=== PATIENT | female | born 1940 | race Caucasian/White ===

== ENCOUNTER 2018-05-12 00:26 | Inpatient (IN) ==
[2018-05-12] MEDS ORDERED: Pantoprazole Inj 80 MG in Sodium Chlor 0.9% Inj 50 ML IV.SIG ONE (00:56)
[2018-05-12] MEDS ORDERED: Sod Chloride 0.9% Inj 1,000 ML IV.CONT SCH (01:00)
--- NOTE | 2018-05-12 01:27 | XR ---
EXAM DATE: 05/12/2018 1:19 AM EDT AGE/SEX: 77 years / Female INDICATIONS: G-I Bleed. CLINICAL DATA: This is the patient's initial encounter. Patient reports that signs and symptoms have been present for 1 day and indicates a pain score of 0/10. MEDICAL/SURGICAL HISTORY: Hypertension. None. COMPARISON: [place], CHEST SINGLE AP, 05/17/2013. . FINDINGS: Mild atelectasis of both bases. No large effusions seen. No pneumothorax. Heart size upper limits of normal. Thoracic aorta is tortuous. There is a hiatal hernia. CONCLUSION: Mild bibasilar atelectasis. Hiatal hernia. Electronically signed by: Gerard Patel MD 05/12/2018 1:25 AM EDT
[2018-05-12 01:35] LABS: Baso # (Auto) 0.1 th/mm3 (0.0-0.2); Baso % (Auto) 0.9 % (0.0-2.0); Eos # (Auto) 0.7 th/mm3 (0.0-0.4); Eos % (Auto) 8.8 % (0.0-4.0); Hematocrit 27.4 % (35.0-46.0); Hemoglobin 9.5 gm/dL (11.6-15.3); Lymph # (Auto) 2.2 th/mm3 (1.0-4.8); Mean Corpuscular HGB Conc 34.6 % (32.0-36.0); Mean Corpuscular Hemoglobin 30.9 pg (27.0-34.0); Mean Corpuscular Volume 89.1 fL (80.0-100.0); Mean Platelet Volume 8.8 fL (7.0-11.0); Mono # (Auto) 0.9 th/mm3 (0.0-0.9); Mono % (Auto) 12.1 % (0.0-8.0); Neut # (Auto) 3.7 th/mm3 (1.8-7.7); Neut % (Auto) 49.2 % (16.0-70.0); Platelet Count 250 th/mm3 (150-450); Red Blood Count 3.07 mil/mm3 (4.00-5.30); Red Cell Distribution Width 14.8 % (11.6-17.2); White Blood Count 7.5 th/mm3 (4.0-11.0)
[2018-05-12 01:47] LABS: Alanine Aminotransferase 16 U/L (10-53); Albumin 2.6 g/dL (3.4-5.0); Anion Gap 9 meq/L (5-15); Aspartate Aminotransferase 11 U/L (15-37); Blood Urea Nitrogen 19 mg/dL (7-18); Calcium 7.5 mg/dL (8.5-10.1); Carbon Dioxide 23.6 meq/L (21.0-32.0); Chloride 110 meq/L (98-107); Glomerular Filtration Rate 58 mL/min (>89); Glucose,Random 135 mg/dL (74-106); Lipase 244 U/L (73-393); Magnesium 2.1 mg/dL (1.5-2.5); Potassium 3.8 meq/L (3.5-5.1); Sodium 143 meq/L (136-145)
[2018-05-12 01:51] LABS: Alkaline Phosphatase 46 U/L (45-117)
[2018-05-12] MEDS: Pantoprazole Inj 80 MG in Sodium Chlor 0.9% Inj 100 ML IV.CONT SCH ×2 (01:53→12:41)
[2018-05-12 02:06] LABS: Activated Partial Thrombo Time 24.7 sec (24.3-30.1); INR 1.1 Ratio; Prothrombin Time 11.4 sec (9.8-11.6)
--- NOTE | 2018-05-12 02:51 | ED ---
HPI General Chief complaint: GI Bleed Stated complaint: Bleeding Time Seen by Provider: 05/12/18 00:36 Source: patient Limitations: no limitations History of Present Illness HPI narrative: The patient is a 77 year old female who presents to the [facility] emergency department with a history of developing bright red blood per rectum approximate 3 hours prior to arrival. She reports that she then began to have dyspnea on exertion and lightheaded sensation. The patient reports that she has had a GI bleed in the past requiring blood transfusion. She last had a GI bleed approximately 6 years ago that she believes was diverticular. The patient was noted by ambulance services upon their arrival to have a blood pressure of 75 systolic. The patient had IV access obtained and was given 1500 mL of normal saline in route to this facility. She denies having any chest pain. She denies having any abdominal pain. She reports that her stool is maroon in color. She reports that she has had several bloody stools since the onset. She denies having any vomiting, however she reports having some nausea. On review of systems otherwise, the patient denies having any known recent fevers, cough, congestion, neck pain, urinary symptoms, or neurologic symptoms. Related Data Home Medications Medication Instructions Recorded Confirmed alprazolam 0.5 mg PO BID PRN 05/12/18 05/12/18 amlodipine 10 mg PO DAILY 05/12/18 05/12/18 sertraline 25 mg PO DAILY 05/12/18 05/12/18 Allergies Allergy/AdvReac Type Severity Reaction Status Date / Time *MDRO Multi-Drug Resistant Allergy Unknown Uncoded 08/22/15 22:22 Organism Review of Systems ROS: all other systems reviewed are negative (Except for that which was mentioned in the HPI) [facility] Medical History Medical History Anxiety (Acute) Hypertension (Acute) Allergic rhinitis (Acute) Diverticulosis (Acute) GI bleed (Acute) Surgical History Surgical History History of partial hysterectomy (Acute) Social History Social History Second Hand Smoke Exposure: No Smoking Status: Never smoker How Often Do You Have a Drink Containing Alcohol: Never Immunization History Tetanus Immunization: Unsure Hx Influenza Vaccine This Season: No Exam Const General: cooperative, no acute distress and well developed Nutritional Appearance: well nourished Orientation: alert, awake and oriented x3 HENMT Head: normocephalic and atraumatic Nose: no nasal discharge and no epistaxis Mouth: moist mucous membranes Throat: posterior oropharynx normal and uvula midline Eyes Sclera: normal sclerae Pupils: PERRL Neck Neck: no meningeal signs, trachea midline and no JVD Resp Effort & Inspection: no use of accessory muscles Auscultation: clear to auscultation bilaterally Cardio Rate: regular rate Rhythm: regular rhythm Heart Sounds: no gallops, no murmurs and no rubs GI Inspection: non-distended Palpation: soft, no hepatosplenomegaly, no guarding, not rigid and nontender Auscultation: normal bowel sounds Rectal Exam: visual inspection normal, heme positive stool and other (Maroon stool. No masses palpable.) Back/Spine/Pelvis Back: no CVA tenderness Skin General: dry skin (warm) Neuro General: alert, awake and oriented x3 Cranial Nerves: other Speech: speech normal Motor: no movement abnormalities noted Extrem General: normal to inspection (No calf tenderness on palpation. 2+ pulses in all 4 extremities.), no clubbing, no cyanosis and edema (Trace pedal edema.) Laterality: bilaterally Psych Mood: congruent mood Affect: normal affect Judgment: judgment good Course Reevaluation(s) Reevaluation #1: The patient's blood pressure remained stable. The patient had no acute complaints. Consultations Consultation #1: The patient's case including history, pertinent physical examination findings, and laboratory studies were discussed with Dr. Hughes. It was agreed that the patient would be admitted to the hospitalist service. Initial Documented Vital Signs Temperature 97.8 F 05/12/18 00:30 Pulse Rate 81 05/12/18 00:30 Respiratory Rate 15 05/12/18 00:30 Blood Pressure 143/75 H 05/12/18 00:30 Pulse Oximetry 98 05/12/18 00:30 Last Documented Vital Signs Temperature 97.8 F 05/12/18 00:30 Pulse Rate 90 05/12/18 07:30 Respiratory Rate 20 05/12/18 07:30 Blood Pressure 129/60 05/12/18 07:30 Pulse Oximetry 99 05/12/18 07:30 Medical Decision Making MDM Narrative Medical decision making narrative: During the course of the patient's emergency department visit, the patient's history, examination, and differential diagnosis were reviewed with the patient. The patient was placed on a campus monitor with oximetry and frequent blood pressure monitoring. The patient had IV access obtained and blood work sent for analysis. A diagnostic evaluation was started regarding the patient's GI bleeding. The patient's electronic medical record was reviewed. The patient was initially provided Protonix 80 mg IV followed by a Protonix drip. The patient was continued on normal saline IV fluids. The patient's diagnostic evaluation is remarkable for a white count that is normal at 7.5, monocytosis of 12.1, hemoglobin 9.5 which will be monitored closely, platelets 250. PT 11.4, INR 1.1, PTT 24.7, chemistries are remarkable for a troponin I of less than 0.02, total protein 6, glucose 135, GFR 58, chloride 110, calcium 7.5, BUN 19, AST 11, ammonia level is elevated at 35, albumin 2.6. Magnesium within normal limits at 2.1, lipase within normal limits , chest x-ray shows mild basilar atelectasis, hiatal hernia, otherwise no acute abnormality. CT scan of the abdomen and pelvis reveals no obstruction or acute inflammatory change, considerable stool throughout the colon especially the rectum, mild diverticulosis of the colon without diverticulitis, questionable ill-defined mass at the pancreatic tail. There is also diffuse pancreatic duct dilatation of uncertain etiology, and multiphasic MRI of the abdomen with and without contrast is recommended, moderate to large hiatal hernia, Benign- appearing cysts of the liver are noted, bladder stones with suspected mild cystitis in the proper clinical setting are also noted, no other acute abnormality. The patient's results were discussed with the patient, including the plan of care. I explained that further testing and/ or monitoring is indicated based on the patient's history, examination, and/ or laboratory findings. Therefore, I recommended admission for additional evaluation. The patient expressed understanding and was agreeable with this plan. The patient was admitted to the hospital in guarded condition and sent to a bed under the care of the [facility] service. Medical Screen Exam Complete: Yes Emergency Medical Condition: Yes Differential Diagnosis Differential Diagnosis: Recurrent diverticular bleed, versus AVM malformation, versus hemorrhoidal bleeding, versus varices, versus peptic ulcer bleeding Medical Records Medical records reviewed: Yes I reviewed the patient's medical records. Lab Data Lab results reviewed: Yes I reviewed the patient's lab results. Result diagrams: 05/12/18 01:10 05/12/18 01:10 Lab Results 05/12/18 05/12/18 05/12/18 Range/Units 01:10 01:10 01:10 WBC 7.5 (4.0-11.0) th/mm3 RBC 3.07 L (4.00-5.30) mil/mm3 Hgb 9.5 L (11.6-15.3) gm/dL Hct 27.4 L (35.0-46.0) % MCV 89.1 (80.0-100.0) fL MCH 30.9 (27.0-34.0) pg MCHC 34.6 (32.0-36.0) % RDW 14.8 (11.6-17.2) % Plt Count 250 (150-450) th/mm3 MPV 8.8 (7.0-11.0) fL Neut % (Auto) 49.2 (16.0-70.0) % Lymph % (Auto) 29.0 (9.0-44.0) % Bates % (Auto) 12.1 H (0.0-8.0) % Eos % (Auto) 8.8 H (0.0-4.0) % Baso % (Auto) 0.9 (0.0-2.0) % Neut # (Auto) 3.7 (1.8-7.7) th/mm3 Lymph # (Auto) 2.2 (1.0-4.8) th/mm3 Bates # (Auto) 0.9 (0.0-0.9) th/mm3 Eos # (Auto) 0.7 H (0.0-0.4) th/mm3 Baso # (Auto) 0.1 (0.0-0.2) th/mm3 WBC Differential . Differential Comment Auto diff final PT (9.8-11.6) sec INR Ratio APTT (24.3-30.1) sec Sodium 143 (136-145) meq/L Potassium 3.8 (3.5-5.1) meq/L Chloride 110 H (98-107) meq/L Carbon Dioxide 23.6 (21.0-32.0) meq/L Anion Gap 9 (5-15) meq/L BUN 19 H (7-18) mg/dL Creatinine 0.93 (0.50-1.00) mg/dL Estimated GFR 58 L (>89) mL/min Random Glucose 135 H (74-106) mg/dL Calcium 7.5 L (8.5-10.1) mg/dL Magnesium 2.1 (1.5-2.5) mg/dL Total Bilirubin 0.3 (0.2-1.0) mg/dL AST 11 L (15-37) U/L ALT 16 (10-53) U/L Alkaline Phosphatase 46 (45-117) U/L Ammonia 35 H (11-32) mcmol/L Troponin I Less than 0.02 L (0.02-0.05) ng/mL Total Protein 6.0 L (6.4-8.2) g/dL Albumin 2.6 L (3.4-5.0) g/dL Lipase 244 (73-393) U/L Blood Type Blood Type Recheck Antibody Screen 05/12/18 05/12/18 Range/Units 01:10 01:10 WBC (4.0-11.0) th/mm3 RBC (4.00-5.30) mil/mm3 Hgb (11.6-15.3) gm/dL Hct (35.0-46.0) % MCV (80.0-100.0) fL MCH (27.0-34.0) pg MCHC (32.0-36.0) % RDW (11.6-17.2) % Plt Count (150-450) th/mm3 MPV (7.0-11.0) fL Neut % (Auto) (16.0-70.0) % Lymph % (Auto) (9.0-44.0) % Bates % (Auto) (0.0-8.0) % Eos % (Auto) (0.0-4.0) % Baso % (Auto) (0.0-2.0) % Neut # (Auto) (1.8-7.7) th/mm3 Lymph # (Auto) (1.0-4.8) th/mm3 Bates # (Auto) (0.0-0.9) th/mm3 Eos # (Auto) (0.0-0.4) th/mm3 Baso # (Auto) (0.0-0.2) th/mm3 WBC Differential Differential Comment PT 11.4 (9.8-11.6) sec INR 1.1 Ratio APTT 24.7 (24.3-30.1) sec Sodium (136-145) meq/L Potassium (3.5-5.1) meq/L Chloride (98-107) meq/L Carbon Dioxide (21.0-32.0) meq/L Anion Gap (5-15) meq/L BUN (7-18) mg/dL Creatinine (0.50-1.00) mg/dL Estimated GFR (>89) mL/min Random Glucose (74-106) mg/dL Calcium (8.5-10.1) mg/dL Magnesium (1.5-2.5) mg/dL Total Bilirubin (0.2-1.0) mg/dL AST (15-37) U/L ALT (10-53) U/L Alkaline Phosphatase (45-117) U/L Ammonia (11-32) mcmol/L Troponin I (0.02-0.05) ng/mL Total Protein (6.4-8.2) g/dL Albumin (3.4-5.0) g/dL Lipase (73-393) U/L Blood Type A Positive Blood Type Recheck Not needed Antibody Screen Negative Imaging Data Radiologist's impression: Abdomen/Pelvis CT 05/12/18 00:56 CONCLUSION: 1. No obstruction or acute inflammatory changes are seen of the gastrointestinal tract. Considerable stool throughout the colon, especially the rectum. There is mild diverticulosis of the colon without perceptible diverticulitis. 2. Questionable ill-defined mass of the pancreatic tail. There is also diffuse pancreatic duct dilatation of uncertain etiology. Multiphasic MRI of the abdomen with and without contrast recommended. 3. A few scattered small, benign-appearing cysts of the liver. Relatively large but benign-appearing cysts of each kidney. 4. Bladder stones and suspected mild cystitis in the proper clinical setting. Please correlate clinically and with urinalysis. 5. Moderate to large hiatal hernia. Chest X-Ray 05/12/18 00:56 CONCLUSION: Mild bibasilar atelectasis. Hiatal hernia. ECG Data Attestation: I personally reviewed and interpreted this ECG as follows: Interpretation: The patient had an EKG done on arrival. The patient's EKG reveals sinus rhythm heart rate of 76, QRS duration 94 ms, QTC [address] segment elevation. Discharge Plan Discharge Disposition Patient Disposition: 30 Still Patient Discharge Details Diagnosis: Acute GI bleeding Physicians Team ED Provider: Allyn Wagner Primary Care Provider: Jaswinder Roberson Attending Provider: Jaswinder Moeller Other Providers: Karla Oliver Status ED Status: Admitted Observation Patient
--- NOTE | 2018-05-12 03:56 | CT ---
EXAM DATE: 05/12/2018 3:42 AM EDT AGE/SEX: 77 years / Female INDICATIONS: Rectal bleeding CLINICAL DATA: This is the patient's initial encounter. Patient reports that signs and symptoms have been present for 1 day and indicates a pain score of 0/10. MEDICAL/SURGICAL HISTORY: Hypertension. Hysterectomy. ORAL CONTRAST: No oral contrast ingested. RADIATION DOSE: 6.64 CTDI (mGy) COMPARISON: No prior exams available for comparison. TECHNIQUE: Multiple contiguous axial images were obtained through the abdomen and pelvis following b olus infusion of 96 ml Omnipaque 350 (iohexol) nonionic water-soluble contrast as a single exam dos e. No oral contrast ingested. Using automated exposure control and adjustment of the mA and/or kV ac cording to patient size, radiation dose was kept as low as reasonably achievable to obtain optimal di agnostic quality images. DICOM format image data is available electronically for review and comparis on. FINDINGS: A few scattered cysts are seen of the liver. Spleen is within normal limits. There is dilatation of the pancreatic duct all the way to the ampulla, etiology uncertain. No bile du ct dilatation. There is a questionable ill-defined low-density mass of the pancreatic tail measuring 2.2 cm, series 2 image 17. Adrenal glands within normal limits. There are bilateral renal cysts measure 4.9 cm on the right and 4.8 cm on the left. No obstruction or acute inflammatory changes are seen of the gastrointestinal tract. Considerable sto ol throughout the colon, especially the rectum. There are a few scattered diverticula of the entire c olon but without evidence of diverticulitis. There are bladder stones, one measuring 2.5 cm and another measuring 0.9 cm. Mild mucosal enhancement and posterior wall thickening of the urinary bladder. Abdominal aorta is atherosclerotic and tortuous. No aneurysm. There is a moderate to large hiatal hernia. CONCLUSION: 1. No obstruction or acute inflammatory changes are seen of the gastrointestinal tract. Considerable stool throughout the colon, especially the rectum. There is mild diverticulosis of the colon without perceptible diverticulitis. 2. Questionable ill-defined mass of the pancreatic tail. There is also diffuse pancreatic duct dilat ation of uncertain etiology. Multiphasic MRI of the abdomen with and without contrast recommended. 3. A few scattered small, benign-appearing cysts of the liver. Relatively large but benign-appearing cysts of each kidney. 4. Bladder stones and suspected mild cystitis in the proper clinical setting. Please correlate clini tahir and with urinalysis. 5. Moderate to large hiatal hernia. Electronically signed by: Gerard Patel MD 05/12/2018 3:54 AM EDT
[2018-05-12] MEDS ORDERED: Acetaminophen 325 MG Tablet PO PRN (04:36)
[2018-05-12] MEDS ORDERED: Bisacodyl 10 MG Supp RECTAL PRN (04:36)
--- NOTE | 2018-05-12 04:57 | P.HPIM ---
History of Present Illness Primary Care Physician: Jaswinder Roberson DO History of Present Illness: This is a 77-year-old female with a PMH of Anxiety, Diverticulosis, h/o GI Bleed and HTN who was brought to the ER by EMS for acute onset of rectal bleeding starting earlier this evening. Notes associated lightheadedness/ dizziness. Upon EMS arrival, noted to be hypotensive w/ BP 70's, good response to IVF, BP 140's while in ER. Denies nausea, vomiting or diarrhea. On arrival , BP 143/75, HR 81, O2 sat 98% on RA, Afebrile. Hemoglobin 9.5, no previous labs for comparison. INR 1.1. Chemistry unremarkable except for GFR 58. Troponin negative. CT Abdomen/Pelvis considerable stool throughout the colon especially the rectum, possible ill-defined mass pancreatic tail with recommendation for MRI of the abdomen renal cysts, bladder stone, possible mild cystitis. Hemoccult + on exam. Of note, pt relays that she wishes to be a DNR , is agreeable to transfusion in needed, but does not want resuscitation or intubation. - Diagnosis (1) GI bleed (2) Anemia (3) Pancreatic mass (4) DNR (do not resuscitate) Review of Systems PAST FAMILY HISTORY: Reviewed. 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 - Medical History Medical History: Medical History (Last Updated 05/12/18 @ 02:46 by Allyn Wagner MD) Anxiety Hypertension Allergic rhinitis Diverticulosis GI bleed - Surgical History Surgical History: Surgical History (Last Reviewed 05/12/18 @ 02:45 by Allyn Wagner MD) History of partial hysterectomy - Tobacco History Second Hand Smoke Exposure: No Smoking Status: Never smoker - Alcohol History How Often Do You Have a Drink Containing Alcohol: Never - Immunization History Tetanus Immunization: Unsure Hx Influenza Vaccine This Season: No Medications and Allergies Active Medications: Active Medications Acetaminophen (Tylenol) 650 mg PO Q4H PRN PRN Reason: Temp > 100.4 Al Hydroxide/Mg Hydroxide (Milk Of Magnjessa Liq) 30 ml PO Q12H PRN PRN Reason: Mild Constipation Bisacodyl (Dulcolax Supp) 10 mg RECTAL DAILY PRN PRN Reason: SEVERE CONSITIPATION Pantoprazole Sodium 80 mg/ (Sodium Chloride) 100 mls @ 10 mls/hr IV.CONT CONT SATURNINO Last Admin: 05/12/18 01:53 Dose: 10 mls/hr Sodium Chloride (Ns Inj) 1,000 mls @ 100 mls/hr IV.CONT .Q10H SATURNINO Lactulose (Lactulose Liq) 30 ml PO DAILY PRN PRN Reason: SEVERE CONSITIPATION Ondansetron HCl (Zofran Inj) 4 mg IV.PUSH Q6H PRN PRN Reason: NAUSEA OR VOMITING Senna/Docusate Sodium (Melida-Colace) 1 tab PO BID SATURNINO Sennosides (Senokot) 17.2 mg PO Q12H PRN PRN Reason: Moderate Constipation Sodium Chloride (Ns Flush) 2 ml IV.FLUSH PRN PRN PRN Reason: FLUSH AFTER USING IV ACCESS Allergies Allergy/AdvReac Type Severity Reaction Status Date / Time *MDRO Multi-Drug Resistant Allergy Unknown Uncoded 08/22/15 22:22 Organism Home Medications Medication Instructions Recorded Confirmed Type alprazolam 0.5 mg PO BID PRN 05/12/18 05/12/18 History amlodipine 10 mg PO DAILY 05/12/18 05/12/18 History sertraline 25 mg PO DAILY 05/12/18 05/12/18 History Exam Vital signs: Vital Signs 05/12/18 00:30 Temperature 97.8 F Pulse Rate 81 Respiratory Rate 15 Blood Pressure 143/75 H Pulse Oximetry 98 Intake & Output 05/11/18 05/11/18 05/12/18 06:59 18:59 06:59 Weight 65 kg Narrative: PE: GENERAL: Very pleasant elderly white female in no acute distress, ambulating to and from bathroom without difficulty. HEENT: PERRLA, EOMI. No scleral icterus or conjunctival pallor. No lid lag or facial droop. CARDIOVASCULAR: Regular rate and rhythm. No obvious murmurs to auscultation. No chest tenderness to palpation. RESPIRATORY: No obvious rhonchi or wheezing. Clear to auscultation. Breath sounds equal bilaterally. GASTROINTESTINAL: Abdomen soft, non-tender, nondistended. BS normal. MUSCULOSKELETAL: Extremities without clubbing, cyanosis, or edema. No obvious deformities. NEUROLOGICAL: Awake, alert and oriented x4. No focal neurologic deficits. Moving both upper and lower extremities spontaneously. Results - Labs CBC & Chem 7: 05/12/18 01:10 05/12/18 01:10 Labs: Short CBC 05/12/18 Range/Units 01:10 WBC 7.5 (4.0-11.0) th/mm3 Hgb 9.5 L (11.6-15.3) gm/dL Hct 27.4 L (35.0-46.0) % Plt Count 250 (150-450) th/mm3 BMP 05/12/18 01:10 Sodium 143 Potassium 3.8 Chloride 110 H Carbon Dioxide 23.6 BUN 19 H Creatinine 0.93 Calcium 7.5 L Cardiac Enzymes 05/12/18 Range/Units 01:10 Troponin I Less than 0.02 L (0.02-0.05) ng/mL Liver Function 05/12/18 Range/Units 01:10 Total Bilirubin 0.3 (0.2-1.0) mg/dL AST 11 L (15-37) U/L ALT 16 (10-53) U/L Alkaline Phosphatase 46 (45-117) U/L Albumin 2.6 L (3.4-5.0) g/dL - Imaging Impressions Abdomen/Pelvis CT 05/12/18 00:56 CONCLUSION: 1. No obstruction or acute inflammatory changes are seen of the gastrointestinal tract. Considerable stool throughout the colon, especially the rectum. There is mild diverticulosis of the colon without perceptible diverticulitis. 2. Questionable ill-defined mass of the pancreatic tail. There is also diffuse pancreatic duct dilatation of uncertain etiology. Multiphasic MRI of the abdomen with and without contrast recommended. 3. A few scattered small, benign-appearing cysts of the liver. Relatively large but benign-appearing cysts of each kidney. 4. Bladder stones and suspected mild cystitis in the proper clinical setting. Please correlate clinically and with urinalysis. 5. Moderate to large hiatal hernia. Chest X-Ray 05/12/18 00:56 CONCLUSION: Mild bibasilar atelectasis. Hiatal hernia. Caprini VTE Risk Assessment Caprini VTE Risk Assessment: No/Low Risk (score <= 1) VTE Pharmacological Exception Reason: Active bleeding Caprini Risk Assessment Model: Point Value = 1 Point Value = 2 Point Value = 3 Point Value = 5 Age 41-60 Minor surgery BMI > 25 kg/m2 Swollen legs Varicose veins or History of unexplained or recurrent spontaneous Oral contraceptives or hormone replacement Sepsis (< 1 month) Serious lung disease, including pneumonia (< 1 month) Abnormal pulmonary function Acute myocardial infarction Congestive heart failure (< 1 month) History of inflammatory bowel disease Medical patient at bed rest Age 61-74 Arthroscopic surgery Major open surgery (> 45 min) Laparoscopic surgery (> 45 min) Malignancy Confined to bed (> 72 hours) Immobilizing plaster cast Central venous access Age >= 75 History of VTE Family history of VTE Factor V Leiden Prothrombin [id number] Lupus anticoagulant Anticardiolipin antibodies Elevated serum homocysteine Heparin-induced thrombocytopenia Other congenital or acquired thrombophilia Stroke (< 1 month) Elective arthroplasty Hip, pelvis, or leg fracture Acute spinal cord injury (< 1 month) Prophylaxis Regimen: Total Risk Factor Score Risk Level Prophylaxis Regimen 0-1 Low Early ambulation 2 Moderate Order ONE of the following: *Sequential Compression Device (SCD) *Heparin 5000 units SQ BID 3-4 Higher Order ONE of the following medications: *Heparin 5000 units SQ TID *Enoxaparin/Lovenox 40 mg SQ daily (WT < 150 kg, CrCl > 30 mL/min) *Enoxaparin/Lovenox 30 mg SQ daily (WT < 150 kg, CrCl > 10-29 mL/min) *Enoxaparin/Lovenox 30 mg SQ BID (WT < 150 kg, CrCl > 30 mL/min) AND/OR *Sequential Compression Device (SCD) 5 or more Highest Order ONE of the following medications: *Heparin 5000 units SQ TID (Preferred with Epidurals) *Enoxaparin/Lovenox 40 mg SQ daily (WT < 150 kg, CrCl > 30 mL/min) *Enoxaparin/Lovenox 30 mg SQ daily (WT < 150 kg, CrCl > 10-29 mL/min) *Enoxaparin/Lovenox 30 mg SQ BID (WT < 150 kg, CrCl > 30 mL/min) AND *Sequential Compression Device (SCD) Assessment and Plan - Assessment (1) GI bleed Code(s): K92.2 - Gastrointestinal hemorrhage, unspecified Status: Acute (2) Anemia Code(s): D64.9 - Anemia, unspecified Status: Acute (3) Pancreatic mass Code(s): K86.9 - Disease of pancreas, unspecified Status: Acute (4) DNR (do not resuscitate) Code(s): Z66 - Do not resuscitate Status: Acute - Plan A/P: 1. GI Bleed: acute onset rectal bleeding, h/o GI Bleed from Diverticulosis, Hemoccult + on exam, currently on Protonix gtt, NPO, IVF, GI Consult for further eval/intervention. 2. Anemia: Hgb 9.3, no previous labs for comparison, recheck Hgb/Hct, transfuse as needed. 3. Pancreatic Mass: CT Abd/Pelvis w/ questionable pancreatic mass, recommendation for MRI, will obtain MRI Abd for further evaluation. 4. DNR: Code Status confirmed with patient, agreeable to transfusion if needed , however does not want intubation/resuscitation. 5. DVT Prophylaxis: Pharmacologic contraindication in light of GI Bleed 6. Social work for DC planning as needed. 7. Case discussed at length with the ER physician, lab/record/imaging reviewed by me.
[2018-05-12] MEDS: Sod Chloride 0.9% Inj 1,000 ML IV.CONT SCH ×2 (05:01→15:50)
--- NOTE | 2018-05-12 10:32 | P.PNIM ---
Subjective Interval history: This is a 77-year-old female with a PMH of Anxiety, Diverticulosis, h/o GI Bleed and HTN who was brought to the ER by EMS for acute onset of rectal bleeding starting earlier this evening. Notes associated lightheadedness/ dizziness. Upon EMS arrival, noted to be hypotensive w/ BP 70's, good response to IVF, BP 140's while in ER. Denies nausea, vomiting or diarrhea. On arrival , BP 143/75, HR 81, O2 sat 98% on RA, Afebrile. Hemoglobin 9.5, no previous labs for comparison. INR 1.1. Chemistry unremarkable except for GFR 58. Troponin negative. CT Abdomen/Pelvis considerable stool throughout the colon especially the rectum, possible ill-defined mass pancreatic tail with recommendation for MRI of the abdomen renal cysts, bladder stone, possible mild cystitis. Hemoccult + on exam. Of note, pt relays that she wishes to be a DNR , is agreeable to transfusion in needed, but does not want resuscitation or intubation. 8 to go for MRI OF ABDOMEN TODAY GI HAS BEEN CONSULTED IS A DNR ?PANCREATIC MASS TO HAVE MRI--HAD MRI ANXIETY- NEEDS ATIVAN FOR MRI TO HAVE COLONOSCOPY TOMORROW Physical Exam Vital signs: Vital Signs 05/12/18 00:30 05/12/18 00:57 05/12/18 06:00 Temperature 97.8 F Pulse Rate 81 70 75 Respiratory Rate 15 15 Blood Pressure 143/75 H 118/59 L Pulse Oximetry 98 95 05/12/18 07:30 05/12/18 08:00 Temperature 98.4 F Pulse Rate 90 85 Respiratory Rate 20 12 Blood Pressure 129/60 129/64 Pulse Oximetry 99 97 Intake & Output 05/11/18 05/12/18 05/12/18 18:59 06:59 18:59 Weight 65 kg Narrative: GENERAL: Very pleasant elderly white female in no acute distress, ambulating to and from bathroom without difficulty. HEENT: PERRLA, EOMI. No scleral icterus or conjunctival pallor. No lid lag or facial droop. CARDIOVASCULAR: Regular rate and rhythm. No obvious murmurs to auscultation. No chest tenderness to palpation. RESPIRATORY: No obvious rhonchi or wheezing. Clear to auscultation. Breath sounds equal bilaterally. GASTROINTESTINAL: Abdomen soft, non-tender, nondistended. BS normal. MUSCULOSKELETAL: Extremities without clubbing, cyanosis, or edema. No obvious deformities. NEUROLOGICAL: Awake, alert and oriented x4. No focal neurologic deficits. Moving both upper and lower extremities spontaneously. Results - Labs CBC & Chem 7: 05/12/18 01:10 05/12/18 01:10 Laboratory Results - last 24 hr 05/12/18 05/12/18 05/12/18 01:10 01:10 01:10 WBC 7.5 RBC 3.07 L Hgb 9.5 L Hct 27.4 L MCV 89.1 MCH 30.9 MCHC 34.6 RDW 14.8 Plt Count 250 MPV 8.8 Neut % (Auto) 49.2 Lymph % (Auto) 29.0 Tucker % (Auto) 12.1 H Eos % (Auto) 8.8 H Baso % (Auto) 0.9 Neut # (Auto) 3.7 Lymph # (Auto) 2.2 Tucker # (Auto) 0.9 Eos # (Auto) 0.7 H Baso # (Auto) 0.1 WBC Differential . Differential Comment Auto diff final PT INR APTT Sodium 143 Potassium 3.8 Chloride 110 H Carbon Dioxide 23.6 Anion Gap 9 BUN 19 H Creatinine 0.93 Estimated GFR 58 L Random Glucose 135 H Calcium 7.5 L Magnesium 2.1 Total Bilirubin 0.3 AST 11 L ALT 16 Alkaline Phosphatase 46 Ammonia 35 H Troponin I Less than 0.02 L Total Protein 6.0 L Albumin 2.6 L Lipase 244 Blood Type Blood Type Recheck Antibody Screen 05/12/18 05/12/18 01:10 01:10 WBC RBC Hgb Hct MCV MCH MCHC RDW Plt Count MPV Neut % (Auto) Lymph % (Auto) Tucker % (Auto) Eos % (Auto) Baso % (Auto) Neut # (Auto) Lymph # (Auto) Tucker # (Auto) Eos # (Auto) Baso # (Auto) WBC Differential Differential Comment PT 11.4 INR 1.1 APTT 24.7 Sodium Potassium Chloride Carbon Dioxide Anion Gap BUN Creatinine Estimated GFR Random Glucose Calcium Magnesium Total Bilirubin AST ALT Alkaline Phosphatase Ammonia Troponin I Total Protein Albumin Lipase Blood Type A Positive Blood Type Recheck Not needed Antibody Screen Negative - Imaging Impressions Abdomen/Pelvis CT 05/12/18 00:56 CONCLUSION: 1. No obstruction or acute inflammatory changes are seen of the gastrointestinal tract. Considerable stool throughout the colon, especially the rectum. There is mild diverticulosis of the colon without perceptible diverticulitis. 2. Questionable ill-defined mass of the pancreatic tail. There is also diffuse pancreatic duct dilatation of uncertain etiology. Multiphasic MRI of the abdomen with and without contrast recommended. 3. A few scattered small, benign-appearing cysts of the liver. Relatively large but benign-appearing cysts of each kidney. 4. Bladder stones and suspected mild cystitis in the proper clinical setting. Please correlate clinically and with urinalysis. 5. Moderate to large hiatal hernia. Chest X-Ray 05/12/18 00:56 CONCLUSION: Mild bibasilar atelectasis. Hiatal hernia. Assessment and Plan - Assessment (1) GI bleed Code(s): K92.2 - Gastrointestinal hemorrhage, unspecified Status: Acute (2) Anemia Code(s): D64.9 - Anemia, unspecified Status: Acute (3) Pancreatic mass Code(s): K86.9 - Disease of pancreas, unspecified Status: Acute (4) DNR (do not resuscitate) Code(s): Z66 - Do not resuscitate Status: Acute - Plan 1. GI Bleed: acute onset rectal bleeding, h/o GI Bleed from Diverticulosis, Hemoccult + on exam, currently on Protonix gtt, NPO, IVF, GI Consult for further eval/intervention. 2. Anemia: Hgb 9.3, no previous labs for comparison, recheck Hgb/Hct, transfuse as needed. 3. Pancreatic Mass: CT Abd/Pelvis w/ questionable pancreatic mass, recommendation for MRI, will obtain MRI Abd for further evaluation. --MRI SHOWS ABNORMAL PANCREAS 4. DNR: Code Status confirmed with patient, agreeable to transfusion if needed , however does not want intubation/resuscitation. 5. DVT Prophylaxis: Pharmacologic contraindication in light of GI Bleed 6. Social work for DC planning as needed. ANXIETY WILL GIVE ATIVAN PRIOR TO MRI -CONTINUE ALPRAZOLAM AND SERTRALINE HYPERTENSION CONTINUE AMLODIPINE Code Status: DNR Discussed Condition With: RN AND PT AND CASE MANAGEMENT Discharge Planning: GI CLEARANCE
--- NOTE | 2018-05-12 10:43 | P.CONGI ---
History of Present Illness Consult date: 05/12/18 Chief complaint: GI Bleed History of Present Illness: This is a 77-year-old female with a PMH of Anxiety, HTN, history of diverticular GI Bleed about 7 yrs ago who presented with acute onset of rectal bleeding started last night. This is described as bloody clots, significant amount, she had few episodes, but none since admission. Denies nausea, vomiting, abd pain, melena, constipation or diarrhea. On arrival, Hemoglobin 9.5, Hemoccult + on exam. CT Abdomen/Pelvis considerable stool throughout the colon especially the rectum, possible ill-defined mass pancreatic tail with recommendation for MRI of the abdomen renal cysts, bladder stone, possible mild cystitis. Last colonoscopy was 7 yrs ago by report. Pt denies previous hx of pancreatic issues, denies alcohol intake. States has been on Cipro for UTI. PT not on blood thinner. 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 - Medical History Medical History: Medical History (Last Reviewed 05/12/18 @ 11:08 by Cheryl Onofre) Anxiety Hypertension Allergic rhinitis Diverticulosis GI bleed - Surgical History Surgical History: Surgical History (Last Reviewed 05/12/18 @ 11:08 by Cheryl Onofre) History of partial hysterectomy - Tobacco History Second Hand Smoke Exposure: No Smoking Status: Never smoker - Alcohol History How Often Do You Have a Drink Containing Alcohol: Never - Immunization History Tetanus Immunization: Unsure Hx Influenza Vaccine This Season: No <Deon Bustos - Last Filed: 05/12/18 21:27> Medications and Allergies Active Medications: Active Medications Acetaminophen (Tylenol) 650 mg PO Q4H PRN PRN Reason: Temp > 100.4 Al Hydroxide/Mg Hydroxide (Milk Of Magnesia Liq) 30 ml PO Q12H PRN PRN Reason: Mild Constipation Alprazolam (Xanax) 0.5 mg PO BID PRN PRN Reason: Anxiety Amlodipine Besylate (Norvasc) 10 mg PO DAILY [facility] Last Admin: 05/12/18 11:17 Dose: 10 mg Bisacodyl (Dulcolax Supp) 10 mg RECTAL DAILY PRN PRN Reason: SEVERE CONSITIPATION Pantoprazole Sodium 80 mg/ (Sodium Chloride) 100 mls @ 10 mls/hr IV.CONT CONT [facility] Last Admin: 05/12/18 12:41 Dose: 10 mls/hr Sodium Chloride (Ns Inj) 1,000 mls @ 100 mls/hr IV.CONT .Q10H [facility] Last Infusion: 05/12/18 15:46 Dose: Infused Lactulose (Lactulose Liq) 30 ml PO DAILY PRN PRN Reason: SEVERE CONSITIPATION Miscellaneous (Pill Splitter) 1 each OTHER UNSCH PRN PRN Reason: SEE LABEL COMMENTS Ondansetron HCl (Zofran Inj) 4 mg IV.PUSH Q6H PRN PRN Reason: NAUSEA OR VOMITING Polyethylene Glycol/Electrolytes (Colyte Liq) 4,000 ml PO ONCE ONE Stop: 05/12/18 16:01 Senna/Docusate Sodium (Melida-Colace) 1 tab PO BID [facility] Last Admin: 05/12/18 11:18 Dose: Not Given Sennosides (Senokot) 17.2 mg PO Q12H PRN PRN Reason: Moderate Constipation Sertraline HCl (Zoloft) 25 mg PO DAILY [facility] Last Admin: 05/12/18 11:15 Dose: 25 mg Sodium Chloride (Ns Flush) 2 ml IV.FLUSH PRN PRN PRN Reason: FLUSH AFTER USING IV ACCESS <Karla Oliver - Last Filed: 05/12/18 15:48> Active Medications: Active Medications Acetaminophen (Tylenol) 650 mg PO Q4H PRN PRN Reason: Temp > 100.4 Al Hydroxide/Mg Hydroxide (Milk Of Magnesia Liq) 30 ml PO Q12H PRN PRN Reason: Mild Constipation Alprazolam (Xanax) 0.5 mg PO BID PRN PRN Reason: Anxiety Amlodipine Besylate (Norvasc) 10 mg PO DAILY [facility] Bisacodyl (Dulcolax Supp) 10 mg RECTAL DAILY PRN PRN Reason: SEVERE CONSITIPATION Pantoprazole Sodium 80 mg/ (Sodium Chloride) 100 mls @ 10 mls/hr IV.CONT CONT [facility] Last Admin: 05/12/18 01:53 Dose: 10 mls/hr Sodium Chloride (Ns Inj) 1,000 mls @ 100 mls/hr IV.CONT .Q10H [facility] Last Admin: 05/12/18 05:01 Dose: 100 mls/hr Lactulose (Lactulose Liq) 30 ml PO DAILY PRN PRN Reason: SEVERE CONSITIPATION Lorazepam (Ativan Inj) 1 mg IV.PUSH ONCE ONE Stop: 05/12/18 10:31 Ondansetron HCl (Zofran Inj) 4 mg IV.PUSH Q6H PRN PRN Reason: NAUSEA OR VOMITING Senna/Docusate Sodium (Melida-Colace) 1 tab PO BID [facility] Sennosides (Senokot) 17.2 mg PO Q12H PRN PRN Reason: Moderate Constipation Sertraline HCl (Zoloft) 25 mg PO DAILY [facility] Sodium Chloride (Ns Flush) 2 ml IV.FLUSH PRN PRN PRN Reason: FLUSH AFTER USING IV ACCESS <Deon Bustos - Last Filed: 05/12/18 21:27> Allergies Allergy/AdvReac Type Severity Reaction Status Date / Time *MDRO Multi-Drug Resistant Allergy Unknown Uncoded 08/22/15 22:22 Organism Home Medications Medication Instructions Recorded Confirmed Type alprazolam 0.5 mg PO BID PRN 05/12/18 05/12/18 History amlodipine 10 mg PO DAILY 05/12/18 05/12/18 History sertraline 25 mg PO DAILY 05/12/18 05/12/18 History Exam Vital signs: Vital Signs 05/12/18 00:30 05/12/18 00:57 05/12/18 06:00 Temperature 97.8 F Pulse Rate 81 70 75 Respiratory Rate 15 15 Blood Pressure 143/75 H 118/59 L Pulse Oximetry 98 95 05/12/18 07:30 05/12/18 08:00 05/12/18 12:00 Temperature 98.4 F 98.7 F Pulse Rate 90 85 82 Respiratory Rate 20 12 12 Blood Pressure 129/60 129/64 144/67 H Pulse Oximetry 99 97 97 Intake & Output 05/11/18 05/12/18 05/12/18 18:59 06:59 18:59 Intake Total 2149 Balance 2149 Weight 65 kg Intake: IV 2149 Protonix Inj 80 MG In NS Inj 100 / 100 100 ML @ 10 mls/hr IV.CONT CONT [facility] Rx#:[id number] NS Inj 1,000 ML @ 100 mls/hr IV 1999 .CONT .Q10H [facility] Rx#:[id number] <Karla Oliver - Last Filed: 05/12/18 15:48> Vital signs: Vital Signs 05/12/18 00:30 05/12/18 00:57 05/12/18 06:00 Temperature 97.8 F Pulse Rate 81 70 75 Respiratory Rate 15 15 Blood Pressure 143/75 H 118/59 L Pulse Oximetry 98 95 05/12/18 07:30 05/12/18 08:00 Temperature 98.4 F Pulse Rate 90 85 Respiratory Rate 20 12 Blood Pressure 129/60 129/64 Pulse Oximetry 99 97 Intake & Output 05/11/18 05/12/18 05/12/18 18:59 06:59 18:59 Weight 65 kg - Constitutional no acute distress - Routine HEENT Exam Head: Present: normocephalic - Routine Respiratory Exam Present: CTA bilaterally - Routine Cardiovascular Exam Present: RRR - Routine Abdominal Exam Present: soft, normoactive bowel sounds. Absent: tenderness - Routine Extremities Exam Absent: edema - Routine Skin Exam Present: intact, dry - Routine Neurological Exam Present: alert, oriented X3 <Deon Bustos - Last Filed: 05/12/18 21:27> Results - Labs CBC & Chem 7: 05/12/18 01:10 05/12/18 01:10 Labs: Laboratory Results - last 24 hr 05/12/18 05/12/18 05/12/18 01:10 01:10 01:10 WBC 7.5 RBC 3.07 L Hgb 9.5 L Hct 27.4 L MCV 89.1 MCH 30.9 MCHC 34.6 RDW 14.8 Plt Count 250 MPV 8.8 Neut % (Auto) 49.2 Lymph % (Auto) 29.0 Griggs % (Auto) 12.1 H Eos % (Auto) 8.8 H Baso % (Auto) 0.9 Neut # (Auto) 3.7 Lymph # (Auto) 2.2 Griggs # (Auto) 0.9 Eos # (Auto) 0.7 H Baso # (Auto) 0.1 WBC Differential . Differential Comment Auto diff final PT INR APTT Sodium 143 Potassium 3.8 Chloride 110 H Carbon Dioxide 23.6 Anion Gap 9 BUN 19 H Creatinine 0.93 Estimated GFR 58 L Random Glucose 135 H Calcium 7.5 L Magnesium 2.1 Total Bilirubin 0.3 AST 11 L ALT 16 Alkaline Phosphatase 46 Ammonia 35 H Troponin I Less than 0.02 L Total Protein 6.0 L Albumin 2.6 L Lipase 244 Carcinoembryonic Ag CA 19-9 Antigen TSH Free T4 Blood Type Blood Type Recheck Antibody Screen 05/12/18 05/12/18 05/12/18 01:10 01:10 01:10 WBC RBC Hgb Hct MCV MCH MCHC RDW Plt Count MPV Neut % (Auto) Lymph % (Auto) [place]iggs % (Auto) Eos % (Auto) Baso % (Auto) Neut # (Auto) Lymph # (Auto) Griggs # (Auto) Eos # (Auto) Baso # (Auto) WBC Differential Differential Comment PT 11.4 INR 1.1 APTT 24.7 Sodium Potassium Chloride Carbon Dioxide Anion Gap BUN Creatinine Estimated GFR Random Glucose Calcium Magnesium Total Bilirubin AST ALT Alkaline Phosphatase Ammonia Troponin I Total Protein Albumin Lipase Carcinoembryonic Ag CA 19-9 Antigen TSH Free T4 1.22 Blood Type A Positive Blood Type Recheck Not needed Antibody Screen Negative 05/12/18 05/12/18 05/12/18 01:10 11:40 11:40 WBC RBC Hgb Hct MCV MCH MCHC RDW Plt Count MPV Neut % (Auto) Lymph % (Auto) Griggs % (Auto) Eos % (Auto) Baso % (Auto) Neut # (Auto) Lymph # (Auto) Griggs # (Auto) Eos # (Auto) Baso # (Auto) WBC Differential Differential Comment PT INR APTT Sodium Potassium Chloride Carbon Dioxide Anion Gap BUN Creatinine Estimated GFR Random Glucose Calcium Magnesium Total Bilirubin AST ALT Alkaline Phosphatase Ammonia Troponin I Total Protein Albumin Lipase Carcinoembryonic Ag 3.8 CA 19-9 Antigen 36.3 H TSH 2.020 Free T4 Blood Type Blood Type Recheck Antibody Screen - Imaging Impressions Abdomen MRI 05/12/18 00:00 CONCLUSION: 1. Dilatation of the pancreatic duct from tail to ampulla with mild prominence uncinate process without focal mass. 2. Bilateral renal cyst 3. No adenopathy 4. No hepatic mass. 5. Endoscopic ultrasound could be used to further evaluate the pancreas. Abdomen/Pelvis CT 05/12/18 00:56 CONCLUSION: 1. No obstruction or acute inflammatory changes are seen of the gastrointestinal tract. Considerable stool throughout the colon, especially the rectum. There is mild diverticulosis of the colon without perceptible diverticulitis. 2. Questionable ill-defined mass of the pancreatic tail. There is also diffuse pancreatic duct dilatation of uncertain etiology. Multiphasic MRI of the abdomen with and without contrast recommended. 3. A few scattered small, benign-appearing cysts of the liver. Relatively large but benign-appearing cysts of each kidney. 4. Bladder stones and suspected mild cystitis in the proper clinical setting. Please correlate clinically and with urinalysis. 5. Moderate to large hiatal hernia. Chest X-Ray 05/12/18 00:56 CONCLUSION: Mild bibasilar atelectasis. Hiatal hernia. <Karla Oliver - Last Filed: 05/12/18 15:48> - Labs CBC & Chem 7: 05/12/18 01:10 05/12/18 01:10 Labs: Laboratory Results - last 24 hr 05/12/18 05/12/18 05/12/18 01:10 01:10 01:10 WBC 7.5 RBC 3.07 L Hgb 9.5 L Hct 27.4 L MCV 89.1 MCH 30.9 MCHC 34.6 RDW 14.8 Plt Count 250 MPV 8.8 Neut % (Auto) 49.2 Lymph % (Auto) 29.0 Griggs % (Auto) 12.1 H Eos % (Auto) 8.8 H Baso % (Auto) 0.9 Neut # (Auto) 3.7 Lymph # (Auto) 2.2 Griggs # (Auto) 0.9 Eos # (Auto) 0.7 H Baso # (Auto) 0.1 WBC Differential . Differential Comment Auto diff final PT INR APTT Sodium 143 Potassium 3.8 Chloride 110 H Carbon Dioxide 23.6 Anion Gap 9 BUN 19 H Creatinine 0.93 Estimated GFR 58 L Random Glucose 135 H Calcium 7.5 L Magnesium 2.1 Total Bilirubin 0.3 AST 11 L ALT 16 Alkaline Phosphatase 46 Ammonia 35 H Troponin I Less than 0.02 L Total Protein 6.0 L Albumin 2.6 L Lipase 244 Blood Type Blood Type Recheck Antibody Screen 05/12/18 05/12/18 01:10 01:10 WBC RBC Hgb Hct MCV MCH MCHC RDW Plt Count MPV Neut % (Auto) Lymph % (Auto) Griggs % (Auto) Eos % (Auto) Baso % (Auto) Neut # (Auto) Lymph # (Auto) Griggs # (Auto) Eos # (Auto) Baso # (Auto) WBC Differential Differential Comment PT 11.4 INR 1.1 APTT 24.7 Sodium Potassium Chloride Carbon Dioxide Anion Gap BUN Creatinine Estimated GFR Random Glucose Calcium Magnesium Total Bilirubin AST ALT Alkaline Phosphatase Ammonia Troponin I Total Protein Albumin Lipase Blood Type A Positive Blood Type Recheck Not needed Antibody Screen Negative - Imaging Impressions Abdomen/Pelvis CT 05/12/18 00:56 CONCLUSION: 1. No obstruction or acute inflammatory changes are seen of the gastrointestinal tract. Considerable stool throughout the colon, especially the rectum. There is mild diverticulosis of the colon without perceptible diverticulitis. 2. Questionable ill-defined mass of the pancreatic tail. There is also diffuse pancreatic duct dilatation of uncertain etiology. Multiphasic MRI of the abdomen with and without contrast recommended. 3. A few scattered small, benign-appearing cysts of the liver. Relatively large but benign-appearing cysts of each kidney. 4. Bladder stones and suspected mild cystitis in the proper clinical setting. Please correlate clinically and with urinalysis. 5. Moderate to large hiatal hernia. Chest X-Ray 05/12/18 00:56 CONCLUSION: Mild bibasilar atelectasis. Hiatal hernia. <Deon Bustos - Last Filed: 05/12/18 21:27> Assessment and Plan - Plan Seen and examined with BACKEND PYTHON DEVELOPER, CT reviewed with pt. MRCP and colonoscopy recommended. Will follow, thank you The exam, history, and the medical decision-making described in the above note were completed with the assistance of the mid-level provider. I reviewed and agree with the findings presented. I attest that I had a [id number] encounter with the patient on the same day, and personally performed and documented my assessment and findings in the medical record. <Karla Oliver - Last Filed: 05/12/18 15:48> - Plan - Acute GI bleed- presented with acute onset of rectal bleeding started last night. This is described as bloody clots, significant amount, she had few episodes, but none since admission. Denies nausea, vomiting, abd pain, melena, constipation or diarrhea. On arrival, Hemoglobin 9.5, Hemoccult + on exam. CT Abdomen/Pelvis considerable stool throughout the colon especially the rectum, possible ill-defined mass pancreatic tail with recommendation for MRI of the abdomen renal cysts, bladder stone, possible mild cystitis. Last colonoscopy was 7 yrs ago by report. Pt denies previous hx of pancreatic issues, denies alcohol intake. States has been on Cipro for UTI. PT not on blood thinner. - possible ill-defined mass pancreatic tail on CT- MRI ordered by attending, LFTs wnl, lipase wnl - PMH of Anxiety, HTN, per attending Plan: - Clears - Colonoscopy in the am - Consents - Golytely today - NPO mn - Await MRI - Consider EUS, could be done OP basis - Will order tumor markers - Monitor hh - Transfuse as needed - Notify Gi for active bleed - Supportive care - Pt seen and examined by Dr. Oliver and myself and this note is written on his behalf. <Deon Bustos - Last Filed: 05/12/18 21:27>
[2018-05-12] MEDS: Sertraline 50 MG Tablet PO SCH (11:15)
[2018-05-12] MEDS: amLODIPine 5 MG Tablet PO SCH (11:17)
[2018-05-12] MEDS: Senna/Docusate Sodium 8.6/50 MG Tablet PO SCH ×2 (11:18→20:36)
--- NOTE | 2018-05-12 11:59 | ECG ---
Date Performed: 05/12/2018 Time Performed: 00:32:05 PTAGE: 77 years EKG: Sinus rhythm NORMAL ECG Since the PREVIOUS TRACING , no significant change noted DOCTOR: Lina Gonzalez Interpretating Date/Time 05/12/2018 11:58:59
[2018-05-12] MEDS ORDERED: Gadobutrol PF 7.5 MMOL/7.5 ML Vial (for RAD) IV.SIG ONE (14:52)
--- NOTE | 2018-05-12 15:19 | MR ---
EXAM DATE: 05/12/2018 2:51 PM EDT AGE/SEX: 77 years / Female INDICATIONS: Abdominal pain. Abnormal CT scan of the pancreas. CLINICAL DATA: This is the patient's subsequent encounter. Patient reports that signs and symptoms h ave been present for 2 days and indicates a pain score of 4/10. MEDICAL/SURGICAL HISTORY: Hypertension. Hysterectomy. COMPARISON: No prior exams available for comparison. TECHNIQUE: Multiplanar, multisequence images of the abdomen were obtained prior to and following adm inistration of 6.5 ml Gadavist (gadobutrol) contrast as a single exam dose with dynamic multiphase te [place]. Minimal motion artifact was evident. FINDINGS: Liver: The liver is free of focal defects. Small cyst is present on the cortex. There is no ductal di latation. Gallbladder: Single polyp seen in fundus of the gallbladder. Spleen: The spleen is unremarkable. Pancreas: There is prominence to the pancreatic duct from tail to ampulla. There is mild prominence u ncinate process. I do not see a focal mass. Adrenals: The adrenal glands appear normal. Kidneys: Symmetrical function with 4.5 cm cyst right kidney and large 5 similar parapelvic cyst left kidney. There is no ascites or adenopathy. Retroperitoneum: There is no retroperitoneal adenopathy. CONCLUSION: 1. Dilatation of the pancreatic duct from tail to ampulla with mild prominence uncinate process with out focal mass. 2. Bilateral renal cyst 3. No adenopathy 4. No hepatic mass. 5. Endoscopic ultrasound could be used to further evaluate the pancreas. Electronically signed by: Jaswinder Moreno MD 05/12/2018 3:18 PM EDT
[2018-05-12] MEDS ORDERED: PEG 3350/E-Lyte Soln 4000 ML Bottle PO ONE (16:00)
[2018-05-12 17:12] LABS: Hemoglobin A1c 5.9 % (4.3-6.0)
[2018-05-12] MEDS: ALPRAZolam 0.5 MG Tablet PO PRN (20:43)
[2018-05-13] MEDS: Sod Chloride 0.9% Inj 1,000 ML IV.CONT SCH ×3 (02:37→23:15)
[2018-05-13] MEDS: Pantoprazole Inj 80 MG in Sodium Chlor 0.9% Inj 100 ML IV.CONT SCH (04:17)
[2018-05-13] MEDS ORDERED: Phenylephrine/NS 1000 MCG/10ML Syringe IV.PUSH ONE (12:00)
[2018-05-13] MEDS ORDERED: Lidocaine PF 1% Inj 5 ML Syringe INFILTRATN ONE (12:00)
[2018-05-13 13:08] LABS: Baso # (Auto) 0.1 th/mm3 (0.0-0.2); Baso % (Auto) 0.9 % (0.0-2.0); Eos # (Auto) 0.4 th/mm3 (0.0-0.4); Eos % (Auto) 6.8 % (0.0-4.0); Hematocrit 23.5 % (35.0-46.0); Hemoglobin 7.8 gm/dL (11.6-15.3); Lymph # (Auto) 2.3 th/mm3 (1.0-4.8); Lymph % (Auto) 36.7 % (9.0-44.0); Mean Corpuscular Hemoglobin 29.3 pg (27.0-34.0); Mean Corpuscular Volume 88.8 fL (80.0-100.0); Mono # (Auto) 0.7 th/mm3 (0.0-0.9); Neut # (Auto) 2.8 th/mm3 (1.8-7.7); Neut % (Auto) 44.6 % (16.0-70.0); Platelet Count 255 th/mm3 (150-450); Red Blood Count 2.65 mil/mm3 (4.00-5.30); Red Cell Distribution Width 15.2 % (11.6-17.2); White Blood Count 6.2 th/mm3 (4.0-11.0)
[2018-05-13 13:25] LABS: Alanine Aminotransferase 14 U/L (10-53); Albumin 2.6 g/dL (3.4-5.0); Amylase 26 U/L (25-115); Anion Gap 10 meq/L (5-15); Aspartate Aminotransferase 11 U/L (15-37); Blood Urea Nitrogen 10 mg/dL (7-18); Calcium 7.3 mg/dL (8.5-10.1); Carbon Dioxide 23.8 meq/L (21.0-32.0); Chloride 112 meq/L (98-107); Glomerular Filtration Rate Greater Than 89 mL/min (>89); Glucose,Random 91 mg/dL (74-106); Magnesium 2.1 mg/dL (1.5-2.5); Phosphorus 2.5 mg/dL (2.5-4.9); Potassium 3.4 meq/L (3.5-5.1); Sodium 146 meq/L (136-145)
[2018-05-13 13:27] LABS: Alkaline Phosphatase 46 U/L (45-117); Total Protein 5.8 g/dL (6.4-8.2)
[2018-05-13] MEDS ORDERED: Acetaminophen 325 MG Tablet PO PRN (14:10)
--- NOTE | 2018-05-13 14:28 | P.PNIM ---
Subjective Interval history: This is a 77-year-old female with a PMH of Anxiety, Diverticulosis, h/o GI Bleed and HTN who was brought to the ER by EMS for acute onset of rectal bleeding starting earlier this evening. Notes associated lightheadedness/ dizziness. Upon EMS arrival, noted to be hypotensive w/ BP 70's, good response to IVF, BP 140's while in ER. Denies nausea, vomiting or diarrhea. On arrival , BP 143/75, HR 81, O2 sat 98% on RA, Afebrile. Hemoglobin 9.5, no previous labs for comparison. INR 1.1. Chemistry unremarkable except for GFR 58. Troponin negative. CT Abdomen/Pelvis considerable stool throughout the colon especially the rectum, possible ill-defined mass pancreatic tail with recommendation for MRI of the abdomen renal cysts, bladder stone, possible mild cystitis. Hemoccult + on exam. Of note, pt relays that she wishes to be a DNR , is agreeable to transfusion in needed, but does not want resuscitation or intubation. 8 to go for MRI OF ABDOMEN TODAY GI HAS BEEN CONSULTED IS A DNR ?PANCREATIC MASS TO HAVE MRI--HAD MRI ANXIETY- NEEDS ATIVAN FOR MRI TO HAVE COLONOSCOPY TOMORROW 8 HAD COLONOSCOPY--POOR PREP HEMOGLOBIN DROPPED WILL TRANSFUSE 2 UNITS PRBC AM LABS REFUSING TO PREP FOR COLONOSCOPY TOMORROW MAKE FULL ADMISSION Physical Exam Vital signs: Vital Signs 05/12/18 16:00 05/12/18 19:50 05/12/18 22:44 Temperature 98.1 F Pulse Rate 86 82 Respiratory Rate 12 15 Blood Pressure 122/69 117/67 Pulse Oximetry 96 98 94 L 05/13/18 04:32 05/13/18 07:41 05/13/18 12:00 Temperature 98.3 F 98.2 F 98.0 F Pulse Rate 86 105 H 83 Respiratory Rate 16 20 20 Blood Pressure 125/60 115/70 136/74 Pulse Oximetry 94 L 97 99 Intake & Output 05/12/18 05/13/18 05/13/18 18:59 06:59 18:59 Intake Total 2149 / 0 1100 / 1100 Balance 215 / 0 1100 / 1100 Intake: IV 2149 / 2149 1100 / 1100 Protonix Inj 80 MG In NS Inj 100 / 100 100 / 100 100 ML @ 10 mls/hr IV.CONT CONT SATURNINO Rx#:[id number] NS Inj 1,000 ML @ 100 mls/hr IV 1999 / 1999 1000 / 1000 .CONT .Q10H SATURNINO Rx#:[id number] Other: # Voids 6 5 1 # Urine Diapers 3 3 Date of Last Bowel Movement 05/12/18 Narrative: GENERAL: Very pleasant elderly white female in no acute distress, ambulating to and from bathroom without difficulty. HEENT: PERRLA, EOMI. No scleral icterus or conjunctival pallor. No lid lag or facial droop. CARDIOVASCULAR: Regular rate and rhythm. No obvious murmurs to auscultation. No chest tenderness to palpation. RESPIRATORY: No obvious rhonchi or wheezing. Clear to auscultation. Breath sounds equal bilaterally. GASTROINTESTINAL: Abdomen soft, non-tender, nondistended. BS normal. MUSCULOSKELETAL: Extremities without clubbing, cyanosis, or edema. No obvious deformities. NEUROLOGICAL: Awake, alert and oriented x4. No focal neurologic deficits. Moving both upper and lower extremities spontaneously. Results - Labs CBC & Chem 7: 05/13/18 12:53 05/13/18 12:53 Laboratory Results - last 24 hr 05/12/18 05/13/18 05/13/18 01:10 12:53 12:53 WBC 6.2 RBC 2.65 L Hgb 7.8 L Hct 23.5 L MCV 88.8 MCH 29.3 MCHC 33.0 RDW 15.2 Plt Count 255 MPV 8.0 Neut % (Auto) 44.6 Lymph % (Auto) 36.7 [place] % (Auto) 11.0 H Eos % (Auto) 6.8 H Baso % (Auto) 0.9 Neut # (Auto) 2.8 Lymph # (Auto) 2.3 [place] # (Auto) 0.7 Eos # (Auto) 0.4 Baso # (Auto) 0.1 WBC Differential . Differential Comment Auto diff final Sodium 146 H Potassium 3.4 L Chloride 112 H Carbon Dioxide 23.8 Anion Gap 10 BUN 10 Creatinine 0.59 Estimated GFR Greater than 89 Random Glucose 91 Hemoglobin A1c 5.9 Calcium 7.3 L* Prot Corrected Calcium 8.0 L Phosphorus 2.5 Magnesium 2.1 Total Bilirubin 0.3 AST 11 L ALT 14 Alkaline Phosphatase 46 Ammonia Total Protein 5.8 L Albumin 2.6 L Amylase 26 CA 19-9 Antigen MTS Gel Crossmatch 08/28/18 08/28/18 08/28/18 12:53 12:53 14:20 WBC RBC Hgb Hct MCV MCH MCHC RDW Plt Count MPV Neut % (Auto) Lymph % (Auto) [place] % (Auto) Eos % (Auto) Baso % (Auto) Neut # (Auto) Lymph # (Auto) [place] # (Auto) Eos # (Auto) Baso # (Auto) WBC Differential Differential Comment Sodium Potassium Chloride Carbon Dioxide Anion Gap BUN Creatinine Estimated GFR Random Glucose Hemoglobin A1c Calcium Prot Corrected Calcium Phosphorus Magnesium Total Bilirubin AST ALT Alkaline Phosphatase Ammonia 19 Total Protein Albumin Amylase CA 19-9 Antigen 31.0 MTS Gel Crossmatch See Detail - Imaging Impressions Abdomen MRI 05/12/18 00:00 CONCLUSION: 1. Dilatation of the pancreatic duct from tail to ampulla with mild prominence uncinate process without focal mass. 2. Bilateral renal cyst 3. No adenopathy 4. No hepatic mass. 5. Endoscopic ultrasound could be used to further evaluate the pancreas. Assessment and Plan - Assessment (1) GI bleed Code(s): K92.2 - Gastrointestinal hemorrhage, unspecified Status: Acute (2) Anemia Code(s): D64.9 - Anemia, unspecified Status: Acute (3) Pancreatic mass Code(s): K86.9 - Disease of pancreas, unspecified Status: Acute (4) DNR (do not resuscitate) Code(s): Z66 - Do not resuscitate Status: Acute - Plan 1. GI Bleed: acute onset rectal bleeding, h/o GI Bleed from Diverticulosis, Hemoccult + on exam, currently on Protonix gtt, NPO, IVF, GI Consult for further eval/intervention. 2. Anemia: Hgb 9.3, no previous labs for comparison, recheck Hgb/Hct, transfuse as needed. - DROPPED AGAIN WILL TRANSFUSE 2UNITS PRBC 3. Pancreatic Mass: CT Abd/Pelvis w/ questionable pancreatic mass, recommendation for MRI, will obtain MRI Abd for further evaluation. --MRI SHOWS ABNORMAL PANCREAS 4. DNR: Code Status confirmed with patient, agreeable to transfusion if needed , however does not want intubation/resuscitation. 5. DVT Prophylaxis: Pharmacologic contraindication in light of GI Bleed 6. Social work for DC planning as needed. ANXIETY WILL GIVE ATIVAN PRIOR TO MRI -CONTINUE ALPRAZOLAM AND SERTRALINE HYPERTENSION CONTINUE AMLODIPINE ANEMIA WILL TRANSFUSE 2 UNITS PRBC AM LABS DW RN AND PT AND CM Code Status: DNR Discussed Condition With: RN AND PT AND CM Discharge Planning: GI CLEARANCE
[2018-05-13] MEDS ORDERED: Sodium Chlor 0.9% Inj 250 ML IV.SIG SCH (15:00)
[2018-05-13] MEDS: Senna/Docusate Sodium 8.6/50 MG Tablet PO SCH ×2 (15:05→20:20)
[2018-05-13] MEDS: amLODIPine 5 MG Tablet PO SCH (15:06)
[2018-05-13] MEDS: Sertraline 50 MG Tablet PO SCH (15:07)
--- NOTE | 2018-05-13 15:10 | GIPROC ---
[facility] [address] [facility]. [facility] [place], [address] COLONOSCOPY PROCEDURE REPORT EXAM DATE: 05/13/2018 PATIENT NAME: Nadine Byrnes MR #: [id number] BIRTHDATE: 1940 ENDOSCOPIST: Karla Oliver MD ORDER #: [id number] FRONT WORKER: Nati Whaley and Liz Lu STATUS: inpatient INDICATIONS: The patient is a 77 yr old female here for a colonoscopy due to hematochezia and iron deficiency anemia PROCEDURE PERFORMED: Colonoscopy, diagnostic MEDICATIONS: None and Per Anesthesia. PREP QUALITY: The [place] Bowel Prep Score was Right colon 1, Mid colon 1, and Left colon 1. Total = 3. PREP TYPE:GoLytely ESTIMATED BLOOD LOSS: None CONSENT: The patient understands the risks and benefits of the procedure and understands that these risks include, but are not limited to: sedation, allergic reaction, infection, perforation and/or bleeding. Alternative means of evaluation and treatment include, among others: physical exam, x-rays, and/or surgical intervention. The patient elects to proceed with this endoscopic procedure. medical equipment was checked for proper function. Hand hygiene and appropriate measures for infection prevention was taken. After the risks, benefits and alternatives of the procedure were thoroughly explained, Informed consent was verified, confirmed and timeout was successfully executed by the treatment team. A digital exam revealed external hemorrhoids The Pentax [id number] endoscope was introduced through the anus and advanced to the cecum, which was identified by both the appendix and ileocecal valve. The instrument was then slowly withdrawn as the colon was fully examined. COLON FINDINGS: Severe diverticulosis was noted throughout the entire examined colon. No bleeding was noted from the diverticulosis. Very poor prep with blood mixed with stool throughout the colon. No active bleeding seen. Retroflexed views revealed internal hemorrhoids and Retroflexed views revealed medium internal hemorrhoids The scope was then completely withdrawn from the patient and the procedure terminated. PROCEDURE WITHDRAWAL TIME:8minutes ADVERSE EVENTS: There were no complications. IMPRESSIONS: 1. Severe diverticulosis was noted throughout the entire examined colon 2. Very poor prep with blood mixed with stool throughout the colon. No active bleeding seen 3. Retroflexed views revealed internal hemorrhoids 4. Retroflexed views revealed medium internal hemorrhoids 5. Revealed external hemorrhoids RECOMMENDATIONS: 1. Continue surveillance 2. Bleeding scan if further bleeding. RECALL: Return 1 day Colonoscopy Karla Oliver MD eSigned: Karla Oliver MD 05/13/2018 11:22 AM cc: PATIENT NAME: Nadine Byrnes MR#: [id number]
[2018-05-13] MEDS ORDERED: Magnesium Citrate Liq 300 ML Bottle PO ONE (16:00)
[2018-05-13] MEDS: ALPRAZolam 0.5 MG Tablet PO PRN (16:30)
[2018-05-14 00:09] LABS: Hematocrit 30.2 % (35.0-46.0); Hemoglobin 10.4 gm/dL (11.6-15.3)
[2018-05-14] MEDS ORDERED: Sod Phosphate/Sod Biphosphate (Adult) Enema 133 ML Bottle RECTAL ONE (08:30)
[2018-05-14] MEDS: amLODIPine 5 MG Tablet PO SCH (08:33)
[2018-05-14] MEDS: Sertraline 50 MG Tablet PO SCH (08:33)
[2018-05-14] MEDS: ALPRAZolam 0.5 MG Tablet PO PRN ×2 (08:34→20:19)
[2018-05-14] MEDS: Senna/Docusate Sodium 8.6/50 MG Tablet PO SCH ×2 (08:35→20:19)
[2018-05-14 08:56] LABS: Baso # (Auto) 0.1 th/mm3 (0.0-0.2); Baso % (Auto) 0.9 % (0.0-2.0); Eos # (Auto) 0.6 th/mm3 (0.0-0.4); Eos % (Auto) 8.8 % (0.0-4.0); Hematocrit 27.4 % (35.0-46.0); Hemoglobin 9.5 gm/dL (11.6-15.3); Lymph # (Auto) 2.4 th/mm3 (1.0-4.8); Lymph % (Auto) 35.3 % (9.0-44.0); Mean Corpuscular HGB Conc 34.7 % (32.0-36.0); Mean Corpuscular Volume 86.4 fL (80.0-100.0); Mean Platelet Volume 8.6 fL (7.0-11.0); Mono # (Auto) 0.9 th/mm3 (0.0-0.9); Mono % (Auto) 12.7 % (0.0-8.0); Neut # (Auto) 2.9 th/mm3 (1.8-7.7); Neut % (Auto) 42.3 % (16.0-70.0); Platelet Count 240 th/mm3 (150-450); Red Blood Count 3.17 mil/mm3 (4.00-5.30); Red Cell Distribution Width 14.8 % (11.6-17.2); White Blood Count 6.8 th/mm3 (4.0-11.0)
[2018-05-14 09:21] LABS: Albumin 2.6 g/dL (3.4-5.0); Anion Gap 10 meq/L (5-15); Aspartate Aminotransferase 14 U/L (15-37); Blood Urea Nitrogen 7 mg/dL (7-18); Calcium 7.6 mg/dL (8.5-10.1); Carbon Dioxide 25.9 meq/L (21.0-32.0); Chloride 109 meq/L (98-107); Glomerular Filtration Rate 79 mL/min (>89); Glucose,Random 94 mg/dL (74-106); Sodium 145 meq/L (136-145)
[2018-05-14 09:23] LABS: Alanine Aminotransferase 12 U/L (10-53); Phosphorus 2.6 mg/dL (2.5-4.9)
[2018-05-14 09:26] LABS: Alkaline Phosphatase 45 U/L (45-117); Total Protein 5.6 g/dL (6.4-8.2)
--- NOTE | 2018-05-14 10:10 | P.PNIM ---
Subjective Interval history: This is a 77-year-old female with a PMH of Anxiety, Diverticulosis, h/o GI Bleed and HTN who was brought to the ER by EMS for acute onset of rectal bleeding starting earlier this evening. Notes associated lightheadedness/ dizziness. Upon EMS arrival, noted to be hypotensive w/ BP 70's, good response to IVF, BP 140's while in ER. Denies nausea, vomiting or diarrhea. On arrival , BP 143/75, HR 81, O2 sat 98% on RA, Afebrile. Hemoglobin 9.5, no previous labs for comparison. INR 1.1. Chemistry unremarkable except for GFR 58. Troponin negative. CT Abdomen/Pelvis considerable stool throughout the colon especially the rectum, possible ill-defined mass pancreatic tail with recommendation for MRI of the abdomen renal cysts, bladder stone, possible mild cystitis. Hemoccult + on exam. Of note, pt relays that she wishes to be a DNR , is agreeable to transfusion in needed, but does not want resuscitation or intubation. 8 to go for MRI OF ABDOMEN TODAY GI HAS BEEN CONSULTED IS A DNR ?PANCREATIC MASS TO HAVE MRI--HAD MRI ANXIETY- NEEDS ATIVAN FOR MRI TO HAVE COLONOSCOPY TOMORROW 8 HAD COLONOSCOPY--POOR PREP HEMOGLOBIN DROPPED WILL TRANSFUSE 2 UNITS PRBC AM LABS REFUSING TO PREP FOR COLONOSCOPY TOMORROW MAKE FULL ADMISSION 05-14 HAD TRANSFUSION LAST NIGHT HGB WAS 10.4 NOW 9.5 WILL RECHECK AT NOON HYPOKALEMIA WILL REPLACE WITH PO POTASSIUM AM LABS PT AND OT WILL NEED HHC AT HOME LIVES ALONE REPEAT COLONOSCOPY TOMORROW Physical Exam Vital signs: Vital Signs 05/13/18 12:00 05/13/18 15:14 05/13/18 15:48 Temperature 98.0 F 98.7 F 98.2 F Pulse Rate 83 89 86 Respiratory Rate 20 20 16 Blood Pressure 136/74 111/45 L 98/59 L Pulse Oximetry 99 97 97 05/13/18 16:08 05/13/18 16:26 05/13/18 19:25 Temperature 98.3 F 98.3 F 98.2 F Pulse Rate 83 81 86 Respiratory Rate 18 18 17 Blood Pressure 98/56 L 93/62 L 128/69 Pulse Oximetry 97 99 05/13/18 19:46 05/13/18 20:00 05/13/18 22:14 Temperature 97.1 F L 98.4 F 98.3 F Pulse Rate 80 80 79 Respiratory Rate 17 17 18 Blood Pressure 108/66 96/55 L 123/66 Pulse Oximetry 97 96 98 05/13/18 23:42 05/13/18 23:51 05/14/18 04:00 Temperature 98.2 F 98.5 F Pulse Rate 85 76 89 Respiratory Rate 16 17 Blood Pressure 117/73 123/78 Pulse Oximetry 98 94 L 05/14/18 07:50 05/14/18 09:00 Temperature 98.5 F Pulse Rate 81 89 Respiratory Rate 16 Blood Pressure 122/66 Pulse Oximetry 95 Intake & Output 05/13/18 05/14/18 05/14/18 18:59 06:59 18:59 Intake Total 650 / 650 1050 / 1050 240 / 240 Balance 650 / 650 1050 / 1050 240 / 240 Intake: IV 650 / 650 250 / 250 Protonix Inj 80 MG In NS Inj 50 / 50 100 ML @ 10 mls/hr IV.CONT CONT SATURNINO Rx#:[id number] NS Inj 1,000 ML @ 100 mls/hr IV 600 / 600 .CONT .Q10H SATURNINO Rx#:[id number] NS Inj 250 ML @ 15 mls/hr IV. 250 / 250 SIG ONCE SATURNINO Rx#:[id number] Oral 240 / 240 Intake (Blood Product) Amt 0 / 0 800 / 800 Rbc As-3 Leukoreduced Unit 400 / 400 [id number] Rbc As-3 Leukoreduced Unit 0 / 0 400 / 400 [id number] Other: # Voids 1 3 Date of Last Bowel Movement 05/13/18 05/13/18 05/13/18 Narrative: GENERAL: Very pleasant elderly white female in no acute distress, ambulating to and from bathroom without difficulty. HEENT: PERRLA, EOMI. No scleral icterus or conjunctival pallor. No lid lag or facial droop. CARDIOVASCULAR: Regular rate and rhythm. No obvious murmurs to auscultation. No chest tenderness to palpation. RESPIRATORY: No obvious rhonchi or wheezing. Clear to auscultation. Breath sounds equal bilaterally. GASTROINTESTINAL: Abdomen soft, non-tender, nondistended. BS normal. MUSCULOSKELETAL: Extremities without clubbing, cyanosis, or edema. No obvious deformities. NEUROLOGICAL: Awake, alert and oriented x4. No focal neurologic deficits. Moving both upper and lower extremities spontaneously. Results - Labs CBC & Chem 7: 05/14/18 12:34 05/14/18 07:10 Laboratory Results - last 24 hr 05/13/18 05/13/18 05/13/18 12:53 12:53 12:53 WBC 6.2 RBC 2.65 L Hgb 7.8 L Hct 23.5 L MCV 88.8 MCH 29.3 MCHC 33.0 RDW 15.2 Plt Count 255 MPV 8.0 Neut % (Auto) 44.6 Lymph % (Auto) 36.7 [place] % (Auto) 11.0 H Eos % (Auto) 6.8 H Baso % (Auto) 0.9 Neut # (Auto) 2.8 Lymph # (Auto) 2.3 [place] # (Auto) 0.7 Eos # (Auto) 0.4 Baso # (Auto) 0.1 WBC Differential . Differential Comment Auto diff final Sodium 146 H Potassium 3.4 L Chloride 112 H Carbon Dioxide 23.8 Anion Gap 10 BUN 10 Creatinine 0.59 Estimated GFR Greater than 89 Random Glucose 91 Calcium 7.3 L* Prot Corrected Calcium 8.0 L Phosphorus 2.5 Magnesium 2.1 Total Bilirubin 0.3 AST 11 L ALT 14 Alkaline Phosphatase 46 Ammonia 19 Total Protein 5.8 L Albumin 2.6 L Amylase 26 CA 19-9 Antigen MTS Gel Crossmatch 05/13/18 05/13/18 05/13/18 12:53 14:20 23:52 WBC RBC Hgb 10.4 L D Hct 30.2 L MCV MCH MCHC RDW Plt Count MPV Neut % (Auto) Lymph % (Auto) [place] % (Auto) Eos % (Auto) Baso % (Auto) Neut # (Auto) Lymph # (Auto) [place] # (Auto) Eos # (Auto) Baso # (Auto) WBC Differential Differential Comment Sodium Potassium Chloride Carbon Dioxide Anion Gap BUN Creatinine Estimated GFR Random Glucose Calcium Prot Corrected Calcium Phosphorus Magnesium Total Bilirubin AST ALT Alkaline Phosphatase Ammonia Total Protein Albumin Amylase CA 19-9 Antigen 31.0 MTS Gel Crossmatch See Detail 05/14/18 05/14/18 07:10 07:10 WBC 6.8 RBC 3.17 L Hgb 9.5 L Hct 27.4 L MCV 86.4 MCH 30.0 MCHC 34.7 RDW 14.8 Plt Count 240 MPV 8.6 Neut % (Auto) 42.3 Lymph % (Auto) 35.3 [place] % (Auto) 12.7 H Eos % (Auto) 8.8 H Baso % (Auto) 0.9 Neut # (Auto) 2.9 Lymph # (Auto) 2.4 [place] # (Auto) 0.9 Eos # (Auto) 0.6 H Baso # (Auto) 0.1 WBC Differential . Differential Comment Auto diff final Sodium 145 Potassium 3.0 L Chloride 109 H Carbon Dioxide 25.9 Anion Gap 10 BUN 7 Creatinine 0.71 Estimated GFR 79 L Random Glucose 94 Calcium 7.6 L Prot Corrected Calcium Phosphorus 2.6 Magnesium 2.0 Total Bilirubin 0.6 AST 14 L ALT 12 Alkaline Phosphatase 45 Ammonia Total Protein 5.6 L Albumin 2.6 L Amylase CA 19-9 Antigen MTS Gel Crossmatch - Procedures COLONOSCOPY 8 SUSPECTED DIVERTICULAR BLEEDING-POOR BOWEL PREP INTERNAL AND EXTERNAL HEMORRHOIDS Assessment and Plan - Assessment (1) GI bleed Code(s): K92.2 - Gastrointestinal hemorrhage, unspecified Status: Acute (2) Anemia Code(s): D64.9 - Anemia, unspecified Status: Acute (3) Pancreatic mass Code(s): K86.9 - Disease of pancreas, unspecified Status: Acute (4) DNR (do not resuscitate) Code(s): Z66 - Do not resuscitate Status: Acute - Plan 1. GI Bleed: acute onset rectal bleeding, h/o GI Bleed from Diverticulosis, Hemoccult + on exam, currently on Protonix gtt, NPO, IVF, GI Consult for further eval/intervention. --SUSPECTED DIVERTICULAR BLEEDING- 2. Anemia: Hgb 9.3, no previous labs for comparison, recheck Hgb/Hct, transfuse as needed. - DROPPED AGAIN WILL TRANSFUSE 2UNITS PRBC- HGB DROPPED AGAIN WILL RECHECK LATER TODAY 3. Pancreatic Mass: CT Abd/Pelvis w/ questionable pancreatic mass, recommendation for MRI, will obtain MRI Abd for further evaluation. --MRI SHOWS ABNORMAL PANCREAS 4. DNR: Code Status confirmed with patient, agreeable to transfusion if needed , however does not want intubation/resuscitation. 5. DVT Prophylaxis: Pharmacologic contraindication in light of GI Bleed 6. Social work for DC planning as needed. ANXIETY WILL GIVE ATIVAN PRIOR TO MRI -CONTINUE ALPRAZOLAM AND SERTRALINE HYPERTENSION CONTINUE AMLODIPINE ANEMIA WILL TRANSFUSE 2 UNITS PRBC AM LABS DW RN AND PT AND CM HYPOKALEMIA WILL REPLACE WILL RECHECK HEMOGLOBIN AT NOON WILL NEED HHC AT DC AM LABS DW RN AND PT AND GI FOR COLONOSCOPY TOMORROW Code Status: DNR Discussed Condition With: RN AND PT AND CM Discharge Planning: AFTER BLEEDING STABILIZES
--- NOTE | 2018-05-14 10:11 | P.DCO ---
- Physical Therapy Order: Evaluate and treat, Improve ambulation, Strength and gait training - Occupational Therapy Order: Evaluate and treat, Improve ADL, Gross motor coordination, Fine motor coordination - Home Health Nursing Order: Signs/symptoms of disease process, Nursing assessment with vital signs, Telehealth - Home Health Aide Order: To assist in: Bathing and personal care, contract administration specialist and meal prep - Certification I have seen patient Nadine Byrnes on 05/14/18. My clinical findings support the need for the requested home health care services because: Limited mobility due to disease progression, Deconditioned with increased weakness, Limited ability to care for self, High risk of falls I certify that my clinical findings support that this patient is homebound because: Unsteady gait/balance, Unsafe to leave home unassisted
[2018-05-14] MEDS ORDERED: Potassium Bicarbonate 25 MEQ Effervescent Tablet PO ONE (12:30)
[2018-05-14 12:46] LABS: Baso # (Auto) 0.1 th/mm3 (0.0-0.2); Eos # (Auto) 0.5 th/mm3 (0.0-0.4); Hematocrit 30.1 % (35.0-46.0); Hemoglobin 10.2 gm/dL (11.6-15.3); Mean Corpuscular HGB Conc 33.9 % (32.0-36.0); Mean Corpuscular Hemoglobin 29.9 pg (27.0-34.0); Mean Corpuscular Volume 88.1 fL (80.0-100.0); Mean Platelet Volume 8.3 fL (7.0-11.0); Mono # (Auto) 1.1 th/mm3 (0.0-0.9); Mono % (Auto) 14.2 % (0.0-8.0); Neut % (Auto) 38.8 % (16.0-70.0); Platelet Count 277 th/mm3 (150-450); Red Blood Count 3.42 mil/mm3 (4.00-5.30); White Blood Count 7.7 th/mm3 (4.0-11.0)
--- NOTE | 2018-05-14 15:18 | P.PNGI ---
Subjective Interval history: Pt resting in bed. Pt had some stool after colonoscopy but none since. Denies nausea, vomiting, abdominal pain. <Ashley Coffman - Last Filed: 05/14/18 15:39> Physical Exam Vital signs: Vital Signs 05/13/18 15:14 05/13/18 15:48 05/13/18 16:08 Temperature 98.7 F 98.2 F 98.3 F Pulse Rate 89 86 83 Respiratory Rate 20 16 18 Blood Pressure 111/45 L 98/59 L 98/56 L Pulse Oximetry 97 97 05/13/18 16:26 05/13/18 19:25 05/13/18 19:46 Temperature 98.3 F 98.2 F 97.1 F L Pulse Rate 81 86 80 Respiratory Rate 18 17 17 Blood Pressure 93/62 L 128/69 108/66 Pulse Oximetry 97 99 97 05/13/18 20:00 05/13/18 22:14 05/13/18 23:42 Temperature 98.4 F 98.3 F 98.2 F Pulse Rate 80 79 85 Respiratory Rate 17 18 16 Blood Pressure 96/55 L 123/66 117/73 Pulse Oximetry 96 98 98 05/13/18 23:51 05/14/18 04:00 05/14/18 07:50 Temperature 98.5 F 98.5 F Pulse Rate 76 89 81 Respiratory Rate 17 16 Blood Pressure 123/78 122/66 Pulse Oximetry 94 L 95 05/14/18 09:00 05/14/18 12:00 Temperature 98.5 F Pulse Rate 89 84 Respiratory Rate 16 Blood Pressure 120/60 Pulse Oximetry 95 Intake & Output 05/13/18 05/14/18 05/14/18 18:59 06:59 18:59 Intake Total 650 / 650 1050 / 1050 240 / 240 Balance 650 / 650 1050 / 1050 240 / 240 Weight 59.6 kg Intake: IV 650 / 650 250 / 250 Protonix Inj 80 MG In NS Inj 50 / 50 100 ML @ 10 mls/hr IV.CONT CONT [facility] Rx#:[id number] NS Inj 1,000 ML @ 100 mls/hr IV 600 / 600 .CONT .Q10H [facility] Rx#:[id number] NS Inj 250 ML @ 15 mls/hr IV. 250 / 250 SIG ONCE [facility] Rx#:[id number] Oral 240 / 240 Intake (Blood Product) Amt 0 / 0 800 / 800 Rbc As-3 Leukoreduced Unit 400 / 400 [id number] Rbc As-3 Leukoreduced Unit 0 / 0 400 / 400 [id number] Other: # Voids 1 3 Date of Last Bowel Movement 05/13/18 05/13/18 05/13/18 Weight On Admission 59.6 kg - Constitutional no acute distress - Routine HEENT Exam Head: Present: normocephalic, atraumatic - Routine Respiratory Exam Absent: accessory muscle use - Routine Abdominal Exam Present: soft, normoactive bowel sounds. Absent: tenderness, distended - Routine Skin Exam Present: dry, warm - Routine Neurological Exam Present: alert, oriented X3 <Ashley Coffman - Last Filed: 05/14/18 15:39> Vital signs: Vital Signs 05/13/18 19:25 05/13/18 19:46 05/13/18 20:00 Temperature 98.2 F 97.1 F L 98.4 F Pulse Rate 86 80 80 Respiratory Rate 17 17 17 Blood Pressure 128/69 108/66 96/55 L Pulse Oximetry 99 97 96 05/13/18 22:14 05/13/18 23:42 05/13/18 23:51 Temperature 98.3 F 98.2 F Pulse Rate 79 85 76 Respiratory Rate 18 16 Blood Pressure 123/66 117/73 Pulse Oximetry 98 98 05/14/18 04:00 05/14/18 07:50 05/14/18 09:00 Temperature 98.5 F 98.5 F Pulse Rate 89 81 89 Respiratory Rate 17 16 Blood Pressure 123/78 122/66 Pulse Oximetry 94 L 95 05/14/18 12:00 05/14/18 16:00 Temperature 98.5 F 97.8 F Pulse Rate 84 84 Respiratory Rate 16 16 Blood Pressure 120/60 130/77 Pulse Oximetry 95 97 Intake & Output 05/13/18 05/14/18 05/14/18 18:59 06:59 18:59 Intake Total 650 / 650 1050 / 1050 240 / 240 Balance 650 / 650 1050 / 1050 240 / 240 Weight 59.6 kg Intake: IV 650 / 650 250 / 250 Protonix Inj 80 MG In NS Inj 50 / 50 100 ML @ 10 mls/hr IV.CONT CONT [facility] Rx#:[id number] NS Inj 1,000 ML @ 100 mls/hr IV 600 / 600 .CONT .Q10H [facility] Rx#:[id number] NS Inj 250 ML @ 15 mls/hr IV. 250 / 250 SIG ONCE [facility] Rx#:[id number] Oral 240 / 240 Intake (Blood Product) Amt 0 / 0 800 / 800 Rbc As-3 Leukoreduced Unit 400 / 400 [id number] Rbc As-3 Leukoreduced Unit 0 / 0 400 / 400 [id number] Other: # Voids 1 3 Date of Last Bowel Movement 05/13/18 05/13/18 05/13/18 Weight On Admission 59.6 kg <Karla Oliver - Last Filed: 05/14/18 17:25> Results - Labs CBC & Chem 7: 05/14/18 12:34 05/14/18 07:10 Laboratory Results - last 24 hr 05/13/18 05/13/18 05/14/18 14:20 23:52 07:10 WBC 6.8 RBC 3.17 L Hgb 10.4 L D 9.5 L Hct 30.2 L 27.4 L MCV 86.4 MCH 30.0 MCHC 34.7 RDW 14.8 Plt Count 240 MPV 8.6 Neut % (Auto) 42.3 Lymph % (Auto) 35.3 [place] % (Auto) 12.7 H Eos % (Auto) 8.8 H Baso % (Auto) 0.9 Neut # (Auto) 2.9 Lymph # (Auto) 2.4 [place] # (Auto) 0.9 Eos # (Auto) 0.6 H Baso # (Auto) 0.1 WBC Differential . Differential Comment Auto diff final Sodium Potassium Chloride Carbon Dioxide Anion Gap BUN Creatinine Estimated GFR Random Glucose Calcium Phosphorus Magnesium Total Bilirubin AST ALT Alkaline Phosphatase Total Protein Albumin MTS Gel Crossmatch See Detail 05/14/18 05/14/18 07:10 12:34 WBC 7.7 RBC 3.42 L Hgb 10.2 L Hct 30.1 L MCV 88.1 MCH 29.9 MCHC 33.9 RDW 15.0 Plt Count 277 MPV 8.3 Neut % (Auto) 38.8 Lymph % (Auto) 39.0 [place] % (Auto) 14.2 H Eos % (Auto) 7.0 H Baso % (Auto) 1.0 Neut # (Auto) 3.0 Lymph # (Auto) 3.0 [place] # (Auto) 1.1 H Eos # (Auto) 0.5 H Baso # (Auto) 0.1 WBC Differential . Differential Comment Auto diff final Sodium 145 Potassium 3.0 L Chloride 109 H Carbon Dioxide 25.9 Anion Gap 10 BUN 7 Creatinine 0.71 Estimated GFR 79 L Random Glucose 94 Calcium 7.6 L Phosphorus 2.6 Magnesium 2.0 Total Bilirubin 0.6 AST 14 L ALT 12 Alkaline Phosphatase 45 Total Protein 5.6 L Albumin 2.6 L MTS Gel Crossmatch - Procedures COLONOSCOPY 8- SUSPECTED DIVERTICULAR BLEEDING-POOR BOWEL PREP INTERNAL AND EXTERNAL HEMORRHOIDS <Ashley Coffman - Last Filed: 05/14/18 15:39> - Labs CBC & Chem 7: 05/14/18 12:34 05/14/18 07:10 Laboratory Results - last 24 hr 05/13/18 05/13/18 05/14/18 14:20 23:52 07:10 WBC 6.8 RBC 3.17 L Hgb 10.4 L D 9.5 L Hct 30.2 L 27.4 L MCV 86.4 MCH 30.0 MCHC 34.7 RDW 14.8 Plt Count 240 MPV 8.6 Neut % (Auto) 42.3 Lymph % (Auto) 35.3 [place] % (Auto) 12.7 H Eos % (Auto) 8.8 H Baso % (Auto) 0.9 Neut # (Auto) 2.9 Lymph # (Auto) 2.4 [place] # (Auto) 0.9 Eos # (Auto) 0.6 H Baso # (Auto) 0.1 WBC Differential . Differential Comment Auto diff final Sodium Potassium Chloride Carbon Dioxide Anion Gap BUN Creatinine Estimated GFR Random Glucose Calcium Phosphorus Magnesium Total Bilirubin AST ALT Alkaline Phosphatase Total Protein Albumin MTS Gel Crossmatch See Detail 05/14/18 05/14/18 07:10 12:34 WBC 7.7 RBC 3.42 L Hgb 10.2 L Hct 30.1 L MCV 88.1 MCH 29.9 MCHC 33.9 RDW 15.0 Plt Count 277 MPV 8.3 Neut % (Auto) 38.8 Lymph % (Auto) 39.0 [place] % (Auto) 14.2 H Eos % (Auto) 7.0 H Baso % (Auto) 1.0 Neut # (Auto) 3.0 Lymph # (Auto) 3.0 [place] # (Auto) 1.1 H Eos # (Auto) 0.5 H Baso # (Auto) 0.1 WBC Differential . Differential Comment Auto diff final Sodium 145 Potassium 3.0 L Chloride 109 H Carbon Dioxide 25.9 Anion Gap 10 BUN 7 Creatinine 0.71 Estimated GFR 79 L Random Glucose 94 Calcium 7.6 L Phosphorus 2.6 Magnesium 2.0 Total Bilirubin 0.6 AST 14 L ALT 12 Alkaline Phosphatase 45 Total Protein 5.6 L Albumin 2.6 L MTS Gel Crossmatch <Karla Oliver - Last Filed: 05/14/18 17:25> Assessment and Plan - Plan - Acute GI bleed- presented with acute onset of rectal bleeding started last night. This is described as bloody clots, significant amount, she had few episodes, but none since admission. Denies nausea, vomiting, abd pain, melena, constipation or diarrhea. On arrival, Hemoglobin 9.5, Hemoccult + on exam. CT Abdomen/Pelvis considerable stool throughout the colon especially the rectum, possible ill-defined mass pancreatic tail with recommendation for MRI of the abdomen renal cysts, bladder stone, possible mild cystitis. Last colonoscopy was 7 yrs ago by report. Pt denies previous hx of pancreatic issues, denies alcohol intake. States has been on Cipro for UTI. PT not on blood thinner. - possible ill-defined mass pancreatic tail on CT- MRI ordered by attending, LFTs wnl, lipase wnl - PMH of Anxiety, HTN, per attending (05/14) S/P colonoscopy yesterday, H/H stable since 2 units of PRBCs, pt had BM after colonoscopy but has not had another BM since. Pt denies nausea, vomiting, abdominal pain. Colonoscopy --> Severe diverticulosis was noted throughout the entire examined colon. Very poor prep with blood mixed with stool throughout the colon. No active bleeding seen. Retroflexed views revealed internal hemorrhoids. Retroflexed views revealed medium internal hemorrhoids. Revealed external hemorrhoids. 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 Bilateral renal cyst. No adenopathy. No hepatic mass. CA 19-9 31 Plan: Repeat colonoscopy tomorrow Obtain consent Clear liquids now Mag Citrate prep NPO after MN SSE x 2 in AM Monitor H/H EUS with biopsy can be done on outpatient basis Further recommendations to follow Pt has been seen and examined by myself and Dr. Oliver and this note is written on his behalf <Ashley Coffman - Last Filed: 05/14/18 15:39> - Plan Seen and examined with SENIOR ADULTS DIRECTOR, now agreeable to repeat colonoscopy. Prep ordered. Colonoscopy tomorrow. Monitor labs. Outpatient EUS withDr Adams. The exam, history, and the medical decision-making described in the above note were completed with the assistance of the mid-level provider. I reviewed and agree with the findings presented. I attest that I had a [id number] encounter with the patient on the same day, and personally performed and documented my assessment and findings in the medical record. <Karla Oliver - Last Filed: 05/14/18 17:25>
[2018-05-14] MEDS: Potassium Bicarbonate 25 MEQ Effervescent Tablet PO SCH (15:20)
[2018-05-14] MEDS ORDERED: Magnesium Citrate Liq 300 ML Bottle PO ONE ×2 (16:00→18:00)
[2018-05-15 00:48] LABS: Hematocrit 29.8 % (35.0-46.0); Hemoglobin 10.2 gm/dL (11.6-15.3)
[2018-05-15 06:19] LABS: Baso # (Auto) 0.1 th/mm3 (0.0-0.2); Baso % (Auto) 1.1 % (0.0-2.0); Eos # (Auto) 0.6 th/mm3 (0.0-0.4); Eos % (Auto) 11.2 % (0.0-4.0); Hematocrit 28.1 % (35.0-46.0); Hemoglobin 9.7 gm/dL (11.6-15.3); Mean Corpuscular HGB Conc 34.7 % (32.0-36.0); Mean Corpuscular Hemoglobin 30.2 pg (27.0-34.0); Mean Corpuscular Volume 87.1 fL (80.0-100.0); Mean Platelet Volume 8.2 fL (7.0-11.0); Mono # (Auto) 0.9 th/mm3 (0.0-0.9); Mono % (Auto) 15.2 % (0.0-8.0); Neut # (Auto) 2.1 th/mm3 (1.8-7.7); Neut % (Auto) 37.5 % (16.0-70.0); Platelet Count 241 th/mm3 (150-450); Red Blood Count 3.22 mil/mm3 (4.00-5.30); Red Cell Distribution Width 14.8 % (11.6-17.2); White Blood Count 5.7 th/mm3 (4.0-11.0)
[2018-05-15 06:20] LABS: Prothrombin Time 10.1 sec (9.8-11.6)
[2018-05-15 07:14] LABS: Alanine Aminotransferase 14 U/L (10-53); Albumin 2.6 g/dL (3.4-5.0); Anion Gap 6 meq/L (5-15); Blood Urea Nitrogen 7 mg/dL (7-18); Carbon Dioxide 27.8 meq/L (21.0-32.0); Chloride 110 meq/L (98-107); Glomerular Filtration Rate Greater Than 89 mL/min (>89); Glucose,Random 96 mg/dL (74-106); Magnesium 2.5 mg/dL (1.5-2.5); Phosphorus 2.3 mg/dL (2.5-4.9); Potassium 3.9 meq/L (3.5-5.1); Sodium 144 meq/L (136-145)
[2018-05-15 08:04] LABS: Alkaline Phosphatase 48 U/L (45-117); Aspartate Aminotransferase 14 U/L (15-37); Total Protein 5.9 g/dL (6.4-8.2)
[2018-05-15] MEDS: Potassium Bicarbonate 25 MEQ Effervescent Tablet PO SCH (09:24)
[2018-05-15] MEDS: amLODIPine 5 MG Tablet PO SCH (09:24)
[2018-05-15] MEDS: Sertraline 50 MG Tablet PO SCH (09:25)
[2018-05-15] MEDS: Senna/Docusate Sodium 8.6/50 MG Tablet PO SCH ×2 (09:25→20:32)
[2018-05-15] MEDS: ALPRAZolam 0.5 MG Tablet PO PRN ×2 (09:25→20:31)
[2018-05-15] MEDS ORDERED: Succinylcholine Inj 100 MG/5 ML Syringe IV.PUSH ONE (12:00)
[2018-05-15] MEDS ORDERED: Phenylephrine/NS 1000 MCG/10ML Syringe IV.PUSH ONE (12:00)
[2018-05-15] MEDS ORDERED: Lidocaine PF 1% Inj 5 ML Syringe INFILTRATN ONE (12:00)
--- NOTE | 2018-05-15 12:25 | P.PNIM ---
Subjective Interval history: This is a 77-year-old female with a PMH of Anxiety, Diverticulosis, h/o GI Bleed and HTN who was brought to the ER by EMS for acute onset of rectal bleeding starting earlier this evening. Notes associated lightheadedness/ dizziness. Upon EMS arrival, noted to be hypotensive w/ BP 70's, good response to IVF, BP 140's while in ER. Denies nausea, vomiting or diarrhea. On arrival , BP 143/75, HR 81, O2 sat 98% on RA, Afebrile. Hemoglobin 9.5, no previous labs for comparison. INR 1.1. Chemistry unremarkable except for GFR 58. Troponin negative. CT Abdomen/Pelvis considerable stool throughout the colon especially the rectum, possible ill-defined mass pancreatic tail with recommendation for MRI of the abdomen renal cysts, bladder stone, possible mild cystitis. Hemoccult + on exam. Of note, pt relays that she wishes to be a DNR , is agreeable to transfusion in needed, but does not want resuscitation or intubation. 8- to go for MRI OF ABDOMEN TODAY GI HAS BEEN CONSULTED IS A DNR ?PANCREATIC MASS TO HAVE MRI--HAD MRI ANXIETY- NEEDS ATIVAN FOR MRI TO HAVE COLONOSCOPY TOMORROW 8 HAD COLONOSCOPY--POOR PREP HEMOGLOBIN DROPPED WILL TRANSFUSE 2 UNITS PRBC AM LABS REFUSING TO PREP FOR COLONOSCOPY TOMORROW MAKE FULL ADMISSION 8 HAD TRANSFUSION LAST NIGHT HGB WAS 10.4 NOW 9.5 WILL RECHECK AT NOON HYPOKALEMIA WILL REPLACE WITH PO POTASSIUM AM LABS PT AND OT WILL NEED HHC AT HOME LIVES ALONE REPEAT COLONOSCOPY TOMORROW 8-30 REPEAT COLONOSCOPY TODAY DW RN AND PT AND CM HGB SORT OF STABLE Physical Exam Vital signs: Vital Signs 05/14/18 16:00 05/14/18 20:00 05/15/18 00:00 Temperature 97.8 F 98.1 F 98.3 F Pulse Rate 84 72 83 Respiratory Rate 16 19 19 Blood Pressure 130/77 113/68 135/74 Pulse Oximetry 97 98 95 05/15/18 04:00 05/15/18 07:49 05/15/18 11:50 Temperature 97.5 F L 98.6 F Pulse Rate 69 90 83 Respiratory Rate 19 16 Blood Pressure 127/58 L 128/70 Pulse Oximetry 94 L 96 Intake & Output 05/14/18 05/15/18 05/15/18 18:59 06:59 18:59 Intake Total 240 / 240 Balance 240 / 240 Weight 59.6 kg Intake: Oral 240 / 240 Other: # Voids 6 2 3 Date of Last Bowel Movement 05/13/18 05/14/18 05/15/18 # Bowel Movements 3 # Incontinent Bowel Movements 1 Weight On Admission 59.6 kg Narrative: GENERAL: Very pleasant elderly white female in no acute distress, ambulating to and from bathroom without difficulty. HEENT: PERRLA, EOMI. No scleral icterus or conjunctival pallor. No lid lag or facial droop. CARDIOVASCULAR: Regular rate and rhythm. No obvious murmurs to auscultation. No chest tenderness to palpation. RESPIRATORY: No obvious rhonchi or wheezing. Clear to auscultation. Breath sounds equal bilaterally. GASTROINTESTINAL: Abdomen soft, non-tender, nondistended. BS normal. MUSCULOSKELETAL: Extremities without clubbing, cyanosis, or edema. No obvious deformities. NEUROLOGICAL: Awake, alert and oriented x4. No focal neurologic deficits. Moving both upper and lower extremities spontaneously. Results - Labs CBC & Chem 7: 05/15/18 05:35 05/15/18 05:35 Laboratory Results - last 24 hr 05/14/18 05/15/18 05/15/18 12:34 00:23 05:35 WBC 7.7 5.7 RBC 3.42 L 3.22 L Hgb 10.2 L 10.2 L 9.7 L Hct 30.1 L 29.8 L 28.1 L MCV 88.1 87.1 MCH 29.9 30.2 MCHC 33.9 34.7 RDW 15.0 14.8 Plt Count 277 241 MPV 8.3 8.2 Neut % (Auto) 38.8 37.5 Lymph % (Auto) 39.0 35.0 [place] % (Auto) 14.2 H 15.2 H Eos % (Auto) 7.0 H 11.2 H Baso % (Auto) 1.0 1.1 Neut # (Auto) 3.0 2.1 Lymph # (Auto) 3.0 2.0 [place] # (Auto) 1.1 H 0.9 Eos # (Auto) 0.5 H 0.6 H Baso # (Auto) 0.1 0.1 WBC Differential . . Differential Comment Auto diff final Auto diff final PT INR Sodium Potassium Chloride Carbon Dioxide Anion Gap BUN Creatinine Estimated GFR Random Glucose Calcium Phosphorus Magnesium Total Bilirubin AST ALT Alkaline Phosphatase Total Protein Albumin 05/15/18 05/15/18 05:35 05:35 WBC RBC Hgb Hct MCV MCH MCHC RDW Plt Count MPV Neut % (Auto) Lymph % (Auto) [place] % (Auto) Eos % (Auto) Baso % (Auto) Neut # (Auto) Lymph # (Auto) [place] # (Auto) Eos # (Auto) Baso # (Auto) WBC Differential Differential Comment PT 10.1 INR 1.0 Sodium 144 Potassium 3.9 D Chloride 110 H Carbon Dioxide 27.8 Anion Gap 6 BUN 7 Creatinine 0.60 Estimated GFR Greater than 89 Random Glucose 96 Calcium 8.0 L Phosphorus 2.3 L Magnesium 2.5 Total Bilirubin 0.4 AST 14 L ALT 14 Alkaline Phosphatase 48 Total Protein 5.9 L Albumin 2.6 L - Procedures COLONOSCOPY 8- SUSPECTED DIVERTICULAR BLEEDING-POOR BOWEL PREP INTERNAL AND EXTERNAL HEMORRHOIDS Assessment and Plan - Assessment (1) GI bleed Code(s): K92.2 - Gastrointestinal hemorrhage, unspecified Status: Acute (2) Anemia Code(s): D64.9 - Anemia, unspecified Status: Acute (3) Pancreatic mass Code(s): K86.9 - Disease of pancreas, unspecified Status: Acute (4) DNR (do not resuscitate) Code(s): Z66 - Do not resuscitate Status: Acute - Plan 1. GI Bleed: acute onset rectal bleeding, h/o GI Bleed from Diverticulosis, Hemoccult + on exam, currently on Protonix gtt, NPO, IVF, GI Consult for further eval/intervention. --SUSPECTED DIVERTICULAR BLEEDING- 2. Anemia: Hgb 9.3, no previous labs for comparison, recheck Hgb/Hct, transfuse as needed. - DROPPED AGAIN WILL TRANSFUSE 2UNITS PRBC- HGB DROPPED AGAIN WILL RECHECK LATER TODAY 3. Pancreatic Mass: CT Abd/Pelvis w/ questionable pancreatic mass, recommendation for MRI, will obtain MRI Abd for further evaluation. --MRI SHOWS ABNORMAL PANCREAS 4. DNR: Code Status confirmed with patient, agreeable to transfusion if needed , however does not want intubation/resuscitation. 5. DVT Prophylaxis: Pharmacologic contraindication in light of GI Bleed 6. Social work for DC planning as needed. ANXIETY WILL GIVE ATIVAN PRIOR TO MRI -CONTINUE ALPRAZOLAM AND SERTRALINE HYPERTENSION CONTINUE AMLODIPINE ANEMIA WILL TRANSFUSE 2 UNITS PRBC AM LABS DW RN AND PT AND CM HYPOKALEMIA WILL REPLACE WILL RECHECK HEMOGLOBIN AT NOON WILL NEED HHC AT DC AM LABS ASCENCION RN AND PT AND GI FOR COLONOSCOPY TOMORROW DC WHEN CLEARED BY GI FOR DC Code Status: DNR Discussed Condition With: RN AND PT AND CM Discharge Planning: AFTER BLEEDING STABILIZES
--- NOTE | 2018-05-15 14:37 | GIPROC ---
[facility] [address] [facility]. [facility], [address] COLONOSCOPY PROCEDURE REPORT EXAM DATE: 05/15/2018 PATIENT NAME: Nadine Byrnes MR #: [id number] BIRTHDATE: 1940 ENDOSCOPIST: Karla Oliver MD ORDER #: [id number] RELATIONS MGR: Patricia Cavanaugh Powers, Victoria, and Andreina Whaley STATUS: inpatient INDICATIONS: The patient is a 77 yr old female here for a colonoscopy due to hematochezia PROCEDURE PERFORMED: Colonoscopy, diagnostic MEDICATIONS: None and Per Anesthesia. PREP QUALITY: The [place] Bowel Prep Score was Right colon 2, Mid colon 2, and Left colon 2. Total = 6. PREP TYPE:GoLytely ESTIMATED BLOOD LOSS: None CONSENT: The patient understands the risks and benefits of the procedure and understands that these risks include, but are not limited to: sedation, allergic reaction, infection, perforation and/or bleeding. Alternative means of evaluation and treatment include, among others: physical exam, x-rays, and/or surgical intervention. The patient elects to proceed with this endoscopic procedure. medical equipment was checked for proper function. Hand hygiene and appropriate measures for infection prevention was taken. After the risks, benefits and alternatives of the procedure were thoroughly explained, Informed consent was verified, confirmed and timeout was successfully executed by the treatment team. A digital exam revealed external hemorrhoids The Pentax [id number] endoscope was introduced through the anus and advanced to the cecum, which was identified by both the appendix and ileocecal valve. The instrument was then slowly withdrawn as the colon was fully examined. COLON FINDINGS: Severe diverticulosis was noted throughout the entire examined colon. No bleeding was noted from the diverticulosis. 100 cc of fresh blood in left colon. No active site seen. Retroflexed views revealed internal hemorrhoids and Retroflexed views revealed medium internal hemorrhoids The scope was then completely withdrawn from the patient and the procedure terminated. PROCEDURE WITHDRAWAL TIME:8minutes ADVERSE EVENTS: There were no complications. IMPRESSIONS: 1. Severe diverticulosis was noted throughout the entire examined colon 2. 100 cc of fresh blood in left colon. No active site seen 3. Retroflexed views revealed internal hemorrhoids 4. Retroflexed views revealed medium internal hemorrhoids 5. Revealed external hemorrhoids RECOMMENDATIONS: 1. Continue surveillance 2. Yearly hemoccult 3. High fiber diet 4. No seeds, nuts and popcorn in diet 5. Bleeding scan RECALL: Return 1 year Colonoscopy Karla Oliver MD eSigned: Karla Oliver MD 05/15/2018 2:37 PM cc: PATIENT NAME: Nadine Brynes MR#: [id number]
--- NOTE | 2018-05-15 18:52 | NM ---
EXAM DATE: 05/15/2018 6:48 PM EDT AGE/SEX: 77 years / Female INDICATIONS: Rectal bleed. CLINICAL DATA: This is the patient's initial encounter. Patient reports that signs and symptoms have been present for 1 day and indicates a pain score of 0/10. MEDICAL/SURGICAL HISTORY: Diverticulitis. Hysterectomy. COMPARISON: [facility] [place]BDOMEN & PELVIS W CONTRAST, 05/12/2018. . TECHNIQUE: Following the modified in vitro labeling of autologous red cells, dynamic continuous image s were acquired for two hours. ?? DOSE: 20.8 mCi Tc 99m Ultratag Labeled Red Blood Cells IV IMAGING TIME: 2 hr , 30 min FINDINGS: Biodistribution: There is a very good labeling of red cells without significant uptake in the gastri c wall. There is good delineation of the blood pool of the spleen and abdominal vessels. Bleeding: There is an area of hemorrhage seen at the left upper quadrant. This extend inferiorly in to the left pelvis. It is thought this likely corresponds to an area of hemorrhage at the splenic fle xure region of the colon. CONCLUSION: GI bleed beginning in the left upper quadrant thought to be in the splenic flexure region of the colo n. Electronically signed by: Gerard Rubio MD 05/15/2018 6:51 PM EDT
[2018-05-16 05:51] LABS: Baso # (Auto) 0.1 th/mm3 (0.0-0.2); Baso % (Auto) 1.1 % (0.0-2.0); Eos # (Auto) 0.4 th/mm3 (0.0-0.4); Hematocrit 27.6 % (35.0-46.0); Hemoglobin 9.2 gm/dL (11.6-15.3); Lymph # (Auto) 2.3 th/mm3 (1.0-4.8); Lymph % (Auto) 40.6 % (9.0-44.0); Mean Corpuscular HGB Conc 33.4 % (32.0-36.0); Mean Corpuscular Hemoglobin 29.7 pg (27.0-34.0); Mean Corpuscular Volume 88.9 fL (80.0-100.0); Mean Platelet Volume 8.3 fL (7.0-11.0); Mono # (Auto) 0.8 th/mm3 (0.0-0.9); Mono % (Auto) 13.5 % (0.0-8.0); Neut # (Auto) 2.1 th/mm3 (1.8-7.7); Neut % (Auto) 36.8 % (16.0-70.0); Platelet Count 276 th/mm3 (150-450); Red Cell Distribution Width 15.1 % (11.6-17.2); White Blood Count 5.6 th/mm3 (4.0-11.0)
[2018-05-16 06:15] LABS: Albumin 2.6 g/dL (3.4-5.0); Anion Gap 9 meq/L (5-15); Aspartate Aminotransferase 12 U/L (15-37); Blood Urea Nitrogen 8 mg/dL (7-18); Calcium 8.1 mg/dL (8.5-10.1); Chloride 109 meq/L (98-107); Glomerular Filtration Rate 85 mL/min (>89); Glucose,Random 81 mg/dL (74-106); Magnesium 2.6 mg/dL (1.5-2.5); Potassium 3.9 meq/L (3.5-5.1); Sodium 144 meq/L (136-145)
[2018-05-16 06:20] LABS: Alanine Aminotransferase 13 U/L (10-53); Alkaline Phosphatase 47 U/L (45-117); Phosphorus 3.1 mg/dL (2.5-4.9); Total Protein 5.9 g/dL (6.4-8.2)
[2018-05-16] MEDS: Senna/Docusate Sodium 8.6/50 MG Tablet PO SCH ×2 (07:46→08:30)
[2018-05-16] MEDS: ALPRAZolam 0.5 MG Tablet PO PRN ×2 (07:46→21:48)
[2018-05-16] MEDS: Sertraline 50 MG Tablet PO SCH ×2 (07:47→08:30)
[2018-05-16] MEDS: amLODIPine 5 MG Tablet PO SCH ×2 (07:47→08:30)
[2018-05-16] MEDS: Potassium Bicarbonate 25 MEQ Effervescent Tablet PO SCH (11:59)
--- NOTE | 2018-05-16 12:32 | P.PN ---
Subjective Interval history: This is a 77-year-old female with a PMH of Anxiety, Diverticulosis, h/o GI Bleed and HTN who was brought to the ER by EMS for acute onset of rectal bleeding starting earlier this evening. Notes associated lightheadedness/ dizziness. Upon EMS arrival, noted to be hypotensive w/ BP 70's, good response to IVF, BP 140's while in ER. Denies nausea, vomiting or diarrhea. On arrival , BP 143/75, HR 81, O2 sat 98% on RA, Afebrile. Hemoglobin 9.5, no previous labs for comparison. INR 1.1. Chemistry unremarkable except for GFR 58. Troponin negative. CT Abdomen/Pelvis considerable stool throughout the colon especially the rectum, possible ill-defined mass pancreatic tail with recommendation for MRI of the abdomen renal cysts, bladder stone, possible mild cystitis. Hemoccult + on exam. Of note, pt relays that she wishes to be a DNR , is agreeable to transfusion in needed, but does not want resuscitation or intubation. 8 to go for MRI OF ABDOMEN TODAY GI HAS BEEN CONSULTED IS A DNR ?PANCREATIC MASS TO HAVE MRI--HAD MRI ANXIETY- NEEDS [facility] FOR MRI TO HAVE COLONOSCOPY TOMORROW 8 HAD COLONOSCOPY--POOR PREP HEMOGLOBIN DROPPED WILL TRANSFUSE 2 UNITS PRBC AM LABS REFUSING TO PREP FOR COLONOSCOPY TOMORROW MAKE FULL ADMISSION 8 HAD TRANSFUSION LAST NIGHT HGB WAS 10.4 NOW 9.5 WILL RECHECK AT NOON HYPOKALEMIA WILL REPLACE WITH PO POTASSIUM AM LABS PT AND OT WILL NEED HHC AT HOME LIVES ALONE REPEAT COLONOSCOPY TOMORROW 830 REPEAT COLONOSCOPY TODAY DW RN AND PT AND CM HGB SORT OF STABLE 05-16 In bed appears in nad. No BM today. Diffuse abd pain, imprpved. No fever ro chills. No n/v/d. Physical Exam Vital signs: Vital Signs 05/15/18 14:42 05/15/18 14:57 05/15/18 20:00 Temperature 98.3 F 98.3 F 97.8 F Pulse Rate 90 88 90 Respiratory Rate 18 16 18 Blood Pressure 122/79 125/72 111/67 Pulse Oximetry 97 98 94 L 05/16/18 00:00 05/16/18 04:00 Temperature 97.9 F 97.9 F Pulse Rate 86 86 Respiratory Rate 18 18 Blood Pressure 131/70 118/67 Pulse Oximetry 95 96 Intake & Output 05/15/18 05/16/18 05/16/18 18:59 06:59 18:59 Intake Total 300 / 300 Balance 300 / 300 Weight 61.2 kg Intake: Anesthesia Amount 300 / 300 Other: # Voids 3 2 Date of Last Bowel Movement 05/15/18 # Bowel Movements 1 Narrative: GENERAL: Very pleasant elderly white female in no acute distress, ambulating to and from bathroom without difficulty. HEENT: PERRLA, EOMI. No scleral icterus or conjunctival pallor. No lid lag or facial droop. CARDIOVASCULAR: Regular rate and rhythm. No obvious murmurs to auscultation. No chest tenderness to palpation. RESPIRATORY: No obvious rhonchi or wheezing. Clear to auscultation. Breath sounds equal bilaterally. GASTROINTESTINAL: Abdomen soft, non-tender, nondistended. BS normal. MUSCULOSKELETAL: Extremities without clubbing, cyanosis, or edema. No obvious deformities. NEUROLOGICAL: Awake, alert and oriented x4. No focal neurologic deficits. Moving both upper and lower extremities spontaneously. Results - Labs CBC & Chem 7: 05/16/18 03:42 05/16/18 03:42 Laboratory Results - last 24 hr 05/16/18 05/16/18 03:42 03:42 WBC 5.6 RBC 3.10 L Hgb 9.2 L Hct 27.6 L MCV 88.9 MCH 29.7 MCHC 33.4 RDW 15.1 Plt Count 276 MPV 8.3 Neut % (Auto) 36.8 Lymph % (Auto) 40.6 [place] % (Auto) 13.5 H Eos % (Auto) 8.0 H Baso % (Auto) 1.1 Neut # (Auto) 2.1 Lymph # (Auto) 2.3 [place] # (Auto) 0.8 Eos # (Auto) 0.4 Baso # (Auto) 0.1 WBC Differential . Differential Comment Auto diff final Sodium 144 Potassium 3.9 Chloride 109 H Carbon Dioxide 26.0 Anion Gap 9 BUN 8 Creatinine 0.67 Estimated GFR 85 L Random Glucose 81 Calcium 8.1 L Phosphorus 3.1 Magnesium 2.6 H Total Bilirubin 0.4 AST 12 L ALT 13 Alkaline Phosphatase 47 Total Protein 5.9 L Albumin 2.6 L - Imaging Impressions GI Bleed Scan Nuclear Medicine 05/15/18 00:00 CONCLUSION: GI bleed beginning in the left upper quadrant thought to be in the splenic flexure region of the colon. - Procedures COLONOSCOPY 8 SUSPECTED DIVERTICULAR BLEEDING-POOR BOWEL PREP INTERNAL AND EXTERNAL HEMORRHOIDS Assessment and Plan - Assessment (1) GI bleed Code(s): K92.2 - Gastrointestinal hemorrhage, unspecified Status: Acute (2) Anemia Code(s): D64.9 - Anemia, unspecified Status: Acute (3) Pancreatic mass Code(s): K86.9 - Disease of pancreas, unspecified Status: Acute (4) DNR (do not resuscitate) Code(s): Z66 - Do not resuscitate Status: Acute - Plan 1. GI Bleed: acute onset rectal bleeding, h/o GI Bleed from Diverticulosis, Hemoccult + on exam, currently on Protonix gtt, NPO, IVF, GI Consult for further eval/intervention. --SUSPECTED DIVERTICULAR BLEEDING- 2. Anemia: Hgb 9.3, no previous labs for comparison, recheck Hgb/Hct, transfuse as needed. - DROPPED AGAIN WILL TRANSFUSE 2UNITS PRBC- HGB DROPPED AGAIN WILL RECHECK LATER TODAY 3. Pancreatic Mass: CT Abd/Pelvis w/ questionable pancreatic mass, recommendation for MRI, will obtain MRI Abd for further evaluation. --MRI SHOWS ABNORMAL PANCREAS 4. DNR: Code Status confirmed with patient, agreeable to transfusion if needed , however does not want intubation/resuscitation. 5. DVT Prophylaxis: Pharmacologic contraindication in light of GI Bleed 6. Social work for DC planning as needed. [facility] PRIOR TO MRI -CONTINUE ALPRAZOLAM AND SERTRALINE HYPERTENSION CONTINUE AMLODIPINE ANEMIA WILL TRANSFUSED 2 UNITS PRBC Monitor H.H HYPOKALEMIA WILL REPLACE WILL RECHECK HEMOGLOBIN AT NOON WILL NEED HHC AT DC AM LABS DW RN AND PT AND GI FOR COLONOSCOPY TOMORROW DC WHEN CLEARED BY GI FOR DC Code Status: DNR Discussed Condition With: Patient, nurse, case management Discharge Planning: WHEN IMPROVES, CLEARED BY GI AND AFTER BLEEDING STABILIZES
--- NOTE | 2018-05-16 14:01 | P.PNGI ---
Subjective Interval history: Pt in bedside chair, states she has been tolerating moderate amount of food. Has not had BM since colonoscopy yesterday. Denies nausea, vomiting, abdominal pain. Physical Exam Vital signs: Vital Signs 05/15/18 14:42 05/15/18 14:57 05/15/18 20:00 Temperature 98.3 F 98.3 F 97.8 F Pulse Rate 90 88 90 Respiratory Rate 18 16 18 Blood Pressure 122/79 125/72 111/67 Pulse Oximetry 97 98 94 L 05/16/18 00:00 05/16/18 04:00 05/16/18 12:00 Temperature 97.9 F 97.9 F 98.9 F Pulse Rate 86 86 96 H Respiratory Rate 18 18 18 Blood Pressure 131/70 118/67 135/75 Pulse Oximetry 95 96 95 Intake & Output 05/15/18 05/16/18 05/16/18 18:59 06:59 18:59 Intake Total 300 / 300 Balance 300 / 300 Weight 61.2 kg Intake: Anesthesia Amount 300 / 300 Other: # Voids 3 2 Date of Last Bowel Movement 05/15/18 # Bowel Movements 1 - Constitutional no acute distress - Routine HEENT Exam Head: Present: normocephalic, atraumatic - Routine Respiratory Exam Absent: accessory muscle use - Routine Abdominal Exam Present: soft, normoactive bowel sounds. Absent: tenderness, distended - Routine Skin Exam Present: dry, warm - Routine Neurological Exam Present: alert, oriented X3 Results - Labs CBC & Chem 7: 05/16/18 03:42 05/16/18 03:42 Laboratory Results - last 24 hr 05/16/18 05/16/18 03:42 03:42 WBC 5.6 RBC 3.10 L Hgb 9.2 L Hct 27.6 L MCV 88.9 MCH 29.7 MCHC 33.4 RDW 15.1 Plt Count 276 MPV 8.3 Neut % (Auto) 36.8 Lymph % (Auto) 40.6 [place] % (Auto) 13.5 H Eos % (Auto) 8.0 H Baso % (Auto) 1.1 Neut # (Auto) 2.1 Lymph # (Auto) 2.3 Will # (Auto) 0.8 Eos # (Auto) 0.4 Baso # (Auto) 0.1 WBC Differential . Differential Comment Auto diff final Sodium 144 Potassium 3.9 Chloride 109 H Carbon Dioxide 26.0 Anion Gap 9 BUN 8 Creatinine 0.67 Estimated GFR 85 L Random Glucose 81 Calcium 8.1 L Phosphorus 3.1 Magnesium 2.6 H Total Bilirubin 0.4 AST 12 L ALT 13 Alkaline Phosphatase 47 Total Protein 5.9 L Albumin 2.6 L - Imaging Impressions GI Bleed Scan Nuclear Medicine 05/15/18 00:00 CONCLUSION: GI bleed beginning in the left upper quadrant thought to be in the splenic flexure region of the colon. - Procedures COLONOSCOPY 05-13 SUSPECTED DIVERTICULAR BLEEDING-POOR BOWEL PREP INTERNAL AND EXTERNAL HEMORRHOIDS Assessment and Plan - Plan - Acute GI bleed- presented with acute onset of rectal bleeding started last night. This is described as bloody clots, significant amount, she had few episodes, but none since admission. Denies nausea, vomiting, abd pain, melena, constipation or diarrhea. On arrival, Hemoglobin 9.5, Hemoccult + on exam. CT Abdomen/Pelvis considerable stool throughout the colon especially the rectum, possible ill-defined mass pancreatic tail with recommendation for MRI of the abdomen renal cysts, bladder stone, possible mild cystitis. Last colonoscopy was 7 yrs ago by report. Pt denies previous hx of pancreatic issues, denies alcohol intake. States has been on Cipro for UTI. PT not on blood thinner. - possible ill-defined mass pancreatic tail on CT- MRI ordered by attending, LFTs wnl, lipase wnl - PMH of Anxiety, HTN, per attending (05/14) S/P colonoscopy yesterday, H/H stable since 2 units of PRBCs, pt had BM after colonoscopy but has not had another BM since. Pt denies nausea, vomiting, abdominal pain. Colonoscopy --> Severe diverticulosis was noted throughout the entire examined colon. Very poor prep with blood mixed with stool throughout the colon. No active bleeding seen. Retroflexed views revealed internal hemorrhoids. Retroflexed views revealed medium internal hemorrhoids. Revealed external hemorrhoids. 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 Bilateral renal cyst. No adenopathy. No hepatic mass. CA 19-9 31 (05/16) S/P repeat colonoscopy yesterday, no BM since procedure. Denies nausea, vomiting, abdominal pain. H/H trending down some. Colonoscopy --> Severe diverticulosis was noted throughout the entire examined colon. 100 cc of fresh blood in left colon. No active site seen. Internal and external hemorrhoids NM Bleeding scan (+) --> GI bleed beginning in the left upper quadrant thought to be in the splenic flexure region of the colon. Plan: IR consult for CT angiogram with embolization Monitor H/H Transfuse as indicated EUS to be done outpatient Further recommendations to follow Pt has been seen and examined by myself and Dr. Oliver and this note is written on his behalf
[2018-05-16] MEDS ORDERED: fentaNYL Citrate Inj 250 MCG/5 ML Ampul ONE (19:02)
--- NOTE | 2018-05-16 20:05 | P.RAD ---
Post Procedure Progress Note - Procedure Information Procedure Date: 05/16/18 Supervising Radiologist: Azam Multani MD Estimated blood loss (mL): 0 Anesthesia: Conscious Sedation - Plan of Activity Patient to Unit: PACU Patient Condition: Good Additional Comments: Mesenteric angio does not semonstrate active bleeding. Very small caliber DALE but was able to canulate. No bleeding in DALE territory at this time. See PACS Report for procedural detail/treatment.
[2018-05-17] MEDS: Senna/Docusate Sodium 8.6/50 MG Tablet PO SCH ×3 (03:20→20:48)
[2018-05-17 07:12] LABS: Baso # (Auto) 0.1 th/mm3 (0.0-0.2); Eos # (Auto) 0.5 th/mm3 (0.0-0.4); Eos % (Auto) 8.9 % (0.0-4.0); Hematocrit 28.3 % (35.0-46.0); Hemoglobin 9.3 gm/dL (11.6-15.3); Lymph # (Auto) 2.5 th/mm3 (1.0-4.8); Lymph % (Auto) 40.8 % (9.0-44.0); Mean Corpuscular Hemoglobin 29.4 pg (27.0-34.0); Mean Corpuscular Volume 89.2 fL (80.0-100.0); Mono # (Auto) 0.7 th/mm3 (0.0-0.9); Mono % (Auto) 11.8 % (0.0-8.0); Neut # (Auto) 2.3 th/mm3 (1.8-7.7); Neut % (Auto) 37.5 % (16.0-70.0); Platelet Count 290 th/mm3 (150-450); Red Blood Count 3.18 mil/mm3 (4.00-5.30); Red Cell Distribution Width 15.5 % (11.6-17.2); White Blood Count 6.2 th/mm3 (4.0-11.0)
[2018-05-17 07:35] LABS: Anion Gap 12 meq/L (5-15); Blood Urea Nitrogen 10 mg/dL (7-18); Calcium 7.9 mg/dL (8.5-10.1); Carbon Dioxide 25.5 meq/L (21.0-32.0); Chloride 108 meq/L (98-107); Glomerular Filtration Rate Greater Than 89 mL/min (>89); Glucose,Random 86 mg/dL (74-106); Potassium 3.7 meq/L (3.5-5.1); Sodium 145 meq/L (136-145)
[2018-05-17] MEDS: Potassium Bicarbonate 25 MEQ Effervescent Tablet PO SCH (08:26)
[2018-05-17] MEDS: ALPRAZolam 0.5 MG Tablet PO PRN ×2 (08:26→20:48)
[2018-05-17] MEDS: amLODIPine 5 MG Tablet PO SCH (08:26)
[2018-05-17] MEDS: Sertraline 50 MG Tablet PO SCH (08:26)
--- NOTE | 2018-05-17 09:58 | P.PN ---
Subjective Interval history: She is admitted says she feels weak and cannot go home. She will rather go to a rehab place. Physical therapy will evaluate the patient. She is on clear liquid diet. Discussed with Dr. Diego REYNOLDS. Will advance diet to cardiac diet today. Patient denies having any bowel movement today. Thinks she is not bleeding anymore. Had a CT angiogram without embolization was no signs of bleeding. Hemoglobin is stable so far. Case management also is following for discharge plan. Physical Exam Vital signs: Vital Signs 05/16/18 12:00 05/16/18 16:00 05/16/18 20:35 Temperature 98.9 F 97.9 F 98.3 F Pulse Rate 96 H 95 H 73 Respiratory Rate 18 18 16 Blood Pressure 135/75 111/65 120/65 Pulse Oximetry 95 96 100 05/16/18 20:45 05/16/18 21:00 05/16/18 21:15 Temperature Pulse Rate 75 74 72 Respiratory Rate 18 18 18 Blood Pressure 107/59 L 110/61 110/64 Pulse Oximetry 96 96 96 05/16/18 21:30 05/16/18 21:45 05/16/18 22:00 Temperature Pulse Rate 82 88 79 Respiratory Rate 18 19 19 Blood Pressure 131/72 110/67 108/57 L Pulse Oximetry 96 97 98 05/16/18 22:45 05/16/18 22:55 05/17/18 00:00 Temperature 98.2 F 97 F L Pulse Rate 75 75 81 Respiratory Rate 19 19 20 Blood Pressure 99/57 L 104/61 Pulse Oximetry 97 96 05/17/18 04:00 05/17/18 08:00 Temperature 97.8 F 97.9 F Pulse Rate 75 86 Respiratory Rate 20 17 Blood Pressure 107/60 119/63 Pulse Oximetry 94 L 95 Intake & Output 05/16/18 05/17/18 05/17/18 18:59 06:59 18:59 Intake Total 720 / 720 290 / 290 Output Total 200 / 200 Balance 720 / 720 90 / 90 Intake: Oral 720 / 720 290 / 290 Output: Urine 200 / 200 Other: # Voids 4 1 Narrative: GENERAL: Very pleasant elderly white female in no acute distress. HEENT: PERRLA, EOMI. No scleral icterus or conjunctival pallor. No lid lag or facial droop. CARDIOVASCULAR: Regular rate and rhythm. No obvious murmurs to auscultation. No chest tenderness to palpation. RESPIRATORY: No obvious rhonchi or wheezing. Clear to auscultation. Breath sounds equal bilaterally. GASTROINTESTINAL: Abdomen soft, non-tender, nondistended. BS normal. MUSCULOSKELETAL: Extremities without clubbing, cyanosis, or edema. No obvious deformities. NEUROLOGICAL: Awake, alert and oriented x4. No focal neurologic deficits. Moving both upper and lower extremities spontaneously. Results - Labs CBC & Chem 7: 05/17/18 06:35 05/17/18 06:35 Laboratory Results - last 24 hr 05/12/18 05/17/18 05/17/18 11:40 06:35 06:35 WBC 6.2 RBC 3.18 L Hgb 9.3 L Hct 28.3 L MCV 89.2 MCH 29.4 MCHC 33.0 RDW 15.5 Plt Count 290 MPV 8.0 Neut % (Auto) 37.5 Lymph % (Auto) 40.8 [place] % (Auto) 11.8 H Eos % (Auto) 8.9 H Baso % (Auto) 1.0 Neut # (Auto) 2.3 Lymph # (Auto) 2.5 [place] # (Auto) 0.7 Eos # (Auto) 0.5 H Baso # (Auto) 0.1 WBC Differential . Differential Comment Auto diff final Sodium 145 Potassium 3.7 Chloride 108 H Carbon Dioxide 25.5 Anion Gap 12 BUN 10 Creatinine 0.61 Estimated GFR Greater than 89 Random Glucose 86 Calcium 7.9 L Gestational Age Unavailable AFP MoM AFP Interpretation ND Down's Maternal Age Risk Unavailable Down Syndrome Risk Unavailable Trisomy 18 Risk Unavailable NTD Risk Assessment Unavailable - Procedures COLONOSCOPY 05-13 SUSPECTED DIVERTICULAR BLEEDING-POOR BOWEL PREP INTERNAL AND EXTERNAL HEMORRHOIDS S/p CT angio by IR 05/16 Mesenteric angio does not demonstrate active bleeding. Very small caliber DALE but was able to canulate. No bleeding in DALE territory at this time. Assessment and Plan - Assessment (1) GI bleed Code(s): K92.2 - Gastrointestinal hemorrhage, unspecified Status: Acute (2) Anemia Code(s): D64.9 - Anemia, unspecified Status: Acute (3) Pancreatic mass Code(s): K86.9 - Disease of pancreas, unspecified Status: Acute (4) DNR (do not resuscitate) Code(s): Z66 - Do not resuscitate Status: Acute - Plan 1. GI Bleed: acute onset rectal bleeding, h/o GI Bleed from Diverticulosis, Hemoccult + on exam, currently on Protonix gtt, NPO, IVF, GI Consult for further eval/intervention. --SUSPECTED DIVERTICULAR BLEEDING- 2. Anemia: Hgb 9.3, no previous labs for comparison, recheck Hgb/Hct, transfuse as needed. - TRANSFUSED 2UNITS PRBCs NM Bleeding scan (+) --> GI bleed beginning in the left upper quadrant thought to be in the splenic flexure region of the colon. IR consulted for CT angiogram with embolization S/p CT angio by IR 05/16 Mesenteric angio does not demonstrate active bleeding. Very small caliber DALE but was able to canulate. No bleeding in DALE territory at this time. EUS to be done outpatient per GI 3. Pancreatic Mass: CT Abd/Pelvis w/ questionable pancreatic mass, recommendation for MRI, will obtain MRI Abd for further evaluation. --MRI SHOWS ABNORMAL PANCREAS 4. DNR: Code Status confirmed with patient, agreeable to transfusion if needed , however does not want intubation/resuscitation. 5. DVT Prophylaxis: Pharmacologic contraindication in light of GI Bleed 6. Social work for DC planning as needed. [facility] PRIOR TO MRI -CONTINUE ALPRAZOLAM AND SERTRALINE HYPERTENSION CONTINUE AMLODIPINE ANEMIA WILL TRANSFUSED 2 UNITS PRBC Monitor H.H HYPOKALEMIA WILL REPLACE WILL RECHECK HEMOGLOBIN AT NOON WILL NEED HHC AT DC AM LABS DW RN AND PT AND GI FOR COLONOSCOPY TOMORROW DC WHEN CLEARED BY GI FOR DC Code Status: DNR Discussed Condition With: Patient, nurse, case management Discharge Planning: WHEN IMPROVES, CLEARED BY GI AND AFTER BLEEDING STABILIZES Patient wants to go to SNF as she lives alone and can;t take care of herself. PT is ff. CM is also ff.
--- NOTE | 2018-05-17 10:44 | P.PNGI ---
Subjective Interval history: No bowel movement over the last 24 hours and asymptomatic, finding of the colonoscopy and IR discussed with the patient. Physical Exam Vital signs: Vital Signs 05/16/18 12:00 05/16/18 16:00 05/16/18 20:35 Temperature 98.9 F 97.9 F 98.3 F Pulse Rate 96 H 95 H 73 Respiratory Rate 18 18 16 Blood Pressure 135/75 111/65 120/65 Pulse Oximetry 95 96 100 05/16/18 20:45 05/16/18 21:00 05/16/18 21:15 Temperature Pulse Rate 75 74 72 Respiratory Rate 18 18 18 Blood Pressure 107/59 L 110/61 110/64 Pulse Oximetry 96 96 96 05/16/18 21:30 05/16/18 21:45 05/16/18 22:00 Temperature Pulse Rate 82 88 79 Respiratory Rate 18 19 19 Blood Pressure 131/72 110/67 108/57 L Pulse Oximetry 96 97 98 05/16/18 22:45 05/16/18 22:55 05/17/18 00:00 Temperature 98.2 F 97 F L Pulse Rate 75 75 81 Respiratory Rate 19 19 20 Blood Pressure 99/57 L 104/61 Pulse Oximetry 97 96 05/17/18 04:00 05/17/18 08:00 Temperature 97.8 F 97.9 F Pulse Rate 75 86 Respiratory Rate 20 17 Blood Pressure 107/60 119/63 Pulse Oximetry 94 L 95 Intake & Output 05/16/18 05/17/18 05/17/18 18:59 06:59 18:59 Intake Total 720 / 720 290 / 290 Output Total 200 / 200 Balance 720 / 720 90 / 90 Intake: Oral 720 / 720 290 / 290 Output: Urine 200 / 200 Other: # Voids 4 1 Narrative: GENERAL: Very pleasant elderly white female in no acute distress, ambulating to and from bathroom without difficulty. HEENT: PERRLA, EOMI. No scleral icterus or conjunctival pallor. No lid lag or facial droop. CARDIOVASCULAR: Regular rate and rhythm. No obvious murmurs to auscultation. No chest tenderness to palpation. RESPIRATORY: No obvious rhonchi or wheezing. Clear to auscultation. Breath sounds equal bilaterally. GASTROINTESTINAL: Abdomen soft, non-tender, nondistended. BS normal. MUSCULOSKELETAL: Extremities without clubbing, cyanosis, or edema. No obvious deformities. NEUROLOGICAL: Awake, alert and oriented x4. No focal neurologic deficits. Moving both upper and lower extremities spontaneously. Results - Labs CBC & Chem 7: 05/17/18 06:35 05/17/18 06:35 Laboratory Results - last 24 hr 05/12/18 05/17/18 05/17/18 11:40 06:35 06:35 WBC 6.2 RBC 3.18 L Hgb 9.3 L Hct 28.3 L MCV 89.2 MCH 29.4 MCHC 33.0 RDW 15.5 Plt Count 290 MPV 8.0 Neut % (Auto) 37.5 Lymph % (Auto) 40.8 [place] % (Auto) 11.8 H Eos % (Auto) 8.9 H Baso % (Auto) 1.0 Neut # (Auto) 2.3 Lymph # (Auto) 2.5 [place] # (Auto) 0.7 Eos # (Auto) 0.5 H Baso # (Auto) 0.1 WBC Differential . Differential Comment Auto diff final Sodium 145 Potassium 3.7 Chloride 108 H Carbon Dioxide 25.5 Anion Gap 12 BUN 10 Creatinine 0.61 Estimated GFR Greater than 89 Random Glucose 86 Calcium 7.9 L Gestational Age Unavailable AFP MoM AFP Interpretation ND Down's Maternal Age Risk Unavailable Down Syndrome Risk Unavailable Trisomy 18 Risk Unavailable NTD Risk Assessment Unavailable - Procedures COLONOSCOPY 05-13 SUSPECTED DIVERTICULAR BLEEDING-POOR BOWEL PREP INTERNAL AND EXTERNAL HEMORRHOIDS S/p CT angio by IR 05/16 Mesenteric angio does not demonstrate active bleeding. Very small caliber DALE but was able to canulate. No bleeding in DALE territory at this time. Assessment and Plan - Plan - Acute GI bleed- presented with acute onset of rectal bleeding started last night. This is described as bloody clots, significant amount, she had few episodes, but none since admission. Denies nausea, vomiting, abd pain, melena, constipation or diarrhea. On arrival, Hemoglobin 9.5, Hemoccult + on exam. CT Abdomen/Pelvis considerable stool throughout the colon especially the rectum, possible ill-defined mass pancreatic tail with recommendation for MRI of the abdomen renal cysts, bladder stone, possible mild cystitis. Last colonoscopy was 7 yrs ago by report. Pt denies previous hx of pancreatic issues, denies alcohol intake. States has been on Cipro for UTI. PT not on blood thinner. - possible ill-defined mass pancreatic tail on CT- MRI ordered by attending, LFTs wnl, lipase wnl - PMH of Anxiety, HTN, per attending (05/14) S/P colonoscopy yesterday, H/H stable since 2 units of PRBCs, pt had BM after colonoscopy but has not had another BM since. Pt denies nausea, vomiting, abdominal pain. Colonoscopy --> Severe diverticulosis was noted throughout the entire examined colon. Very poor prep with blood mixed with stool throughout the colon. No active bleeding seen. Retroflexed views revealed internal hemorrhoids. Retroflexed views revealed medium internal hemorrhoids. Revealed external hemorrhoids. 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 Bilateral renal cyst. No adenopathy. No hepatic mass. CA 19-9 31 (05/16) S/P repeat colonoscopy yesterday, no BM since procedure. Denies nausea, vomiting, abdominal pain. H/H trending down some. Colonoscopy --> Severe diverticulosis was noted throughout the entire examined colon. 100 cc of fresh blood in left colon. No active site seen. Internal and external hemorrhoids NM Bleeding scan (+) --> GI bleed beginning in the left upper quadrant thought to be in the splenic flexure region of the colon. IR negative for bleeding. Plan: Diet as tolerated Monitor H/H and clinically Transfuse as indicated EUS to be done outpatient Stable at the current time from GI point of view.
[2018-05-18] MEDS: ALPRAZolam 0.5 MG Tablet PO PRN ×3 (04:40→23:16)
[2018-05-18] MEDS: Senna/Docusate Sodium 8.6/50 MG Tablet PO SCH ×2 (09:13→21:00)
[2018-05-18] MEDS: Sertraline 50 MG Tablet PO SCH (09:14)
[2018-05-18] MEDS: amLODIPine 5 MG Tablet PO SCH (09:14)
[2018-05-18] MEDS: Potassium Bicarbonate 25 MEQ Effervescent Tablet PO SCH (09:15)
--- NOTE | 2018-05-18 11:59 | P.PN ---
Subjective Interval history: Patient is had a bowel movement today. Says she is not bleeding anymore. However bowel movement is dark in color. Diet was advanced to regular diet and she is tolerating well. No fever or chills. No abdominal pain. Denies chest pain or shortness of breath. Feels tired. Hemoglobin is stable so far. Discussed with case management for discharge plan this patient needs once rehab. Physical Exam Vital signs: Vital Signs 05/17/18 16:00 05/17/18 20:00 05/17/18 20:05 Temperature 98.2 F 98 F Pulse Rate 86 87 77 Respiratory Rate 18 17 Blood Pressure 117/63 117/78 Pulse Oximetry 94 L 94 L 05/18/18 00:00 05/18/18 01:01 05/18/18 02:30 Temperature 97.7 F Pulse Rate 85 90 71 Respiratory Rate 17 Blood Pressure 115/63 Pulse Oximetry 95 05/18/18 03:50 05/18/18 04:00 05/18/18 08:00 Temperature 97.7 F 97.6 F Pulse Rate 66 74 90 Respiratory Rate 17 19 Blood Pressure 107/63 126/63 Pulse Oximetry 94 L 95 Intake & Output 05/17/18 05/18/18 05/18/18 18:59 06:59 18:59 Intake Total 1919 Balance 1919 Intake: Oral 1919 Other: # Voids 6 15 Date of Last Bowel Movement 05/17/18 # Bowel Movements 0 Narrative: GENERAL: Very pleasant elderly white female in no acute distress. HEENT: PERRLA, EOMI. No scleral icterus or conjunctival pallor. No lid lag or facial droop. CARDIOVASCULAR: Regular rate and rhythm. No obvious murmurs to auscultation. No chest tenderness to palpation. RESPIRATORY: No obvious rhonchi or wheezing. Clear to auscultation. Breath sounds equal bilaterally. GASTROINTESTINAL: Abdomen soft, non-tender, nondistended. BS normal. MUSCULOSKELETAL: Extremities without clubbing, cyanosis, or edema. No obvious deformities. NEUROLOGICAL: Awake, alert and oriented x4. No focal neurologic deficits. Moving both upper and lower extremities spontaneously. Results - Labs CBC & Chem 7: 05/17/18 06:35 05/17/18 06:35 - Procedures COLONOSCOPY 8-28 SUSPECTED DIVERTICULAR BLEEDING-POOR BOWEL PREP INTERNAL AND EXTERNAL HEMORRHOIDS S/p CT angio by IR 05/16 Mesenteric angio does not demonstrate active bleeding. Very small caliber DALE but was able to canulate. No bleeding in DALE territory at this time. Assessment and Plan - Assessment (1) GI bleed Code(s): K92.2 - Gastrointestinal hemorrhage, unspecified Status: Acute (2) Anemia Code(s): D64.9 - Anemia, unspecified Status: Acute (3) Pancreatic mass Code(s): K86.9 - Disease of pancreas, unspecified Status: Acute (4) DNR (do not resuscitate) Code(s): Z66 - Do not resuscitate Status: Acute - Plan 1. GI Bleed: acute onset rectal bleeding, h/o GI Bleed from Diverticulosis, Hemoccult + on exam, currently on Protonix gtt, NPO, IVF, GI Consult for further eval/intervention. --SUSPECTED DIVERTICULAR BLEEDING- 2. Anemia: Hgb 9.3, no previous labs for comparison, recheck Hgb/Hct, transfuse as needed. - TRANSFUSED 2UNITS PRBCs NM Bleeding scan (+) --> GI bleed beginning in the left upper quadrant thought to be in the splenic flexure region of the colon. IR consulted for CT angiogram with embolization S/p CT angio by IR 05/16 Mesenteric angio does not demonstrate active bleeding. Very small caliber DALE but was able to canulate. No bleeding in DALE territory at this time. EUS to be done outpatient per GI 3. Pancreatic Mass: CT Abd/Pelvis w/ questionable pancreatic mass, recommendation for MRI, will obtain MRI Abd for further evaluation. --MRI SHOWS ABNORMAL PANCREAS 4. DNR: Code Status confirmed with patient, agreeable to transfusion if needed , however does not want intubation/resuscitation. 5. DVT Prophylaxis: Pharmacologic contraindication in light of GI Bleed 6. Social work for DC planning as needed. ATIVAN PRIOR TO MRI -CONTINUE ALPRAZOLAM AND SERTRALINE HYPERTENSION CONTINUE AMLODIPINE ANEMIA WILL TRANSFUSED 2 UNITS PRBC Monitor H.H HYPOKALEMIA WILL REPLACE WILL RECHECK HEMOGLOBIN AT NOON WILL NEED HHC AT DC AM LABS DW RN AND PT AND GI FOR COLONOSCOPY TOMORROW DC WHEN CLEARED BY GI FOR DC Code Status: DNR Discussed Condition With: Patient, nurse, case management Discharge Planning: WHEN IMPROVES, CLEARED BY GI AND AFTER BLEEDING STABILIZES Patient wants to go to SNF as she lives alone and can't take care of herself. PT is ff. CM is also ff.
--- NOTE | 2018-05-18 12:14 | IR ---
EXAM DATE: 05/16/2018 8:38 PM EDT AGE/SEX: 77 years / Female INDICATIONS: 77-year-old female with history of GI bleeding and GI bleed scan demonstrating bleed at the splenic flexure. CLINICAL DATA: This is the patient's initial encounter. Patient reports that signs and symptoms have been present for 1 day and indicates a pain score of 0/10. MEDICAL/SURGICAL HISTORY: Hypertension. Diverticulitis. AnxietyAllergic rhinitis Hysterectomy . COMPARISON: No prior exams available for comparison. FLUORO TIME (min): 14.49 IMAGE SERIES: 9 ACCESS SITE: Left radial artery SEDATION TIME (min): 45 CONTRAST (cc): 140 Visipaque (iodixanol) MEDICATION(S): 3.5mg midazolam (Versed) IV 175mcg fentanyl (Sublimaze) IV DEVICE(S): Left radial artery radial band . . PROCEDURE : 1. Ultrasound-guided puncture of the left radial artery 2. Conscious sedation with continuous EKG and Oximetry monitoring. 3. Selective catheter placement in the celiac artery with selective angiography 4. Selective catheter placement in the SMA with selective angiography 5. Selective catheter placement in the DALE with selective angiography The risks, benefits and alternatives to the procedure were explained and verbal and written consent w as obtained. The site was prepped in sterile fashion. Full sterile technique was used, including ca p, mask, sterile gloves and gown and a large sterile sheet. Hand hygiene and 2% chlorhexidine and/or betadine/alcohol prep was utilized per protocol for cutaneous antisepsis. Sterile gel and sterile p robe cover were utilized for ultrasound guidance. The skin and subcutaneous tissues were infiltrated with local anesthetic solution. With ultrasound and fluoroscopic guidance the selected artery was punctured and a vascular sheath was placed. A 5 Angolan slip sheath was placed. 4 Angolan Mack catheter was advanced into the celiac heide ry and celiac angiography was performed. Catheter was then repositioned into the SMA and SMA angiogra phy was performed in multiple obliquities. Catheter was then repositioned into the DALE and angiograph y was performed in multiple obliquities. Wires and catheters were then removed. TR band device was th en applied to the puncture site. The patient tolerated the procedure well and there were no complications. Conscious sedation was performed with the prescribed dosages and duration as above in the presence of an independent trained radiology nurse to assist in the monitoring of the patient. EKG and oximetry remained stable throughout the procedure. FINDINGS: There is standard celiac and SMA anatomy. No evidence for contrast extravasation with small caliber celiac and DALE branches. CONCLUSION: 1. Three vessel mesenteric angiography demonstrates no evidence for active hemorrhage at this time. Electronically signed by: Azam Multani MD 05/18/2018 12:13 PM EDT
[2018-05-18 21:20] VITALS: RESP 17
[2018-05-19 04:24] VITALS: BP 122/71; PULSE 90; TEMP 98; O2SAT 92
[2018-05-19] MEDS: Sertraline 50 MG Tablet PO SCH (09:18)
[2018-05-19] MEDS: amLODIPine 5 MG Tablet PO SCH (09:18)
[2018-05-19] MEDS: Potassium Bicarbonate 25 MEQ Effervescent Tablet PO SCH (09:18)
[2018-05-19] MEDS: Senna/Docusate Sodium 8.6/50 MG Tablet PO SCH (09:19)
--- NOTE | 2018-05-19 10:49 | P.PN ---
Subjective Interval history: In nad No events overnight No more bleeding Tolerates food Physical Exam Vital signs: Vital Signs 05/18/18 12:00 05/18/18 16:00 05/18/18 20:00 Temperature 98.0 F 97.5 F L 98.3 F Pulse Rate 119 H 115 H 99 H Respiratory Rate 17 20 17 Blood Pressure 135/74 142/77 H 97/49 L Pulse Oximetry 95 95 96 05/19/18 00:00 05/19/18 04:00 Temperature 97.4 F L 98 F Pulse Rate 93 H 90 Respiratory Rate 17 17 Blood Pressure 114/63 122/71 Pulse Oximetry 93 L 92 L Intake & Output 05/18/18 05/19/18 05/19/18 18:59 06:59 18:59 Intake Total 600 / 600 120 / 120 Balance 600 / 600 120 / 120 Weight 61.2 kg Intake: Oral 600 / 600 120 / 120 Other: # Voids 4 12 Date of Last Bowel Movement 05/18/18 05/18/18 # Bowel Movements 5 Narrative: GENERAL: Very pleasant elderly white female in no acute distress. HEENT: PERRLA, EOMI. No scleral icterus or conjunctival pallor. No lid lag or facial droop. CARDIOVASCULAR: Regular rate and rhythm. No obvious murmurs to auscultation. No chest tenderness to palpation. RESPIRATORY: No obvious rhonchi or wheezing. Clear to auscultation. Breath sounds equal bilaterally. GASTROINTESTINAL: Abdomen soft, non-tender, nondistended. BS normal. MUSCULOSKELETAL: Extremities without clubbing, cyanosis, or edema. No obvious deformities. NEUROLOGICAL: Awake, alert and oriented x4. No focal neurologic deficits. Moving both upper and lower extremities spontaneously. Results - Labs CBC & Chem 7: 05/17/18 06:35 05/17/18 06:35 - Imaging Impressions Mesenteric Arteriogram 05/16/18 00:00 CONCLUSION: 1. Three vessel mesenteric angiography demonstrates no evidence for active hemorrhage at this time. - Procedures COLONOSCOPY 05-13 SUSPECTED DIVERTICULAR BLEEDING-POOR BOWEL PREP INTERNAL AND EXTERNAL HEMORRHOIDS S/p CT angio by IR 05/16 Mesenteric angio does not demonstrate active bleeding. Very small caliber DALE but was able to canulate. No bleeding in DALE territory at this time. Assessment and Plan - Assessment (1) GI bleed Code(s): K92.2 - Gastrointestinal hemorrhage, unspecified Status: Acute (2) Anemia Code(s): D64.9 - Anemia, unspecified Status: Acute (3) Pancreatic mass Code(s): K86.9 - Disease of pancreas, unspecified Status: Acute (4) DNR (do not resuscitate) Code(s): Z66 - Do not resuscitate Status: Acute - Plan 1. GI Bleed: acute onset rectal bleeding, h/o GI Bleed from Diverticulosis, Hemoccult + on exam, currently on Protonix gtt, NPO, IVF, GI Consult for further eval/intervention. --SUSPECTED DIVERTICULAR BLEEDING- 2. Anemia: Hgb 9.3, no previous labs for comparison, recheck Hgb/Hct, transfuse as needed. - TRANSFUSED 2UNITS PRBCs NM Bleeding scan (+) --> GI bleed beginning in the left upper quadrant thought to be in the splenic flexure region of the colon. IR consulted for CT angiogram with embolization S/p CT angio by IR 05/16 Mesenteric angio does not demonstrate active bleeding. Very small caliber DALE but was able to canulate. No bleeding in DALE territory at this time. EUS to be done outpatient per GI Cleared by GI , bleedign stabilized, tolerates diet 3. Pancreatic Mass: CT Abd/Pelvis w/ questionable pancreatic mass, recommendation for MRI, will obtain MRI Abd for further evaluation. --MRI SHOWS ABNORMAL PANCREAS 4. DNR: Code Status confirmed with patient, agreeable to transfusion if needed , however does not want intubation/resuscitation. 5. DVT Prophylaxis: Pharmacologic contraindication in light of GI Bleed 6. Social work for DC planning as needed. ATIVAN PRIOR TO MRI -CONTINUE ALPRAZOLAM AND SERTRALINE HYPERTENSION CONTINUE AMLODIPINE ANEMIA WILL TRANSFUSED 2 UNITS PRBC Monitor H.H HYPOKALEMIA WILL REPLACE WILL RECHECK HEMOGLOBIN AT NOON WILL NEED HHC AT DC AM LABS DW RN AND PT AND GI FOR COLONOSCOPY TOMORROW DC WHEN CLEARED BY GI FOR DC Code Status: DNR Discussed Condition With: Patient, nurse, case management Discharge Planning: Improved,cleared by GI and bleedign stabilized, tolerates food, no more bleeding. Patient wants to go to SNF as she lives alone and can't take care of herself. PT is ff. CM is also ff. Patient is DC to SNF in stable conditin to follow up as OP with PCP and consultants.
[2018-05-19] MEDS: ALPRAZolam 0.5 MG Tablet PO PRN (11:14)
--- NOTE | 2018-05-19 18:28 | P.DS ---
Date of admission: 05/13/18 14:19 Primary care physician: Jaswinder Roberson DO Brief History from admission: This is a 77-year-old female with a PMH of Anxiety, Diverticulosis, h/o GI Bleed and HTN who was brought to the ER by EMS for acute onset of rectal bleeding starting earlier this evening. Notes associated lightheadedness/ dizziness. Upon EMS arrival, noted to be hypotensive w/ BP 70's, good response to IVF, BP 140's while in ER. Denies nausea, vomiting or diarrhea. On arrival , BP 143/75, HR 81, O2 sat 98% on RA, Afebrile. Hemoglobin 9.5, no previous labs for comparison. INR 1.1. Chemistry unremarkable except for GFR 58. Troponin negative. CT Abdomen/Pelvis considerable stool throughout the colon especially the rectum, possible ill-defined mass pancreatic tail with recommendation for MRI of the abdomen renal cysts, bladder stone, possible mild cystitis. Hemoccult + on exam. Of note, pt relays that she wishes to be a DNR , is agreeable to transfusion in needed, but does not want resuscitation or intubation. DS: Diagnosis - Discharge Diagnosis (1) GI bleed Status: Acute (2) Anemia Status: Acute (3) Pancreatic mass Status: Acute (4) DNR (do not resuscitate) Status: Acute DS: Medications - Discharge Medications Prescriptions: alprazolam 0.5 mg PO BID PRN #7 tab PRN Reason: Anxiety DS: Summary Hospital Course: 1. GI Bleed: acute onset rectal bleeding, h/o GI Bleed from Diverticulosis, Hemoccult + on exam, currently on Protonix gtt, NPO, IVF, GI Consult for further eval/intervention. --SUSPECTED DIVERTICULAR BLEEDING- 2. Anemia: Hgb 9.3, no previous labs for comparison, recheck Hgb/Hct, transfuse as needed. - TRANSFUSED 2UNITS PRBCs NM Bleeding scan (+) --> GI bleed beginning in the left upper quadrant thought to be in the splenic flexure region of the colon. IR consulted for CT angiogram with embolization S/p CT angio by IR 05/16 Mesenteric angio does not demonstrate active bleeding. Very small caliber DALE but was able to canulate. No bleeding in DALE territory at this time. EUS to be done outpatient per GI Cleared by GI , bleedign stabilized, tolerates diet 3. Pancreatic Mass: CT Abd/Pelvis w/ questionable pancreatic mass, recommendation for MRI, will obtain MRI Abd for further evaluation. --MRI SHOWS ABNORMAL PANCREAS 4. DNR: Code Status confirmed with patient, agreeable to transfusion if needed , however does not want intubation/resuscitation. 5. DVT Prophylaxis: Pharmacologic contraindication in light of GI Bleed 6. Social work for DC planning as needed. ATIVAN PRIOR TO MRI -CONTINUE ALPRAZOLAM AND SERTRALINE HYPERTENSION CONTINUE AMLODIPINE ANEMIA WILL TRANSFUSED 2 UNITS PRBC Monitor H.H HYPOKALEMIA WILL REPLACE WILL RECHECK HEMOGLOBIN AT NOON WILL NEED HHC AT DC AM LABS DW RN AND PT AND GI FOR COLONOSCOPY TOMORROW DC WHEN CLEARED BY GI FOR DC Code Status: DNR Discussed Condition With: Patient, nurse, case management Discharge Planning: Improved,cleared by GI and bleedign stabilized, tolerates food, no more bleeding. Patient wants to go to SNF as she lives alone and can't take care of herself. PT is ff. CM is also ff. Patient is DC to SNF in stable conditin to follow up as OP with PCP and consultants. - Time Spent with Patient Total time spent providing and/or coordinating discharge services: Greater than 30 minutes - Quality: VTE Deep Vein Thrombosis/Pulmonary Embolism Present on Admission: No Exam Vital signs: Vital Signs 05/18/18 20:00 05/19/18 00:00 05/19/18 04:00 Temperature 98.3 F 97.4 F L 98 F Pulse Rate 99 H 93 H 90 Respiratory Rate 17 17 17 Blood Pressure 97/49 L 114/63 122/71 Pulse Oximetry 96 93 L 92 L 05/19/18 09:00 Temperature Pulse Rate 90 Respiratory Rate Blood Pressure Pulse Oximetry Intake & Output 05/18/18 05/19/18 05/19/18 18:59 06:59 18:59 Intake Total 600 / 600 120 / 120 Balance 600 / 600 120 / 120 Weight 61.2 kg Intake: Oral 600 / 600 120 / 120 Other: # Voids 4 12 Date of Last Bowel Movement 05/18/18 05/18/18 05/19/18 # Bowel Movements 5 Narrative: GENERAL: Very pleasant elderly white female in no acute distress. HEENT: PERRLA, EOMI. No scleral icterus or conjunctival pallor. No lid lag or facial droop. CARDIOVASCULAR: Regular rate and rhythm. No obvious murmurs to auscultation. No chest tenderness to palpation. RESPIRATORY: No obvious rhonchi or wheezing. Clear to auscultation. Breath sounds equal bilaterally. GASTROINTESTINAL: Abdomen soft, non-tender, nondistended. BS normal. MUSCULOSKELETAL: Extremities without clubbing, cyanosis, or edema. No obvious deformities. NEUROLOGICAL: Awake, alert and oriented x4. No focal neurologic deficits. Moving both upper and lower extremities spontaneously. Results Procedures completed during hospitalization: COLONOSCOPY 05-13 SUSPECTED DIVERTICULAR BLEEDING-POOR BOWEL PREP INTERNAL AND EXTERNAL HEMORRHOIDS S/p CT angio by IR 05/16 Mesenteric angio does not demonstrate active bleeding. Very small caliber DALE but was able to canulate. No bleeding in DALE territory at this time. - Impressions ITS Impressions Abdomen MRI 05/12/18 00:00 CONCLUSION: 1. Dilatation of the pancreatic duct from tail to ampulla with mild prominence uncinate process without focal mass. 2. Bilateral renal cyst 3. No adenopathy 4. No hepatic mass. 5. Endoscopic ultrasound could be used to further evaluate the pancreas. Abdomen/Pelvis CT 05/12/18 00:56 CONCLUSION: 1. No obstruction or acute inflammatory changes are seen of the gastrointestinal tract. Considerable stool throughout the colon, especially the rectum. There is mild diverticulosis of the colon without perceptible diverticulitis. 2. Questionable ill-defined mass of the pancreatic tail. There is also diffuse pancreatic duct dilatation of uncertain etiology. Multiphasic MRI of the abdomen with and without contrast recommended. 3. A few scattered small, benign-appearing cysts of the liver. Relatively large but benign-appearing cysts of each kidney. 4. Bladder stones and suspected mild cystitis in the proper clinical setting. Please correlate clinically and with urinalysis. 5. Moderate to large hiatal hernia. Chest X-Ray 05/12/18 00:56 CONCLUSION: Mild bibasilar atelectasis. Hiatal hernia. GI Bleed Scan Nuclear Medicine 05/15/18 00:00 CONCLUSION: GI bleed beginning in the left upper quadrant thought to be in the splenic flexure region of the colon. Mesenteric Arteriogram 05/16/18 00:00 CONCLUSION: 1. Three vessel mesenteric angiography demonstrates no evidence for active hemorrhage at this time. Discharge Plan - Discharge Disposition Patient Disposition: Discharge to SNF - Discharge Condition Condition: Stable - Discharge Order Discharge Orders: Discharge Order (Routine); Ordered 05/18/18 Ordered By: Lissy Zayas - Discharge Details Anticipated Discharge Date: 05/18/18 - Physicians Team Primary Care Provider: Jaswinder Roberson Attending Provider: Lissy Zayas Other Providers: Karla Oliver MD ; [facility],Agency
== END 2018-05-19 14:04 ==
LOC: NEDA 00:26 → NEPE 00:26 → NEPGCP 07:15 → N07 05-15 19:20
PROVIDERS: ADMIT Hospitalist; ATTEND Hospitalist
PROC: COLONOS (2018-05-13 10:50)

== ENCOUNTER 2018-06-11 12:58 | Inpatient (IN) ==
[2018-06-11] MEDS ORDERED: Sod Chloride 0.9% Inj 1,000 ML IV.SIG ONE (13:11)
--- NOTE | 2018-06-11 13:18 | ED ---
HPI General Chief complaint: Weakness Stated complaint: Weakness/SOB Time Seen by Provider: 06/11/18 13:02 Source: patient, RN notes reviewed and old records reviewed Mode of arrival: ambulatory Limitations: no limitations History of Present Illness HPI Narrative: 77 year old female presents to the emergency department via EMS for evaluation of generalized weakness, shortness of breath, productive cough. Patient was discharged from the hospital on May 19, 2018 after having a GI bleed. She was discharged [facility] for rehab. She was discharged there approximately 5 days ago according to the patient. She states she felt fine upon discharge, but in the last 2 days she has become generally weak, difficulty ambulating with shortness of breath and productive cough. She has no known fevers. She denies chest pain. No abdominal pain. Nausea, vomiting, diarrhea. She has past medical history of Anxiety, Diverticulosis, h/ o GI Bleed and HTN. When reading notes from last visit, also. She may have a possible pancreatic mass. Patient is not on anticoagulants. She denies any history of CHF or COPD. She denies any history of pneumonia. Moderate severity. According to EMS, her oxygen saturation was 85% on room air upon their arrival. Complaint: generalized weakness Onset (ago): day(s) (2) Duration: constant Location: generalized Severity: moderate Relieving factors: none Exacerbating factors: none Associated symptoms: shortness of breath and other (productive cough) Related Data Home Medications Medication Instructions Recorded Confirmed amlodipine 10 mg PO DAILY 05/12/18 06/11/18 sertraline 25 mg PO DAILY 05/12/18 06/11/18 Previous Rx's Medication Instructions Recorded alprazolam 0.5 mg PO BID PRN #7 tab 05/18/18 Allergies Allergy/AdvReac Type Severity Reaction Status Date / Time No Known Allergies Allergy Verified 06/11/18 13:13 Review of Systems ROS: all other systems reviewed are negative [facility] Family History Family History Other Patient denies significant medical history Social History Social History Substance History: No History of Abuse Second Hand Smoke Exposure: No Smoking Status: Former smoker Tobacco Type: Cigarettes How Often Do You Have a Drink Containing Alcohol: Never Recent Travel in [facility] within the Last 8 Weeks: No Recent Out of Country Travel within the Last 8 Weeks: No Exam Narrative Exam Narrative: GENERAL: Well-nourished, well-developed female patient, afebrile. SKIN: Focused skin assessment warm/dry. HEAD: Normocephalic. Atraumatic. EYES: No scleral icterus. No injection or drainage. NECK: Supple, trachea midline. No JVD or lymphadenopathy. CARDIOVASCULAR: Regular rate and rhythm without murmurs, gallops, or rubs. RESPIRATORY: Breath sounds equal bilaterally. No accessory muscle use. Patient with rhonchi and slight expiratory wheezes noted. GASTROINTESTINAL: Abdomen soft, non-tender, nondistended. MUSCULOSKELETAL: No cyanosis, or edema. BACK: Nontender without obvious deformity. No CVA tenderness. Course Initial Documented Vital Signs Temperature 98.3 F 06/11/18 13:09 Pulse Rate 89 06/11/18 13:09 Respiratory Rate 20 06/11/18 13:09 Blood Pressure 133/72 06/11/18 13:09 Pulse Oximetry 94 L 06/11/18 13:09 Last Documented Vital Signs Temperature 97.5 F L 06/13/18 04:00 Pulse Rate 73 06/13/18 04:00 Respiratory Rate 20 06/13/18 04:00 Blood Pressure 120/58 L 06/13/18 04:00 Pulse Oximetry 96 06/13/18 04:00 Medical Decision Making DARRYN Attestation DARRYN supervised visit: Yes Attestation: I, Dr. Valentin, have reviewed the advance practice practitioner's documentation and am in agreement, met with the patient face to face, made the diagnosis, and the medical decision making was done by me. *My assessment and Findings: This patient is awake and alert and able to give her own history. She is able to speak without significant dyspnea. Please see Ca Guzmán NP's note for a more detailed H&P, final diagnosis and disposition MDM Narrative Medical decision making narrative: 77-year-old female presents to the emergency department via EMS for evaluation of generalized weakness, shortness of breath, productive cough. Her oxygen saturation is 85% upon their arrival. She has no known respiratory history. EKG, CBC, CMP, CK, troponin, lactic acid, magnesium , PTT, PT/INR, UA, chest x-ray, blood cultures 2 are ordered and pending. Patient is given normal saline 1 L IV bolus, DuoNeb 1. EKG shows sinus rhythm, heart rate 82, no acute ST changes. CBC shows anemia hemoglobin 10.8, hematocrit 33.1. CMP shows slight hypokalemia 3.3, hyperglycemia 121. CK is 30. Troponin is less than 0.02. Lactic acid is 1.0. Magnesium is 2.2. PTT is 23.3. PT/INR is 10.5/1.0. UA shows moderate occult blood, moderate leukocyte esterase, many WBC clumps, moderate bacteria, however urine is contaminated with 22 squamous epithelial cells. Chest x-ray shows stable examination demonstrating senescent changes with mild bibasilar airspace disease, presumably atelectasis, hiatal hernia. CTA pulmonary is ordered and pending. CTA shows no PE, suspected material within the right lower lobe airway suggesting aspiration, moderate to large hiatal hernia. Patient is started on azithromycin 500 mg IV, Rocephin 2 g IV, Flagyl 500 mg IV. Patient will be admitted for further evaluation. Dr. Rae accepted admission. Medical Screen Exam Complete: Yes Emergency Medical Condition: Yes Differential Diagnosis Differential Diagnosis: Pneumonia versus electrolyte abnormality versus dehydration versus UTI versus sepsis versus ACS versus anemia Medical Records Medical records reviewed: Yes I reviewed the patient's medical records. Lab Data Result diagrams: 06/12/18 06:23 06/12/18 06:23 Lab Results 06/11/18 06/11/18 06/11/18 Range/Units 13:20 13:20 13:20 WBC 7.8 (4.0-11.0) th/mm3 RBC 3.86 L (4.00-5.30) mil/mm3 Hgb 10.8 L (11.6-15.3) gm/dL Hct 33.1 L (35.0-46.0) % MCV 85.8 (80.0-100.0) fL MCH 28.0 (27.0-34.0) pg MCHC 32.6 (32.0-36.0) % RDW 14.5 (11.6-17.2) % Plt Count 404 D (150-450) th/mm3 MPV 8.4 (7.0-11.0) fL Neut % (Auto) 42.1 (16.0-70.0) % Lymph % (Auto) 38.0 (9.0-44.0) % Andrew % (Auto) 11.5 H (0.0-8.0) % Eos % (Auto) 7.6 H (0.0-4.0) % Baso % (Auto) 0.8 (0.0-2.0) % Neut # (Auto) 3.3 (1.8-7.7) th/mm3 Lymph # (Auto) 3.0 (1.0-4.8) th/mm3 Andrew # (Auto) 0.9 (0.0-0.9) th/mm3 Eos # (Auto) 0.6 H (0.0-0.4) th/mm3 Baso # (Auto) 0.1 (0.0-0.2) th/mm3 WBC Differential . Differential Comment Auto diff final PT 10.5 (9.8-11.6) sec INR 1.0 Ratio APTT 23.3 L (24.3-30.1) sec Sodium 142 (136-145) meq/L Potassium 3.3 L (3.5-5.1) meq/L Chloride 107 (98-107) meq/L Carbon Dioxide 25.6 (21.0-32.0) meq/L Anion Gap 9 (5-15) meq/L BUN 13 (7-18) mg/dL Creatinine 0.85 (0.50-1.00) mg/dL Estimated GFR 65 L (>89) mL/min Random Glucose 121 H (74-106) mg/dL Lactic Acid (0.4-2.0) mmol/L Calcium 8.9 (8.5-10.1) mg/dL Magnesium (1.5-2.5) mg/dL Total Bilirubin 0.2 (0.2-1.0) mg/dL AST 11 L (15-37) U/L ALT 13 (10-53) U/L Alkaline Phosphatase 65 (45-117) U/L Total Creatine Kinase (26-192) U/L Troponin I Less than 0.02 L (0.02-0.05) ng/mL Total Protein 7.5 (6.4-8.2) g/dL Albumin 3.0 L (3.4-5.0) g/dL Urine Color (Yellw/Straw) Urine Clarity (Clear) Urine pH (5.0-8.5) Ur Specific Ryan (1.002-1.035) Urine Protein (Neg-Trace) mg/dL Urine Glucose (UA) (Negative) mg/dL Urine Ketones (Negative) mg/dL Urine Occult Blood (Negative) Urine Nitrate (Negative) Urine Bilirubin (Negative) Urine Urobilinogen (Less than 2) mg/dL Ur Leukocyte Esterase (Negative) Urine RBC (0-3) /hpf Urine WBC (0-5) /hpf Urine WBC Clumps (None) Ur Squamous Epith Cells (0-5) /hpf Urine Bacteria (None) /hpf Urine Mucus (Occasional) /lpf Micro UA Comment Ur Microscopic Review Urine Culture Comments 06/11/18 06/11/18 06/11/18 Range/Units 13:20 13:25 15:09 WBC (4.0-11.0) th/mm3 RBC (4.00-5.30) mil/mm3 Hgb (11.6-15.3) gm/dL Hct (35.0-46.0) % MCV (80.0-100.0) fL MCH (27.0-34.0) pg MCHC (32.0-36.0) % RDW (11.6-17.2) % Plt Count (150-450) th/mm3 MPV (7.0-11.0) fL Neut % (Auto) (16.0-70.0) % Lymph % (Auto) (9.0-44.0) % Andrew % (Auto) (0.0-8.0) % Eos % (Auto) (0.0-4.0) % Baso % (Auto) (0.0-2.0) % Neut # (Auto) (1.8-7.7) th/mm3 Lymph # (Auto) (1.0-4.8) th/mm3 Andrew # (Auto) (0.0-0.9) th/mm3 Eos # (Auto) (0.0-0.4) th/mm3 Baso # (Auto) (0.0-0.2) th/mm3 WBC Differential Differential Comment PT (9.8-11.6) sec INR Ratio APTT (24.3-30.1) sec Sodium (136-145) meq/L Potassium (3.5-5.1) meq/L Chloride (98-107) meq/L Carbon Dioxide (21.0-32.0) meq/L Anion Gap (5-15) meq/L BUN (7-18) mg/dL Creatinine (0.50-1.00) mg/dL Estimated GFR (>89) mL/min Random Glucose (74-106) mg/dL Lactic Acid 1.0 (0.4-2.0) mmol/L Calcium (8.5-10.1) mg/dL Magnesium 2.2 (1.5-2.5) mg/dL Total Bilirubin (0.2-1.0) mg/dL AST (15-37) U/L ALT (10-53) U/L Alkaline Phosphatase (45-117) U/L Total Creatine Kinase 30 (26-192) U/L Troponin I (0.02-0.05) ng/mL Total Protein (6.4-8.2) g/dL Albumin (3.4-5.0) g/dL Urine Color Yellow (Yellw/Straw) Urine Clarity Turbid H (Clear) Urine pH 7.0 (5.0-8.5) Ur Specific Ryan 1.012 (1.002-1.035) Urine Protein 100 H (Neg-Trace) mg/dL Urine Glucose (UA) Negative (Negative) mg/dL Urine Ketones Negative (Negative) mg/dL Urine Occult Blood Moderate H (Negative) Urine Nitrate Negative (Negative) Urine Bilirubin Negative (Negative) Urine Urobilinogen Less than 2 (Less than 2) mg/dL Ur Leukocyte Esterase Moderate H (Negative) Urine RBC 122 H (0-3) /hpf Urine WBC (0-5) /hpf Urine WBC Clumps Many H (None) Ur Squamous Epith Cells 22 (0-5) /hpf Urine Bacteria Moderate H (None) /hpf Urine Mucus Many H (Occasional) /lpf Micro UA Comment Culture indicated Ur Microscopic Review Not Reportable Urine Culture Comments Culture indicated 06/12/18 06/12/18 Range/Units 06:23 06:23 WBC 5.0 (4.0-11.0) th/mm3 RBC 3.25 L (4.00-5.30) mil/mm3 Hgb 9.2 L (11.6-15.3) gm/dL Hct 27.7 L (35.0-46.0) % MCV 85.4 (80.0-100.0) fL MCH 28.2 (27.0-34.0) pg MCHC 33.0 (32.0-36.0) % RDW 14.7 (11.6-17.2) % Plt Count 333 (150-450) th/mm3 MPV 8.2 (7.0-11.0) fL Neut % (Auto) 36.5 (16.0-70.0) % Lymph % (Auto) 38.7 (9.0-44.0) % Andrew % (Auto) 15.3 H (0.0-8.0) % Eos % (Auto) 8.7 H (0.0-4.0) % Baso % (Auto) 0.8 (0.0-2.0) % Neut # (Auto) 1.8 (1.8-7.7) th/mm3 Lymph # (Auto) 1.9 (1.0-4.8) th/mm3 Andrew # (Auto) 0.8 (0.0-0.9) th/mm3 Eos # (Auto) 0.4 (0.0-0.4) th/mm3 Baso # (Auto) 0.0 (0.0-0.2) th/mm3 WBC Differential . Differential Comment Auto diff final PT (9.8-11.6) sec INR Ratio APTT (24.3-30.1) sec Sodium 145 (136-145) meq/L Potassium 3.6 (3.5-5.1) meq/L Chloride 113 H (98-107) meq/L Carbon Dioxide 25.7 (21.0-32.0) meq/L Anion Gap 6 (5-15) meq/L BUN 8 (7-18) mg/dL Creatinine 0.72 (0.50-1.00) mg/dL Estimated GFR 78 L (>89) mL/min Random Glucose 83 (74-106) mg/dL Lactic Acid (0.4-2.0) mmol/L Calcium 8.3 L (8.5-10.1) mg/dL Magnesium (1.5-2.5) mg/dL Total Bilirubin 0.4 (0.2-1.0) mg/dL AST 10 L (15-37) U/L ALT 10 (10-53) U/L Alkaline Phosphatase 60 (45-117) U/L Total Creatine Kinase (26-192) U/L Troponin I (0.02-0.05) ng/mL Total Protein 6.5 D (6.4-8.2) g/dL Albumin 2.5 L (3.4-5.0) g/dL Urine Color (Yellw/Straw) Urine Clarity (Clear) Urine pH (5.0-8.5) Ur Specific Ryan (1.002-1.035) Urine Protein (Neg-Trace) mg/dL Urine Glucose (UA) (Negative) mg/dL Urine Ketones (Negative) mg/dL Urine Occult Blood (Negative) Urine Nitrate (Negative) Urine Bilirubin (Negative) Urine Urobilinogen (Less than 2) mg/dL Ur Leukocyte Esterase (Negative) Urine RBC (0-3) /hpf Urine WBC (0-5) /hpf Urine WBC Clumps (None) Ur Squamous Epith Cells (0-5) /hpf Urine Bacteria (None) /hpf Urine Mucus (Occasional) /lpf Micro UA Comment Ur Microscopic Review Urine Culture Comments Imaging Data Radiologist's impression: Chest X-Ray 06/11/18 13:11 CONCLUSION: 1. Stable examination demonstrating senescent changes with mild bibasilar airspace disease, presumably atelectasis. 2. Hiatal hernia. Chest CTA 06/11/18 14:17 CONCLUSION: 1. Examination quality is less than optimal secondary to respiratory motion artifact. However, given this limitation no PE is identified. 2. Suspected material within the right lower lobe airways suggesting aspiration. 3. Moderate to large hiatal hernia. Discharge Plan Discharge Disposition Patient Disposition: 30 Still Patient Discharge Details Diagnosis: Pneumonia, Generalized weakness, Hypoxia Physicians Team ED Provider: Zoie Valentin ED Midlevel Provider: Ca Guzmán Primary Care Provider: Jaswinder Roberson Attending Provider: Reed Doty Other Providers: [facility],Insurance Status ED Status: Left Department Discharge Information Discharge Date/Time: 06/11/18 19:52
[2018-06-11 13:59] LABS: Baso # (Auto) 0.1 th/mm3 (0.0-0.2); Baso % (Auto) 0.8 % (0.0-2.0); Eos # (Auto) 0.6 th/mm3 (0.0-0.4); Eos % (Auto) 7.6 % (0.0-4.0); Hematocrit 33.1 % (35.0-46.0); Hemoglobin 10.8 gm/dL (11.6-15.3); Mean Corpuscular HGB Conc 32.6 % (32.0-36.0); Mean Corpuscular Volume 85.8 fL (80.0-100.0); Mean Platelet Volume 8.4 fL (7.0-11.0); Mono # (Auto) 0.9 th/mm3 (0.0-0.9); Mono % (Auto) 11.5 % (0.0-8.0); Neut # (Auto) 3.3 th/mm3 (1.8-7.7); Neut % (Auto) 42.1 % (16.0-70.0); Platelet Count 404 th/mm3 (150-450); Red Blood Count 3.86 mil/mm3 (4.00-5.30); Red Cell Distribution Width 14.5 % (11.6-17.2); White Blood Count 7.8 th/mm3 (4.0-11.0)
[2018-06-11 14:08] LABS: Activated Partial Thrombo Time 23.3 sec (24.3-30.1); Prothrombin Time 10.5 sec (9.8-11.6)
--- NOTE | 2018-06-11 14:10 | XR ---
EXAM DATE: 06/11/2018 1:11 PM EDT AGE/SEX: 77 years / Female INDICATIONS: Short of breath, cold for 3 days. CLINICAL DATA: This is the patient's initial encounter. Patient reports that signs and symptoms have been present for 3 days and indicates a pain score of 0/10. MEDICAL/SURGICAL HISTORY: Hypertension. Diverticulitis. anxiety, allergic rhinitis Hysterecto my. COMPARISON: [facility] – [place], [place], CHEST 1V SINGLE AP, 05/12/2018. . FINDINGS: Lungs are hyperexpanded with diffuse interstitial prominence. Mild bibasilar airspace disease similar to previous exam. Cardiomediastinal contours are stable. Redemonstration of hiatal hernia. Remainder of exam is unchanged. CONCLUSION: 1. Stable examination demonstrating senescent changes with mild bibasilar airspace disease, presumab ly atelectasis. 2. Hiatal hernia. Electronically signed by: Azam Multani MD 06/11/2018 2:08 PM EDT
[2018-06-11 14:17] LABS: Alanine Aminotransferase 13 U/L (10-53); Anion Gap 9 meq/L (5-15); Aspartate Aminotransferase 11 U/L (15-37); Blood Urea Nitrogen 13 mg/dL (7-18); Calcium 8.9 mg/dL (8.5-10.1); Carbon Dioxide 25.6 meq/L (21.0-32.0); Chloride 107 meq/L (98-107); Glomerular Filtration Rate 65 mL/min (>89); Glucose,Random 121 mg/dL (74-106); Potassium 3.3 meq/L (3.5-5.1); Sodium 142 meq/L (136-145)
[2018-06-11 14:18] LABS: Magnesium 2.2 mg/dL (1.5-2.5)
[2018-06-11 14:21] LABS: Alkaline Phosphatase 65 U/L (45-117); Total Protein 7.5 g/dL (6.4-8.2)
[2018-06-11 15:37] LABS: Bacteria,Urine Moderate /hpf; Bilirubin,Urine Negative (Negative); Clarity,Urine Turbid (Clear); Color,Urine Yellow (Yellw/Straw); Glucose,Urine (UA) Negative (Negative); Leukocyte Esterase,Urine Moderate (Negative); Mucus,Urine Many /lpf (Occasional); Nitrite,Urine Negative (Negative); Specific Gravity,Urine 1.012 (1.002-1.035); Squamous Epithelial Cell,Urine 22 /hpf (0-5)
--- NOTE | 2018-06-11 17:13 | CT ---
EXAM DATE: 06/11/2018 2:22 PM EDT AGE/SEX: 77 years / Female INDICATIONS: Shortness of breath. CLINICAL DATA: This is the patient's initial encounter. Patient reports that signs and symptoms have been present for 1 day and indicates a pain score of 3/10. MEDICAL/SURGICAL HISTORY: Hypertension. Pancreatic mass, GI bleed. Hysterectomy. RADIATION DOSE: 13.69 CTDI (mGy) COMPARISON: No prior exams available for comparison. TECHNIQUE: Volumetric scanning was performed using a multi-row detector CT scanner during bolus infu trice of 75 ml Omnipaque 350 (iohexol) nonionic water-soluble contrast as a single exam dose. The tim a was post processed with a variety of visualization algorithms including full volume maximum intensi ty projection and sliding thin slab reformation. Using automated exposure control and adjustment of the mA and/or kV according to patient size, radiation dose was kept as low as reasonably achievable t o obtain optimal diagnostic quality images. DICOM format image data is available electronically for review and comparison. FINDINGS: There is respiratory motion artifact resulting in less than ideal visualization of the pul monary arteries. Pulmonary Arteries: No filling defect is identified through the proximal segmental level pulmonary ar teries. Lungs: Detailed evaluation of the lungs is limited by the respiratory motion artifact. No consolidat ion or pneumothorax is identified. There appears to be material within the right lower lobe lobar and segmental bronchi suggesting aspiration. Compressive atelectasis is present in the left lower lobe a djacent to the tortuous descending thoracic aorta and hiatal hernia. Mediastinum: The heart and great vessels demonstrate no acute abnormality. No lymphadenopathy is vis ualized. There is coronary artery calcification and atherosclerotic disease of the aorta. The descend ing thoracic aorta is very tortuous. Pleurae: No pleural effusion or pleural thickening. Axillae: No lymphadenopathy. Musculoskeletal: No acute osseous abnormality is identified. There is accentuated thoracic kyphosis with multilevel degenerative change. Other: Visualized upper abdominal structures demonstrate no acute abnormality. There is a partially visualized fluid density structure posterior to the right lobe of the liver measuring 4 cm. A simple fluid density measurements and most likely represents a partially visualized exophytic cortical renal cyst. There is a moderate to large hiatal hernia. CONCLUSION: 1. Examination quality is less than optimal secondary to respiratory motion artifact. However, given this limitation no PE is identified. 2. Suspected material within the right lower lobe airways suggesting aspiration. 3. Moderate to large hiatal hernia. Electronically signed by: Gerard Tate MD 06/11/2018 5:11 PM EDT
[2018-06-11] MEDS ORDERED: Azithromycin Inj 500 MG in Sodium Chlor 0.9% Inj 250 ML IV.SIG STA (17:18)
[2018-06-11] MEDS ORDERED: Acetaminophen 325 MG Tablet PO PRN (18:15)
[2018-06-11] MEDS ORDERED: Enoxaparin Inj 30 MG/0.3 ML Syringe SQ SCH (18:15)
--- NOTE | 2018-06-11 18:42 | P.HPIM ---
History of Present Illness Primary Care Physician: Jaswinder Roberson DO Chief Complaint: Weakness History of Present Illness: The patient is a 77-year-old female with past medical history of GI bleed and hypertension who is presenting to the hospital with weakness and cough. The patient says that earlier this month she came to the hospital and was worked up for a GI bleed. She says they were unable to find the location and cause of the bleed. She has not noticed any further bleeding since being in the hospital. She was discharged to a detention and eventually went home. The patient says that over the past 3-4 days she has experienced increased weakness , cough, stuffy nose, feeling tired and overall just feeling lousy. She says she has had a decreased appetite over the past 4 days. She has been having bowel movements. She is complaining of shortness of breath. She says that first her cough was dry but it has since turned productive. She measured a temperature of 99 at home. Inpatient Certification: I certify that the inpatient services were ordered in accordance with Medicare regulations governing the order. 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 - Medical History Medical History: Medical History (Last Updated 06/11/18 @ 18:40 by Mayco Rae DO) Depression Allergic rhinitis Anxiety Diverticulosis GI bleed Hypertension - Surgical History Surgical History: Surgical History (Last Reviewed 06/11/18 @ 18:40 by Mayco Rae DO) History of partial hysterectomy - Family History Family History: Family History (Last Updated 06/11/18 @ 18:40 by Mayco Rae DO) Other Patient denies significant medical history - Social History I have reviewed the patient's Social History: Yes - Tobacco History Second Hand Smoke Exposure: No Smoking Status: Never smoker - Alcohol History How Often Do You Have a Drink Containing Alcohol: Never - Substance Use History Substance History: No History of Abuse - Travel History Recent Travel in the [facility] Within the Last 8 Weeks: No Recent Travel Out of the Country Within the Last 8 Weeks: No - Immunization History Tetanus Immunization: <5 Years Hx Influenza Vaccine This Season: No Medications and Allergies Active Medications: Active Medications Acetaminophen (Tylenol) 650 mg PO Q4H PRN PRN Reason: Temp > 100.4 Alprazolam (Xanax) 0.5 mg PO BID PRN PRN Reason: Anxiety Amlodipine Besylate (Norvasc) 10 mg PO DAILY SATURNINO Enoxaparin Sodium (Lovenox Inj) 30 mg SQ Q24H SATURNINO Ceftriaxone Sodium 2,000 mg/ (Sodium Chloride) 100 mls @ 200 mls/hr IV.SIG STAT STA Stop: 06/11/18 17:47 Last Infusion: 06/11/18 18:00 Dose: Infused Metronidazole/Sodium Chloride (Flagyl 500 Mg Inj) 100 mls @ 100 mls/hr IV.SIG STAT STA Stop: 06/11/18 18:17 Last Admin: 06/11/18 18:10 Dose: 100 mls/hr Azithromycin 500 mg/ Sodium (Chloride) 250 mls @ 250 mls/hr IV.SIG STAT STA Stop: 06/11/18 18:17 Sodium Chloride (Ns Inj) 1,000 mls @ 100 mls/hr IV.CONT .Q10H SATURNINO Stop: 06/12/18 14:14 Piperacillin/Tazobactam/Dextrose (Zosyn 4.5 Gm Premix) 4.5 gm in 100 mls @ 200 mls/hr IV.SIG Q6H SATURNINO Lactobacillus Acidophilus (Lactinex) 1 tab PO TID SATURNINO Potassium Chloride (K-Dur) 40 meq PO ONCE ONE Stop: 06/11/18 18:14 Sertraline HCl (Zoloft) 25 mg PO DAILY [facility] Allergies Allergy/AdvReac Type Severity Reaction Status Date / Time No Known Allergies Allergy Verified 06/11/18 13:13 Home Medications Medication Instructions Recorded Confirmed Type amlodipine 10 mg PO DAILY 05/12/18 06/11/18 History sertraline 25 mg PO DAILY 05/12/18 06/11/18 History Exam Vital signs: Vital Signs 06/11/18 13:09 06/11/18 13:16 06/11/18 13:18 Temperature 98.3 F Pulse Rate 89 93 H 92 H Respiratory Rate 20 20 18 Blood Pressure 133/72 133/72 Pulse Oximetry 94 L 95 09/26/18 15:00 06/11/18 17:20 06/11/18 18:12 Temperature Pulse Rate 84 80 90 Respiratory Rate 20 18 20 Blood Pressure 131/77 135/72 142/72 H Pulse Oximetry 95 94 L 94 L Intake & Output 06/10/18 06/11/18 06/11/18 18:59 06:59 18:59 Intake Total 1100 / 1100 Balance 1100 / 1100 Weight 61.235 kg Intake: IV 1100 / 1100 NS Inj 1,000 ML @ Wide Open IV. 1000 / 1000 SIG BOLUS ONE Rx#:[id number] Rocephin Inj 2,000 MG In NS Inj 100 / 100 100 ML @ 200 mls/hr IV.SIG STAT STA Rx#:[id number] Narrative: GENERAL: Well-nourished, well-developed female patient, afebrile. SKIN: Focused skin assessment warm/dry. HEAD: Normocephalic. Atraumatic. EYES: No scleral icterus. No injection or drainage. NECK: Supple, trachea midline. No JVD or lymphadenopathy. CARDIOVASCULAR: Regular rate and rhythm without murmurs, gallops, or rubs. RESPIRATORY: Diffuse rhonchi. GASTROINTESTINAL: Abdomen soft, non-tender, nondistended. MUSCULOSKELETAL: No cyanosis, or edema. BACK: Nontender without obvious deformity. No CVA tenderness. NEURO: No gross deficits. Results - Labs CBC & Chem 7: 06/11/18 13:20 06/11/18 13:20 Labs: Short CBC 06/11/18 Range/Units 13:20 WBC 7.8 (4.0-11.0) th/mm3 Hgb 10.8 L (11.6-15.3) gm/dL Hct 33.1 L (35.0-46.0) % Plt Count 404 D (150-450) th/mm3 BMP 06/11/18 13:20 Sodium 142 Potassium 3.3 L Chloride 107 Carbon Dioxide 25.6 BUN 13 Creatinine 0.85 Calcium 8.9 Cardiac Enzymes 06/11/18 06/11/18 Range/Units 13:20 13:20 Total Creatine Kinase 30 (26-192) U/L Troponin I Less than 0.02 L (0.02-0.05) ng/mL Liver Function 06/11/18 Range/Units 13:20 Total Bilirubin 0.2 (0.2-1.0) mg/dL AST 11 L (15-37) U/L ALT 13 (10-53) U/L Alkaline Phosphatase 65 (45-117) U/L Albumin 3.0 L (3.4-5.0) g/dL Urine 06/11/18 Range/Units 15:09 Urine Color Yellow (Yellw/Straw) Urine Clarity Turbid H (Clear) Urine pH 7.0 (5.0-8.5) Ur Specific [place] 1.012 (1.002-1.035) Urine Protein 100 H (Neg-Trace) mg/dL Urine Glucose (UA) Negative (Negative) mg/dL - Imaging Impressions Chest X-Ray 06/11/18 13:11 CONCLUSION: 1. Stable examination demonstrating senescent changes with mild bibasilar airspace disease, presumably atelectasis. 2. Hiatal hernia. Chest CTA 06/11/18 14:17 CONCLUSION: 1. Examination quality is less than optimal secondary to respiratory motion artifact. However, given this limitation no PE is identified. 2. Suspected material within the right lower lobe airways suggesting aspiration. 3. Moderate to large hiatal hernia. Caprini VTE Risk Assessment Caprini VTE Risk Assessment: Moderate/High Risk (score >= 2) Caprini Risk Assessment Model: Point Value = 1 Point Value = 2 Point Value = 3 Point Value = 5 Age 41-60 Minor surgery BMI > 25 kg/m2 Swollen legs Varicose veins or History of unexplained or recurrent spontaneous Oral contraceptives or hormone replacement Sepsis (< 1 month) Serious lung disease, including pneumonia (< 1 month) Abnormal pulmonary function Acute myocardial infarction Congestive heart failure (< 1 month) History of inflammatory bowel disease Medical patient at bed rest Age 61-74 Arthroscopic surgery Major open surgery (> 45 min) Laparoscopic surgery (> 45 min) Malignancy Confined to bed (> 72 hours) Immobilizing plaster cast Central venous access Age >= 75 History of VTE Family history of VTE Factor V Leiden Prothrombin [id number] Lupus anticoagulant Anticardiolipin antibodies Elevated serum homocysteine Heparin-induced thrombocytopenia Other congenital or acquired thrombophilia Stroke (< 1 month) Elective arthroplasty Hip, pelvis, or leg fracture Acute spinal cord injury (< 1 month) Prophylaxis Regimen: Total Risk Factor Score Risk Level Prophylaxis Regimen 0-1 Low Early ambulation 2 Moderate Order ONE of the following: *Sequential Compression Device (SCD) *Heparin 5000 units SQ BID 3-4 Higher Order ONE of the following medications: *Heparin 5000 units SQ TID *Enoxaparin/Lovenox 40 mg SQ daily (WT < 150 kg, CrCl > 30 mL/min) *Enoxaparin/Lovenox 30 mg SQ daily (WT < 150 kg, CrCl > 10-29 mL/min) *Enoxaparin/Lovenox 30 mg SQ BID (WT < 150 kg, CrCl > 30 mL/min) AND/OR *Sequential Compression Device (SCD) 5 or more Highest Order ONE of the following medications: *Heparin 5000 units SQ TID (Preferred with Epidurals) *Enoxaparin/Lovenox 40 mg SQ daily (WT < 150 kg, CrCl > 30 mL/min) *Enoxaparin/Lovenox 30 mg SQ daily (WT < 150 kg, CrCl > 10-29 mL/min) *Enoxaparin/Lovenox 30 mg SQ BID (WT < 150 kg, CrCl > 30 mL/min) AND *Sequential Compression Device (SCD) Assessment and Plan - Plan Aspiration pneumonia The pt presents with weakness, cough and shortness of breath. Chest CT: Suspected material within the right lower lobe airways suggesting aspiration. -oxygen and nebs as needed. -start IV Zosyn. -sputum culture and blood cultures pending. -PT/OT. -incentive spirometry. Hypokalemia S/t decreased PO intake. -replete and monitor. -telemetry. GIB No bleeding since previous hospitalization. Hgb is stable. -follow CBC. UTI UA indicative of infection. -continue Zosyn. -follow urine culture. PPx: SCDs
[2018-06-11] MEDS: ALPRAZolam 0.5 MG Tablet PO PRN (21:15)
[2018-06-11] MEDS: Piperacil/Tazo 4.5 GM Premix 4.5 GM/100 ML BAG IV.SIG SCH (22:18)
[2018-06-11] MEDS: Sod Chloride 0.9% Inj 1,000 ML IV.CONT SCH (22:19)
[2018-06-12] MEDS: Piperacil/Tazo 4.5 GM Premix 4.5 GM/100 ML BAG IV.SIG SCH ×4 (03:27→21:13)
[2018-06-12] MEDS: Sod Chloride 0.9% Inj 1,000 ML IV.CONT SCH ×2 (06:20→08:19)
[2018-06-12 07:52] LABS: Baso % (Auto) 0.8 % (0.0-2.0); Eos # (Auto) 0.4 th/mm3 (0.0-0.4); Eos % (Auto) 8.7 % (0.0-4.0); Hematocrit 27.7 % (35.0-46.0); Hemoglobin 9.2 gm/dL (11.6-15.3); Lymph # (Auto) 1.9 th/mm3 (1.0-4.8); Lymph % (Auto) 38.7 % (9.0-44.0); Mean Corpuscular Hemoglobin 28.2 pg (27.0-34.0); Mean Corpuscular Volume 85.4 fL (80.0-100.0); Mean Platelet Volume 8.2 fL (7.0-11.0); Mono # (Auto) 0.8 th/mm3 (0.0-0.9); Mono % (Auto) 15.3 % (0.0-8.0); Neut # (Auto) 1.8 th/mm3 (1.8-7.7); Neut % (Auto) 36.5 % (16.0-70.0); Platelet Count 333 th/mm3 (150-450); Red Blood Count 3.25 mil/mm3 (4.00-5.30); Red Cell Distribution Width 14.7 % (11.6-17.2)
[2018-06-12 08:17] LABS: Alanine Aminotransferase 10 U/L (10-53); Albumin 2.5 g/dL (3.4-5.0); Anion Gap 6 meq/L (5-15); Aspartate Aminotransferase 10 U/L (15-37); Blood Urea Nitrogen 8 mg/dL (7-18); Calcium 8.3 mg/dL (8.5-10.1); Carbon Dioxide 25.7 meq/L (21.0-32.0); Chloride 113 meq/L (98-107); Glomerular Filtration Rate 78 mL/min (>89); Glucose,Random 83 mg/dL (74-106); Potassium 3.6 meq/L (3.5-5.1); Sodium 145 meq/L (136-145)
[2018-06-12] MEDS: ALPRAZolam 0.5 MG Tablet PO PRN ×2 (08:17→20:04)
[2018-06-12] MEDS: Lactobacillus Acidophilus/L. Spores Tablet PO SCH ×3 (08:17→17:32)
[2018-06-12] MEDS: amLODIPine 5 MG Tablet PO SCH (08:17)
[2018-06-12] MEDS: Sertraline 50 MG Tablet PO SCH (08:17)
[2018-06-12 08:19] LABS: Alkaline Phosphatase 60 U/L (45-117); Total Protein 6.5 g/dL (6.4-8.2)
--- NOTE | 2018-06-12 08:41 | P.PNIM ---
Subjective Interval history: f/u; aspiration pneumonia in no acute distress. says that her sob is slightly better today. has urinary frequency. no fever. Physical Exam Vital signs: Vital Signs 06/11/18 13:09 06/11/18 13:16 06/11/18 13:18 Temperature 98.3 F Pulse Rate 89 93 H 92 H Respiratory Rate 20 20 18 Blood Pressure 133/72 133/72 Pulse Oximetry 94 L 95 06/11/18 15:00 06/11/18 17:20 06/11/18 18:12 Temperature Pulse Rate 84 80 90 Respiratory Rate 20 18 20 Blood Pressure 131/77 135/72 142/72 H Pulse Oximetry 95 94 L 94 L 06/11/18 20:00 06/12/18 00:00 06/12/18 04:00 Temperature 97.9 F 98.2 F 98.5 F Pulse Rate 86 93 H 85 Respiratory Rate 15 22 Blood Pressure 114/67 106/60 112/70 Pulse Oximetry 91 L 92 L 93 L Intake & Output 06/11/18 06/12/18 06/12/18 18:59 06:59 18:59 Intake Total 1100 / 1100 1190 / 1190 Balance 1100 / 1100 1190 / 1190 Weight 61.235 kg 57.4 kg Intake: IV 1100 / 1100 550 / 550 Azithromycin Inj 500 MG In NS 250 / 250 Inj 250 ML @ 250 mls/hr IV.SIG STAT STA Rx#:[id number] Zosyn 4.5 GM Premix 4.5 gm In 200 / 200 100 ml @ 200 mls/hr IV.SIG Q6H SATURNINO Rx#:[id number] NS Inj 1,000 ML @ Wide Open IV. 1000 / 1000 SIG BOLUS ONE Rx#:[id number] Rocephin Inj 2,000 MG In NS Inj 100 / 100 100 ML @ 200 mls/hr IV.SIG STAT STA Rx#:[id number] Flagyl 500 MG Inj 100 ML @ 100 100 / 100 mls/hr IV.SIG STAT STA Rx#: [id number] Oral 640 / 640 Other: # Voids 3 Weight On Admission 61.235 kg - Constitutional no acute distress - Routine HEENT Exam Comments: poor dentition. - Routine Respiratory Exam Present: CTA bilaterally - Routine Cardiovascular Exam Present: RRR - Routine Abdominal Exam Present: soft - Routine Extremities Exam Comments: no pedal edema. - Routine Neurological Exam Present: alert, oriented X3 Results - Labs CBC & Chem 7: 06/12/18 06:23 06/12/18 06:23 Laboratory Results - last 24 hr 06/11/18 06/11/18 06/11/18 13:20 13:20 13:20 WBC 7.8 RBC 3.86 L Hgb 10.8 L Hct 33.1 L MCV 85.8 MCH 28.0 MCHC 32.6 RDW 14.5 Plt Count 404 D MPV 8.4 Neut % (Auto) 42.1 Lymph % (Auto) 38.0 Collier % (Auto) 11.5 H Eos % (Auto) 7.6 H Baso % (Auto) 0.8 Neut # (Auto) 3.3 Lymph # (Auto) 3.0 Collier # (Auto) 0.9 Eos # (Auto) 0.6 H Baso # (Auto) 0.1 WBC Differential . Differential Comment Auto diff final PT 10.5 INR 1.0 APTT 23.3 L Sodium 142 Potassium 3.3 L Chloride 107 Carbon Dioxide 25.6 Anion Gap 9 BUN 13 Creatinine 0.85 Estimated GFR 65 L Random Glucose 121 H Lactic Acid Calcium 8.9 Magnesium Total Bilirubin 0.2 AST 11 L ALT 13 Alkaline Phosphatase 65 Total Creatine Kinase Troponin I Less than 0.02 L Total Protein 7.5 Albumin 3.0 L Urine Color Urine Clarity Urine pH Ur Specific [place] Urine Protein Urine Glucose (UA) Urine Ketones Urine Occult Blood Urine Nitrate Urine Bilirubin Urine Urobilinogen Ur Leukocyte Esterase Urine RBC Urine WBC Urine WBC Clumps Ur Squamous Epith Cells Urine Bacteria Urine Mucus Micro UA Comment Ur Microscopic Review Urine Culture Comments 06/11/18 06/11/18 06/11/18 13:20 13:25 15:09 WBC RBC Hgb Hct MCV MCH MCHC RDW Plt Count MPV Neut % (Auto) Lymph % (Auto) Collier % (Auto) Eos % (Auto) Baso % (Auto) Neut # (Auto) Lymph # (Auto) Collier # (Auto) Eos # (Auto) Baso # (Auto) WBC Differential Differential Comment PT INR APTT Sodium Potassium Chloride Carbon Dioxide Anion Gap BUN Creatinine Estimated GFR Random Glucose Lactic Acid 1.0 Calcium Magnesium 2.2 Total Bilirubin AST ALT Alkaline Phosphatase Total Creatine Kinase 30 Troponin I Total Protein Albumin Urine Color Yellow Urine Clarity Turbid H Urine pH 7.0 Ur Specific [place] 1.012 Urine Protein 100 H Urine Glucose (UA) Negative Urine Ketones Negative Urine Occult Blood Moderate H Urine Nitrate Negative Urine Bilirubin Negative Urine Urobilinogen Less than 2 Ur Leukocyte Esterase Moderate H Urine RBC 122 H Urine WBC Urine WBC Clumps Many H Ur Squamous Epith Cells 22 Urine Bacteria Moderate H Urine Mucus Many H Micro UA Comment Culture indicated Ur Microscopic Review Not Reportable Urine Culture Comments Culture indicated 06/12/18 06/12/18 06:23 06:23 WBC 5.0 RBC 3.25 L Hgb 9.2 L Hct 27.7 L MCV 85.4 MCH 28.2 MCHC 33.0 RDW 14.7 Plt Count 333 MPV 8.2 Neut % (Auto) 36.5 Lymph % (Auto) 38.7 Collier % (Auto) 15.3 H Eos % (Auto) 8.7 H Baso % (Auto) 0.8 Neut # (Auto) 1.8 Lymph # (Auto) 1.9 Collier # (Auto) 0.8 Eos # (Auto) 0.4 Baso # (Auto) 0.0 WBC Differential . Differential Comment Auto diff final PT INR APTT Sodium 145 Potassium 3.6 Chloride 113 H Carbon Dioxide 25.7 Anion Gap 6 BUN 8 Creatinine 0.72 Estimated GFR 78 L Random Glucose 83 Lactic Acid Calcium 8.3 L Magnesium Total Bilirubin 0.4 AST 10 L ALT 10 Alkaline Phosphatase 60 Total Creatine Kinase Troponin I Total Protein 6.5 D Albumin 2.5 L Urine Color Urine Clarity Urine pH Ur Specific [place] Urine Protein Urine Glucose (UA) Urine Ketones Urine Occult Blood Urine Nitrate Urine Bilirubin Urine Urobilinogen Ur Leukocyte Esterase Urine RBC Urine WBC Urine WBC Clumps Ur Squamous Epith Cells Urine Bacteria Urine Mucus Micro UA Comment Ur Microscopic Review Urine Culture Comments - Imaging Impressions Chest X-Ray 06/11/18 13:11 CONCLUSION: 1. Stable examination demonstrating senescent changes with mild bibasilar airspace disease, presumably atelectasis. 2. Hiatal hernia. Chest CTA 06/11/18 14:17 CONCLUSION: 1. Examination quality is less than optimal secondary to respiratory motion artifact. However, given this limitation no PE is identified. 2. Suspected material within the right lower lobe airways suggesting aspiration. 3. Moderate to large hiatal hernia. Assessment and Plan - Plan Aspiration pneumonia The pt presents with weakness, cough and shortness of breath. Chest CT: Suspected material within the right lower lobe airways suggesting aspiration. -oxygen and nebs as needed. -continue IV Zosyn. -sputum culture and blood cultures pending. -PT/OT/ST. -incentive spirometry. Hypokalemia replaced. history of GIB No bleeding since previous hospitalization. Hgb is stable. UTI UA indicative of infection. -continue Zosyn. -follow urine culture. PPx: SCDs Discharge Planning: dc planning within the next 1-2 days- pending the clinical course. awaiting PT evaluation.
--- NOTE | 2018-06-12 12:49 | P.DIET ---
Nutritional Evaluation Type of nutrition evaluation: initial Nutrition screening: Weight Loss > 10 lbs Subjective Subjective Comments: Pt reports poor po intake and appetite 4 days [employer]. Reports some swallowing problems. Current intake is 50-75%. Objective - Diagnosis Pneumonia, Hypoxia - Objective % IBW: 105 (IBW = 120#) Body Weight Used for Calculations: Actual (57.4 kg) Energy Needs - Lower Range (kCal/kg): 25 Energy Needs - Upper Range (kCal/kg): 30 Lower Limit kCal/kg (kCals): 1,435 Upper Limit kCal/kg (kCals): 1,722 Lower Limit Protein Factor (Grams per Kg): 1.0 Upper Limit Protein Factor (Grams per Kg): 1.5 Lower Protein Needs (Protein): 57 Upper Protein Needs (Protein): 86 Fluid Factor (ml/kg): 30 Estimated Fluid Needs (ml): 1,722 Dietitian Reviewed in Medical Record: Current diet, Curent medications, Intake & Output, Labs, Medical history Diet Order: Heart Healthy, Soft Oral Diet Intake Amount: Fair 50-75% Assessment Assessment: Pt is at high nutrition risk 2' to unintentional weight loss. Pt's weight is wnl of IBW range with a BMI of 21.7. PO intake is fair to good. Will send Ensure Enlive bid for added nutrition. Each 8 oz serving provides 350 kcals and 20 gms protein. Recommendations: 1. Continue current diet 2. Ensure Enlive bid Dietitian to Monitor: Lab values, Supplement acceptance, Intake & Output, Diet tolerance, Weight change, PO Intake, Medical course
--- NOTE | 2018-06-12 14:11 | P.DCO ---
- Physical Therapy Order: Evaluate and treat - Home Health Nursing Order: Medical education, Signs/symptoms of disease process, Medication education-adverse effect, Nursing assessment with vital signs - Certification I have seen patient Nadine Byrnes on 06/12/18. My clinical findings support the need for the requested home health care services because: Limited mobility due to disease progression, Patient has SOB I certify that my clinical findings support that this patient is homebound because: Unsteady gait/balance
--- NOTE | 2018-06-12 22:49 | ECG ---
Date Performed: 06/11/2018 Time Performed: 14:36:20 PTAGE: 77 years EKG: Sinus rhythm WITH SINUS ARRHYTHMIA NORMAL ECG PREVIOUS TRACING : 05/12/2018 00.32 Since the previous tracing, no significant change noted DOCTOR: Lina Gonzalez Interpretating Date/Time 06/12/2018 22:47:40
[2018-06-13] MEDS: Piperacil/Tazo 4.5 GM Premix 4.5 GM/100 ML BAG IV.SIG SCH ×4 (04:19→21:00)
[2018-06-13 08:13] LABS: Baso % (Auto) 0.7 % (0.0-2.0); Eos # (Auto) 0.6 th/mm3 (0.0-0.4); Eos % (Auto) 10.3 % (0.0-4.0); Hemoglobin 9.7 gm/dL (11.6-15.3); Lymph # (Auto) 2.4 th/mm3 (1.0-4.8); Mean Corpuscular HGB Conc 32.4 % (32.0-36.0); Mean Corpuscular Hemoglobin 27.7 pg (27.0-34.0); Mean Corpuscular Volume 85.7 fL (80.0-100.0); Mean Platelet Volume 7.8 fL (7.0-11.0); Mono # (Auto) 0.6 th/mm3 (0.0-0.9); Platelet Count 351 th/mm3 (150-450); Red Cell Distribution Width 14.8 % (11.6-17.2); White Blood Count 5.7 th/mm3 (4.0-11.0)
[2018-06-13] MEDS: Lactobacillus Acidophilus/L. Spores Tablet PO SCH ×3 (09:04→17:11)
[2018-06-13] MEDS: amLODIPine 5 MG Tablet PO SCH (09:04)
[2018-06-13] MEDS: Sertraline 50 MG Tablet PO SCH (09:04)
[2018-06-13] MEDS: ALPRAZolam 0.5 MG Tablet PO PRN ×2 (09:04→21:00)
--- NOTE | 2018-06-13 09:56 | P.PNIM ---
Subjective Interval history: f/u; aspiration pneumonia in no acute distress. however still feeling weak with occasional cough. no fever. Physical Exam Vital signs: Vital Signs 06/12/18 12:00 06/12/18 16:00 06/12/18 19:36 Temperature 98.0 F 98.2 F Pulse Rate 89 89 Respiratory Rate 20 20 Blood Pressure 109/58 L 145/72 H Pulse Oximetry 94 L 94 L 97 06/12/18 20:00 06/13/18 00:00 06/13/18 04:00 Temperature 98.1 F 97.4 F L 97.5 F L Pulse Rate 85 72 73 Respiratory Rate 22 22 20 Blood Pressure 141/69 H 121/64 120/58 L Pulse Oximetry 95 94 L 96 06/13/18 08:00 Temperature Pulse Rate Respiratory Rate Blood Pressure Pulse Oximetry 97 Intake & Output 06/12/18 06/13/18 06/13/18 18:59 06:59 18:59 Intake Total 2560 / 2560 440 / 440 Balance 2560 / 2560 440 / 440 Weight 57.2 kg Intake: IV 2200 / 2200 200 / 200 NS Inj 1,000 ML @ 50 mls/hr IV. 1999 / 1999 CONT .Q20H SATURNINO Rx#:[id number] Zosyn 4.5 GM Premix 4.5 gm In 200 / 200 200 / 200 100 ml @ 200 mls/hr IV.SIG Q6H SATURNINO Rx#:[id number] Oral 360 / 360 240 / 240 Other: # Voids 4 5 # Bowel Movements 1 2 - Constitutional no acute distress - Routine Respiratory Exam Present: CTA bilaterally - Routine Cardiovascular Exam Present: RRR - Routine Abdominal Exam Present: soft - Routine Extremities Exam Comments: no pedal edema. - Routine Neurological Exam Present: alert, oriented X3 Results - Labs CBC & Chem 7: 06/13/18 06:29 06/12/18 06:23 Laboratory Results - last 24 hr 06/13/18 06:29 WBC 5.7 RBC 3.50 L Hgb 9.7 L Hct 30.0 L MCV 85.7 MCH 27.7 MCHC 32.4 RDW 14.8 Plt Count 351 MPV 7.8 Neut % (Auto) 36.0 Lymph % (Auto) 42.0 Caroline % (Auto) 11.0 H Eos % (Auto) 10.3 H Baso % (Auto) 0.7 Neut # (Auto) 2.0 Lymph # (Auto) 2.4 Caroline # (Auto) 0.6 Eos # (Auto) 0.6 H Baso # (Auto) 0.0 WBC Differential . Differential Comment Auto diff final Microbiology 06/11/18 13:28 Blood - Peripheral Aerobic Blood Culture - Preliminary gram positive cocci 06/11/18 13:28 Blood - Peripheral Anaerobic Blood Culture - Preliminary No growth in 1 day 06/11/18 23:12 Sputum - Oral Tracheal Aspirate Gram Stain - Final 06/11/18 23:12 Sputum - Oral Tracheal Aspirate Sputum Culture - Preliminary Immature growth - reincubate 06/11/18 15:09 Clean Catch Urine Urine Culture - Final 50-100,000 cfu/mL mixed gram positive gary (probable contaminants) 06/11/18 13:20 Blood - Peripheral Aerobic Blood Culture - Preliminary No growth in 1 day 06/11/18 13:20 Blood - Peripheral Anaerobic Blood Culture - Preliminary No growth in 1 day Assessment and Plan - Plan Aspiration pneumonia The pt presents with weakness, cough and shortness of breath. Chest CT: Suspected material within the right lower lobe airways suggesting aspiration. -oxygen and nebs as needed. -continue IV Zosyn. -one bottle of blood cultures positive for gram-positive cocci- one dose of IV Vanco today and follow till the finalized. -PT/OT/ST. -incentive spirometry. Hypokalemia replaced. history of GIB No bleeding since previous hospitalization. Hgb is stable. UTI UA indicative of infection. -continue Zosyn. -follow urine culture. PPx: SCDs Discharge Planning: dc planning within the next 1-2 days- pending the clinical course. d/w the patient and she's interested in going to [facility]. will consult case management to assist with dc planning.
[2018-06-13] MEDS ORDERED: Vancomycin Inj 1 GM/200 ML PIGGYBACK IV.SIG ONE (09:57)
[2018-06-13] MEDS ORDERED: Vancomycin Inj 1,000 MG in Sodium Chlor 0.9% Inj 250 ML IV.SIG ONE (10:00)
[2018-06-14] MEDS: Piperacil/Tazo 4.5 GM Premix 4.5 GM/100 ML BAG IV.SIG SCH ×4 (04:00→21:18)
[2018-06-14] MEDS: amLODIPine 5 MG Tablet PO SCH (09:00)
[2018-06-14] MEDS: ALPRAZolam 0.5 MG Tablet PO PRN ×2 (09:00→21:18)
[2018-06-14] MEDS: Lactobacillus Acidophilus/L. Spores Tablet PO SCH ×3 (09:00→18:06)
[2018-06-14] MEDS: Sertraline 50 MG Tablet PO SCH (09:00)
--- NOTE | 2018-06-14 09:51 | P.PNIM ---
Subjective Interval history: f/u; pneumonia in no acute distress. looks and feels better today. still has some dry cough. no fever. Physical Exam Vital signs: Vital Signs 06/13/18 12:00 06/13/18 16:00 06/13/18 20:00 Temperature 97.9 F 98.7 F 97.9 F Pulse Rate 80 92 H 103 H Respiratory Rate 20 20 16 Blood Pressure 117/65 157/78 H 109/62 Pulse Oximetry 97 96 94 L 06/14/18 00:00 06/14/18 01:26 06/14/18 04:00 Temperature 97.7 F 97.7 F Pulse Rate 73 77 Respiratory Rate 18 16 Blood Pressure 125/78 105/60 Pulse Oximetry 95 95 93 L 06/14/18 08:00 Temperature 99 F Pulse Rate 84 Respiratory Rate 18 Blood Pressure 130/81 Pulse Oximetry 95 Intake & Output 06/13/18 06/14/18 06/14/18 18:59 06:59 18:59 Intake Total 930 / 930 440 / 440 Balance 930 / 930 440 / 440 Weight 57.3 kg Intake: IV 450 / 450 200 / 200 Zosyn 4.5 GM Premix 4.5 gm In 200 / 200 200 / 200 100 ml @ 200 mls/hr IV.SIG Q6H SATURNINO Rx#:[id number] Vancomycin Inj 1,000 MG In NS 250 / 250 Inj 250 ML @ 250 mls/hr IV.SIG ONCE ONE Rx#:[id number] Oral 480 / 480 240 / 240 Other: # Voids 6 # Bowel Movements 1 - Constitutional no acute distress - Routine Respiratory Exam Present: CTA bilaterally - Routine Cardiovascular Exam Present: RRR - Routine Abdominal Exam Present: soft - Routine Extremities Exam Comments: no pedal edema. - Routine Neurological Exam Present: alert, oriented X3 Results - Labs CBC & Chem 7: 06/13/18 06:29 06/12/18 06:23 Microbiology 06/11/18 23:12 Sputum - Oral Tracheal Aspirate Gram Stain - Final 06/11/18 23:12 Sputum - Oral Tracheal Aspirate Sputum Culture - Preliminary gram negative rods 06/11/18 13:28 Blood - Peripheral Aerobic Blood Culture - Preliminary gram positive cocci 06/11/18 13:28 Blood - Peripheral Anaerobic Blood Culture - Preliminary No growth in 2 days 06/11/18 13:20 Blood - Peripheral Aerobic Blood Culture - Preliminary No growth in 2 days 06/11/18 13:20 Blood - Peripheral Anaerobic Blood Culture - Preliminary No growth in 2 days Assessment and Plan - Plan Aspiration pneumonia The pt presents with weakness, cough and shortness of breath. Chest CT: Suspected material within the right lower lobe airways suggesting aspiration. -oxygen and nebs as needed. -continue IV Zosyn. -one bottle of blood cultures positive for gram-positive cocci- likely contamination since the rest of the bottles negative so far. -sputum culture with gram-negative andrae -PT/OT/ST. -incentive spirometry. Hypokalemia replaced. history of GIB No bleeding since previous hospitalization. Hgb is stable. UTI UA indicative of infection. -continue Zosyn. -follow urine culture. PPx: SCDs Discharge Planning: dc planning; SNF- possibly tomorrow- if stable- pending the cultures.
[2018-06-15] MEDS: Piperacil/Tazo 4.5 GM Premix 4.5 GM/100 ML BAG IV.SIG SCH ×2 (03:48→10:49)
[2018-06-15] MEDS: amLODIPine 5 MG Tablet PO SCH (08:23)
[2018-06-15] MEDS: ALPRAZolam 0.5 MG Tablet PO PRN (08:23)
[2018-06-15] MEDS: Lactobacillus Acidophilus/L. Spores Tablet PO SCH (08:23)
[2018-06-15] MEDS: Sertraline 50 MG Tablet PO SCH (08:23)
[2018-06-15 08:27] VITALS: RESP 17
--- NOTE | 2018-06-15 08:52 | P.PNIM ---
Subjective Interval history: f/u; pneumonia in no acute distress. overall looking and feeling better today. sob and cough improved. no fever. Physical Exam Vital signs: Vital Signs 06/14/18 12:00 06/14/18 16:00 06/14/18 20:00 Temperature 98 F 98.3 F 98.2 F Pulse Rate 83 88 73 Respiratory Rate 18 18 17 Blood Pressure 101/63 135/67 119/60 Pulse Oximetry 96 94 L 95 06/14/18 23:56 06/15/18 00:00 06/15/18 04:00 Temperature 97.8 F 98 F Pulse Rate 86 70 72 Respiratory Rate 16 14 Blood Pressure 113/60 122/88 Pulse Oximetry 93 L 94 L 06/15/18 08:26 06/15/18 08:27 Temperature 98.3 F Pulse Rate 73 Respiratory Rate 17 Blood Pressure 113/69 Pulse Oximetry 97 97 Intake & Output 06/14/18 06/15/18 06/15/18 18:59 06:59 18:59 Intake Total 1160 / 1160 200 / 200 Output Total 400 / 400 Balance 1160 / 1160 -200 / -200 Weight 58.5 kg Intake: IV 200 / 200 200 / 200 Zosyn 4.5 GM Premix 4.5 gm In 200 / 200 200 / 200 100 ml @ 200 mls/hr IV.SIG Q6H SATURNINO Rx#:[id number] Oral 960 / 960 Output: Urine 400 / 400 Other: # Voids 6 Date of Last Bowel Movement 06/14/18 06/14/18 # Bowel Movements 1 - Constitutional no acute distress - Routine Respiratory Exam Present: CTA bilaterally - Routine Cardiovascular Exam Present: RRR - Routine Abdominal Exam Present: soft - Routine Extremities Exam Comments: no pedal edema. - Routine Neurological Exam Present: alert, oriented X3 Results - Labs CBC & Chem 7: 06/13/18 06:29 06/12/18 06:23 Microbiology 06/11/18 23:12 Sputum - Oral Tracheal Aspirate Gram Stain - Final 06/11/18 23:12 Sputum - Oral Tracheal Aspirate Sputum Culture - Preliminary gram negative rods 06/11/18 13:20 Blood - Peripheral Aerobic Blood Culture - Preliminary No growth in 3 days 06/11/18 13:20 Blood - Peripheral Anaerobic Blood Culture - Preliminary No growth in 3 days 06/11/18 13:28 Blood - Peripheral Aerobic Blood Culture - Final Micrococcus species 06/11/18 13:28 Blood - Peripheral Anaerobic Blood Culture - Preliminary No growth in 3 days - Procedures none. Assessment and Plan - Plan Aspiration pneumonia The pt presents with weakness, cough and shortness of breath. Chest CT: Suspected material within the right lower lobe airways suggesting aspiration. -oxygen and nebs as needed. -continue IV Zosyn. -one bottle of blood cultures positive for micrococcus- likely contamination since the rest of the bottles negative . -sputum culture with gram-negative andrae- awaiting the final ID and sensitivity. -PT/OT/ST. -incentive spirometry. Hypokalemia replaced. history of GIB No bleeding since previous hospitalization. Hgb is stable. UTI UA indicative of infection however UC with mixed gram-positive gary. -continue Zosyn. PPx: SCDs Discharge Planning: dc planning; SNF within the next 24 hrs- pending the sputum culture. E-Foaesce was reviewed prior to discharge.
--- NOTE | 2018-06-15 12:02 | P.DS ---
Date of admission: 06/11/18 17:38 Primary care physician: Jaswinder Roberson DO Brief History from admission: The patient is a 77-year-old female with past medical history of GI bleed and hypertension who is presenting to the hospital with weakness and cough. The patient says that earlier this month she came to the hospital and was worked up for a GI bleed. She says they were unable to find the location and cause of the bleed. She has not noticed any further bleeding since being in the hospital. She was discharged to a [facility] and eventually went home. The patient says that over the past 3-4 days she has experienced increased weakness , cough, stuffy nose, feeling tired and overall just feeling lousy. She says she has had a decreased appetite over the past 4 days. She has been having bowel movements. She is complaining of shortness of breath. She says that first her cough was dry but it has since turned productive. She measured a temperature of 99 at home. DS: Medications - Discharge Medications Prescriptions: alprazolam 0.5 mg PO BID PRN #4 tab PRN Reason: Anxiety DS: Summary Hospital Course: patient was admitted with pneumonia. she was initially started on broad- spectrum IV antibiotics. her sputum culture was positive for stenotrophomonas. she will continue with oral antibiotics to finish the course of therapy. - Time Spent with Patient Total time spent providing and/or coordinating discharge services: Less than 30 minutes - Quality: VTE Deep Vein Thrombosis/Pulmonary Embolism Present on Admission: Yes Exam Vital signs: Vital Signs 06/14/18 16:00 06/14/18 20:00 06/14/18 23:56 Temperature 98.3 F 98.2 F 97.8 F Pulse Rate 88 73 86 Respiratory Rate 18 17 16 Blood Pressure 135/67 119/60 113/60 Pulse Oximetry 94 L 95 93 L 06/15/18 00:00 06/15/18 04:00 06/15/18 08:26 Temperature 98 F 98.3 F Pulse Rate 70 72 73 Respiratory Rate 14 17 Blood Pressure 122/88 113/69 Pulse Oximetry 94 L 97 06/15/18 08:27 Temperature Pulse Rate Respiratory Rate Blood Pressure Pulse Oximetry 97 Intake & Output 06/14/18 06/15/18 06/15/18 18:59 06:59 18:59 Intake Total 1160 / 1160 200 / 200 Output Total 400 / 400 Balance 1160 / 1160 -200 / -200 Weight 58.5 kg Intake: IV 200 / 200 200 / 200 Zosyn 4.5 GM Premix 4.5 gm In 200 / 200 200 / 200 100 ml @ 200 mls/hr IV.SIG Q6H SATURNINO Rx#:[id number] Oral 960 / 960 Output: Urine 400 / 400 Other: # Voids 6 Date of Last Bowel Movement 06/14/18 06/14/18 # Bowel Movements 1 - Constitutional no acute distress - Routine Respiratory Exam Present: CTA bilaterally - Routine Cardiovascular Exam Present: RRR - Routine Abdominal Exam Present: soft - Routine Extremities Exam Comments: no pedal edema. - Routine Neurological Exam Present: alert, oriented X3 Results Procedures completed during hospitalization: none. Labs on day of discharge: Preliminary micro results at discharge 06/11/18 13:20 Aerobic Blood Culture - Preliminary Blood - Peripheral No growth in 4 days Anaerobic Blood Culture - Preliminary No growth in 4 days 06/11/18 13:28 Anaerobic Blood Culture - Preliminary Blood - Peripheral No growth in 4 days - Impressions ITS Impressions Chest X-Ray 06/11/18 13:11 CONCLUSION: 1. Stable examination demonstrating senescent changes with mild bibasilar airspace disease, presumably atelectasis. 2. Hiatal hernia. Chest CTA 06/11/18 14:17 CONCLUSION: 1. Examination quality is less than optimal secondary to respiratory motion artifact. However, given this limitation no PE is identified. 2. Suspected material within the right lower lobe airways suggesting aspiration. 3. Moderate to large hiatal hernia. Discharge Plan - Discharge Disposition Patient Disposition: Discharge to SNF - Discharge Condition Condition: Stable - Discharge Order Discharge Orders: Discharge Order (Routine); Ordered 06/15/18 Ordered By: Reed Doty - Physicians Team Primary Care Provider: Jaswinder Roberson Attending Provider: Reed Doty Other Providers: [employer]
[2018-06-15 12:50] VITALS: BP 100/67; TEMP 98.1; O2SAT 94
[2018-06-15 16:56] VITALS: PULSE 81
== END 2018-06-15 16:25 ==
LOC: NEPE 12:58 → NEDA 17:38 → N04 19:42
PROVIDERS: ADMIT Internal Medicine; ATTEND Internal Medicine
DX: J98.11 Atelectasis; F32.9 Major depressive disorder, single episode, unspecified; J69.0 Pneumonitis due to inhalation of food and vomit; K44.9 Diaphragmatic hernia without obstruction or gangrene; R09.02 Hypoxemia; Z87.891 Personal history of nicotine dependence; E87.6 Hypokalemia; N39.0 Urinary tract infection, site not specified; R73.9 Hyperglycemia, unspecified; I10 Essential (primary) hypertension; F41.9 Anxiety disorder, unspecified; D64.9 Anemia, unspecified